=== PATIENT | female | born 1960 | race Caucasian/White ===

== ENCOUNTER 2019-03-22 16:47 | Emergency (ER) | payer MEDICARE, OTHER ==
[~2019-03-22] VITALS: Ht 167.6 cm; Wt 81.2 kg
[2019-03-22] MEDS ORDERED: IBUPROFEN 800 MG (MOTRIN) TAB PO STA (17:21)
--- OUTSIDE RECORDS SUMMARY | 2019-03-22 17:30 | XMS REPORT ---
Author Author KEVIN RUBI [employer] Address Unknown Phone Unavailable Care Team Providers Care Senior Revenue Accountant Name Role Phone KEVIN RUBI CP Unavailable Allergies, Adverse Reactions, Alerts Substance Reaction Event Type Iodine Info Not Available Drug Allergy Codeine Sulfate Info Not Available Drug Allergy Problems Problem Type Condition Code Onset Dates Condition Status Assessment Dental examination Z01.20 Active Medications Medication Code System Code Instructions Start Date End Date Status Dosage Methadone HCl [facility] [address]-76 not defined Metformin HCl [facility] [address]-00 not defined Nexium [facility] [address]-34 not defined Potassium NDC 0 [place] [address]-66 not defined Lisinopril-Hydrochlorothiazide [facility] [address]-15 not defined Wellbutrin NDC 0 not defined Simvastatin [facility] [address]-88 not defined Lidoderm [facility] [address]-68 [place] [address]-46 not defined BusPIRone HCl [facility] [address]-46 not defined Procedures Procedure Coding System Code Date INTRAORL-PERIAPICAL 1 FILM 70029 CPT-4 D0220 Sep 02, 2016 INTRAORL-PERIAPICAL EA ADD FILM CPT-4 D0230 Sep 02, 2016 LTD ORAL EVALUATION - PROBLEM FOCUS CPT-4 D0140 Sep 02, 2016 INTRAORL-PERIAPICAL EA ADD FILM CPT-4 D0230 Sep 02, 2016 INTRAORL-PERIAPICAL EA ADD FILM CPT-4 D0230 Sep 02, 2016 INTRAORL-PERIAPICAL EA ADD FILM CPT-4 D0230 Sep 02, 2016 INTRAORL-PERIAPICAL EA ADD FILM CPT-4 D0230 Sep 02, 2016 Vital Signs Date/Time: Sep 02, 2016 Blood Pressure Diastolic 74, mmHg Blood Pressure Systolic 129 mmHg Results No Known Results Summary Purpose eClinicalWorks Submission
[2019-03-22 17:32] LABS: BILIRUBIN,URINE NEGATIVE (NEGATIVE); CLARITY,URINE CLEAR; COLOR,URINE YELLOW; GLUCOSE, URINE (UA) NEGATIVE (NEGATIVE); KETONES,URINE NEGATIVE (NEGATIVE); LEUKOCYTE ESTERASE ,URINE 1+ (NEGATIVE); NITRITE,URINE NEGATIVE (NEGATIVE); PH,URINE 5 (5-9); PROTEIN,URINE 1+ (NEGATIVE); UROBILINOGEN,URINE NORMAL (NORMAL)
[2019-03-22 17:43] LABS: BACTERIA,URINE NEGATIVE /HPF; SQUAMOUS EPITHELIAL CELL,UR RARE /HPF; WBC,URINE RARE /HPF
[2019-03-22 17:46] LABS: AMPHETAMINE SCREEN, URINE NEGATIVE (NEGATIVE); BARBITURATE SCREEN URINE NEGATIVE (NEGATIVE); BENZODIAZEPINES SCREEN URINE POSITIVE (NEGATIVE); CANNABINOID SCREEN, URINE NEGATIVE (NEGATIVE); COCAINE SCREEN URINE NEGATIVE (NEGATIVE); METHADONE STAT NEGATIVE (NEGATIVE); METHAMPHETAMINE SCREEN URINE S NEGATIVE (NEGATIVE); OPIATE SCREEN URINE NEGATIVE (NEGATIVE); OXYCODONE STAT NEGATIVE (NEGATIVE); PROPOXYPHENE STAT NEGATIVE (NEGATIVE); TRICYCLIC ANTIDEPRESSANTS SCRE POSITIVE (NEGATIVE)
--- NOTE | 2019-03-22 18:03 | Diagnostic Imaging Report ---
INDICATION: Fall. Back pain. FINDINGS: There is very slight anterolisthesis of L4 on L5. Alignment is otherwise normal. The vertebral body heights are maintained. There is disc space height loss at L4-5 and L5-S1 as well as advanced facet arthropathy at each level. The visualized bones of the pelvis are unremarkable. There are surgical clips in the right upper quadrant. IMPRESSION: 1. Lumbar degenerative disc disease and facet arthropathy, most advanced at L4-5 and L5-S1. The vertebral body heights are well maintained. There is slight degenerative anterolisthesis of L4 on L5. Alignment is otherwise normal. Dictated by: Dictated on workstation # [id number]
--- NOTE | 2019-03-22 18:05 | Diagnostic Imaging Report ---
EXAMINATION: Two views of the thoracic spine. INDICATION: Fall and back pain. FINDINGS: Alignment of the thoracic spine appears normal. There vertebral body heights appear maintained. There are mild degenerative endplate changes with endplate sclerosis and some small anterior thoracic osteophytes. All pedicles are unremarkable in the AP view. No posterior rib fracture evident and the visualized portion of the lungs appears clear. IMPRESSION: Mild thoracic degenerative disc disease. The vertebral body heights appear maintained. Alignment appears normal. Dictated by: Dictated on workstation # [id number]
--- NOTE | 2019-03-22 18:22 | ED Back Pain ---
General Chief Complaint: Back Problems Stated Complaint: FALL,BACK PAIN Nursing Triage Note: Pt taken to rm 9 in wheelchair. Pt reports slipping off of bed this morning, falling directly onto back and grandson falling on top of pt. Pt reports falling on a phone body piercer. Pt reports more pain on the L side. Nursing Sepsis Screen: No Definite Risk History of Present Illness Date Seen by Provider: Mar 22, 2019 Time Seen by Provider: 17:00 Initial Comments 58 -year-old female presents for low mid and low back pain. She reports this morning that she slid off the bed and landed on her buttocks, then her 3 year old grandchild fell on top of her. She has a long-standing history of cervical disc disease. She is scheduled to see a claims account specialist at [facility] next Tuesday for chronic lumbar pain. She denies any paresthesias or radicular symptoms in her lower extremities. No bowel or bladder incontinence or retention. She is on Suboxone and cannot take additional pain medication other than Tylenol or ibuprofen. She is on Flexeril and took a 10 mg tablet this morning and just before coming here. Timing/Duration: 4-6 Hours Severity: Mild Pain/Injury Location: Back Method of Injury: Fall Associated Symptoms: muscle spasms; No weakness, No numbness in legs/feet, No tingling in legs/feet, No sensory/motor loss; lower back pain; No loss of bladder control, No loss of bowel control Allergies and Home Medications Allergies Coded Allergies: No Known Drug Allergies (Unverified , 03/22/19) Patient Home Medication List Home Medication List Reviewed: Yes Review of Systems Constitutional: no symptoms reported Musculoskeletal: see HPI, back pain All Other Systems Reviewed Negative Unless Noted: Yes Past Iwamogu-Mqpxey-Avnnnu Hx Past Med/Social Hx: Reviewed Nursing Past Med/Soc Hx Patient Social History Alcohol Use: Denies Use Recreational Drug Use: No Smoking Status: Never a Smoker 2nd Hand Smoke Exposure: No Recent Foreign Travel: No Contact w/Someone Who Travel: No Recent Infectious Disease Expo: No Recent Hopitalizations: No Physical Abuse: No Sexual Abuse: No Past Medical History Cardiac: Yes (tachycardia) Irregular Heartbeat Musculoskeletal: Yes Arthritis, Fibromyalgia Anxiety, Depression Physical Exam Vital Signs Vital Signs - First Documented 03/22/19 16:55 Temp 98.2 Pulse 113 Resp 22 B/P (MAP) 149/76 (100) Pulse Ox 99 O2 Delivery Room Air Capillary Refill : Less Than 3 Seconds Height, Weight, BMI Height: 5'6.00" Weight: 179lbs. oz. 81.436156qu; BMI Method:Stated General Appearance: No Apparent Distress, WD/WN Neck: Full Range of Motion, Normal Inspection, Non Tender, Supple Cardiovascular: Regular Rate, Rhythm, No Edema, No Murmur, Normal Peripheral Pulses Respiratory: Chest Non Tender, Lungs Clear, Normal Breath Sounds Gastrointestinal: Normal Bowel Sounds, Non Tender, Soft Back: Normal Inspection, No Vertebral Tenderness, Decreased Range of Motion ( secondary to pain), Muscle Spasm; No Vertebral Tenderness; Other (Power V/V L4- S1, neg SLR. Steady gait, able to toe and heel walk. ) Neurologic/Psychiatric: Alert, Oriented x3, No Motor/Sensory Deficits, Normal Mood/Affect Progress/Results/Core Measures Results/Orders Lab Results Laboratory Tests Test 03/22/19 16:59 Range/Units Urine Color YELLOW Urine Clarity CLEAR Urine pH 5 5-9 Urine Specific [place] 1.020 1.016-1.022 Urine Protein 1+ H NEGATIVE Urine Glucose (UA) NEGATIVE NEGATIVE Urine Ketones NEGATIVE NEGATIVE Urine Nitrite NEGATIVE NEGATIVE Urine Bilirubin NEGATIVE NEGATIVE Urine Urobilinogen NORMAL NORMAL MG/DL Urine Leukocyte Esterase 1+ H NEGATIVE Urine RBC (Auto) NEGATIVE NEGATIVE Urine RBC NONE /HPF Urine WBC RARE /HPF Urine Squamous Epithelial Cells RARE /HPF Urine Crystals NONE /LPF Urine Bacteria NEGATIVE /HPF Urine Casts PRESENT /LPF Urine Hyaline Casts 10-25 H /LPF Urine Mucus NEGATIVE /LPF Urine Culture Indicated NO Urine Opiates Screen NEGATIVE NEGATIVE Urine Oxycodone Screen NEGATIVE NEGATIVE Urine Methadone Screen NEGATIVE NEGATIVE Urine Propoxyphene Screen NEGATIVE NEGATIVE Urine Barbiturates Screen NEGATIVE NEGATIVE Ur Tricyclic Antidepressants Screen POSITIVE H NEGATIVE Urine Phencyclidine Screen NEGATIVE NEGATIVE Urine Amphetamines Screen NEGATIVE NEGATIVE Urine Methamphetamines Screen NEGATIVE NEGATIVE Urine Benzodiazepines Screen POSITIVE H NEGATIVE Urine Cocaine Screen NEGATIVE NEGATIVE Urine Cannabinoids Screen NEGATIVE NEGATIVE My Orders Orders - DAIJA WARD Drug Screen Stat (Urine) (03/22/19 16:54) Ua Culture If Indicated (03/22/19 16:54) Thoracic Spine, 2 Views Only (03/22/19 17:21) Lumbar Spine - 2-3 Views (03/22/19 17:21) Ibuprofen Tablet (Motrin Tablet) (03/22/19 17:21) Vital Signs/I&O 03/22/19 03/22/19 16:55 18:40 Temp 98.2 98.2 Pulse 113 104 Resp 22 18 B/P (MAP) 149/76 (100) 122/69 (86) Pulse Ox 99 97 O2 Delivery Room Air Room Air Blood Pressure Mean: 100 Diagnostic Imaging Plain Films/CT/US/NM/MRI: other (L-spine) Comments [facility] [place] NAME: DELL LYLES [facility] REC#: [id number] PT STATUS: REG ER : 1960 PHYSICIAN: DAIJA WARD ADMIT DATE: 03/22/19/ER Draft Date of Exam:03/22/19 LUMBAR SPINE - 2-3 VIEWS INDICATION: Fall. Back pain. FINDINGS: There is very slight anterolisthesis of L4 on L5. Alignment is otherwise normal. The vertebral body heights are maintained. There is disc space height loss at L4-5 and L5-S1 as well as advanced facet arthropathy at each level. The visualized bones of the pelvis are unremarkable. There are surgical clips in the right upper quadrant. IMPRESSION: 1. Lumbar degenerative disc disease and facet arthropathy, most advanced at L4-5 and L5-S1. The vertebral body heights are well maintained. There is slight degenerative anterolisthesis of L4 on L5. Alignment is otherwise normal. Dictated on workstation # [id number] Dict: 03/22/19 1758 Trans: 03/22/19 1802 [id number] Interpreted by: BARBARA ANDERSON MD Electronically signed by: Reviewed: Reviewed by Me Diagonstic Imaging: Xray Plain Films/CT/US/NM/MRI: other ( T-spine) Comments NAME: DELL LYLES MED REC#: [id number] PT STATUS: REG ER : 1960 PHYSICIAN: DAIJA WARD ADMIT DATE: 03/22/19/ER Draft Date of Exam:03/22/19 THORACIC SPINE, 2 VIEWS ONLY EXAMINATION: Two views of the thoracic spine. INDICATION: Fall and back pain. FINDINGS: Alignment of the thoracic spine appears normal. There vertebral body heights appear maintained. There are mild degenerative endplate changes with endplate sclerosis and some small anterior thoracic osteophytes. All pedicles are unremarkable in the AP view. No posterior rib fracture evident and the visualized portion of the lungs appears clear. IMPRESSION: Mild thoracic degenerative disc disease. The vertebral body heights appear maintained. Alignment appears normal. Dictated on workstation # [id number] Dict: 03/22/19 1759 Trans: 03/22/19 1804 [id number] Interpreted by: BARBARA ANDERSON MD Electronically signed by: Reviewed: Reviewed by Me Departure Impression Primary Impression: Back pain Qualified Codes: M54.5 - Low back pain Disposition: 01 HOME, SELF-CARE Condition: Improved Departure-Patient Inst. Decision time for Depature: 18:10 Referrals: GSUTAVO SHINE DO (PCP/Family) Primary Care Physician Patient Instructions: Low Back Pain (DC), Muscle Strain (DC) Add. Discharge Instructions: Alternate heat and ice on low back for 20 minutes at a time. Keep your scheduled appointment with [facility]. Continue to take your home medications as previously prescribed. You may take ibuprofen 600 mg every 8 hours as needed for pain. Activity as tolerated. Return to emergency department for new, urgent health care needs. All discharge instructions reviewed with patient and/or family. Voiced understanding. DAIJA WARD Mar 22, 2019 18:22
[2019-03-22 18:40] VITALS: BP 122/69
== END 2019-03-22 18:35 | disposition home or self-care (01) ==
LOC: ER 16:49
DX: M54.5 Low back pain (principal); M50.30 Other cervical disc degeneration, unspecified cervical region; M79.7 Fibromyalgia; F41.9 Anxiety disorder, unspecified; F32.9 Major depressive disorder, single episode, unspecified; W06.XXXA Fall from bed, initial encounter
CPT/HCPCS: 72070; 72100; 80306; 81000

== ENCOUNTER 2019-03-25 17:24 | Emergency (ER) | payer MEDICARE ==
[~2019-03-25] VITALS: Ht 167.6 cm; Wt 77.6 kg
--- NOTE | 2019-03-25 17:40 | ED Neck-Back Pain/Injury ---
General Chief Complaint: Head/Cervical Problems Stated Complaint: NECK PAIN Nursing Triage Note: pt fell out of bed and hit hard wood floor. Pt was seen in ED here and was discharged. The pain was not really hurting at that time. Now she has pain that radiates down the left shoulder. This pain is giving her a RUBY. Pt has limited ROM but this is not new. She has a hx of neck issues. Nursing Sepsis Screen: No Definite Risk Source of Information: Patient Exam Limitations: No Limitations History of Present Illness Date Seen by Provider: Mar 25, 2019 Time Seen by Provider: 17:40 Initial Comments 58-year-old female who presents to the emergency room with complaints of neck pain after falling out of bed last . She reports she was seen and evaluated here in the emergency room at the time of the injury but reports that she's been having neck pain that radiates down her left shoulder after a fall. She reports she has chronic neck problems/pain. Location: C-Spine Pain/Injury Location: Neck Method of Injury: Fall Associated Symptoms: No loss of bladder control, No loss of bowel control Allergies and Home Medications Allergies Coded Allergies: No Known Drug Allergies (Unverified , 03/22/19) Patient Home Medication List Home Medication List Reviewed: Yes Review of Systems Constitutional: see HPI; No chills, No fever Musculoskeletal: see HPI, neck pain All Other Systems Reviewed Negative Unless Noted: Yes Past Kfsltmz-Khmjtn-Ytsilc Hx Past Med/Social Hx: Reviewed Nursing Past Med/Soc Hx Patient Social History Alcohol Use: Denies Use Recreational Drug Use: No 2nd Hand Smoke Exposure: No Recent Foreign Travel: No Contact w/Someone Who Travel: No Recent Infectious Disease Expo: No Recent Hopitalizations: No Past Medical History Cardiac: Yes (tachycardia) Irregular Heartbeat Musculoskeletal: Yes Arthritis, Fibromyalgia Anxiety, Depression Family Medical History Reviewed Nursing Family Hx Physical Exam Vital Signs Vital Signs - First Documented 03/25/19 03/25/19 17:29 18:28 Temp 98.4 Pulse 108 Resp 18 B/P (MAP) 130/67 (88) Pulse Ox 100 O2 Delivery Room Air Capillary Refill : Less Than 3 Seconds Height, Weight, BMI Height: 5'6.00" Weight: 171lbs. oz. 77.519796ef; BMI Method:Stated General Appearance: No Apparent Distress, WD/WN Cardiovascular: Regular Rate, Rhythm, No Edema, No Gallop, No JVD, No Murmur, Normal Peripheral Pulses Respiratory: Chest Non Tender, Lungs Clear, Normal Breath Sounds, No Accessory Muscle Use, No Respiratory Distress, Accessory Muscle Use Extremity: Normal Capillary Refill Neurologic/Psychiatric: Alert, Oriented x3, Normal Mood/Affect Skin: Normal Color, Warm/Dry Progress/Results/Core Measures Results/Orders My Orders Orders - KYM KEVIN Ct Cervical Spine Wo (03/25/19 17:39) Ketorolac Injection (Toradol Injection) (03/25/19 17:45) Medications Given in ED Vital Signs/I&O 03/25/19 03/25/19 17:29 18:28 Temp 98.4 97.4 Pulse 108 78 Resp 18 18 B/P (MAP) 130/67 (88) 138/82 (100) Pulse Ox 100 O2 Delivery Room Air Room Air Blood Pressure Mean: 88 Diagnostic Imaging Diagonstic Imaging: CT Plain Films/CT/US/NM/MRI: c-spine Comments NAME: DELL LYLES [facility] REC#: [id number] PT STATUS: REG ER : 1960 PHYSICIAN: KYM KEVIN ADMIT DATE: 03/25/19/ER Signed Date of Exam: 03/25/19 CT CERVICAL SPINE WO PROCEDURE: CT cervical spine without contrast. TECHNIQUE: Multiple contiguous axial images were obtained through the cervical spine without the use of intravenous contrast. Sagittal and coronal reformations were then performed. Auto Exposure Controls were utilized during the CT exam to meet ALARA standards for radiation dose reduction. INDICATION: Fall with left shoulder pain and neck pain. COMPARISON: No prior studies are available for comparison. FINDINGS: There is straightening and slight reversal of the normal cervical lordotic curvature. There is significant multilevel degenerative disc disease with variable disc space narrowing and marginal spurring. There is also severe left-sided facet arthropathy from the C2-C5 levels. No fractures are seen. Prevertebral tissues are within normal limits. The odontoid is intact. IMPRESSION: Severe cervical spondylosis. No acute bony abnormality is detected. Dictated by: Dictated on workstation # [id number] Dict: 03/25/191810 Trans: 03/25/192058 Interpreted by: RENETTA CUNNINGHAM MD Electronically signed by: RENETTA CUNNINGHAM MD 03/25/192058 Reviewed: Reviewed by Me Departure Impression Primary Impression: Neck sprain Disposition: 01 HOME, SELF-CARE Condition: Stable/Unchanged Departure-Patient Inst. Decision time for Depature: 18:17 Referrals: GUSTAVO SHINE DO (PCP/Family) Primary Care Physician Patient Instructions: Cervical Muscle Strain (DC) Add. Discharge Instructions: You may use ibuprofen and Tylenol as directed by the bottle for pain relief. Alternating ice and heat to the sore areas at 20 minute intervals may be beneficial in alleviating pain. Follow-up with your primary care provider as needed. Return back to the emergency room for worsening symptoms or concerns as needed. All discharge instructions reviewed with patient and/or family. Voiced understanding. KYM KEVIN Mar 25, 2019 17:40
[2019-03-25] MEDS ORDERED: KETOROLAC 60 MG/2 ML VIAL IM ONE (17:45)
--- NOTE | 2019-03-25 18:14 | Diagnostic Imaging Report ---
PROCEDURE: CT cervical spine without contrast. TECHNIQUE: Multiple contiguous axial images were obtained through the cervical spine without the use of intravenous contrast. Sagittal and coronal reformations were then performed. Auto Exposure Controls were utilized during the CT exam to meet ALARA standards for radiation dose reduction. INDICATION: Fall with left shoulder pain and neck pain. COMPARISON: No prior studies are available for comparison. FINDINGS: There is straightening and slight reversal of the normal cervical lordotic curvature. There is significant multilevel degenerative disc disease with variable disc space narrowing and marginal spurring. There is also severe left-sided facet arthropathy from the C2-C5 levels. No fractures are seen. Prevertebral tissues are within normal limits. The odontoid is intact. IMPRESSION: Severe cervical spondylosis. No acute bony abnormality is detected. Dictated by: Dictated on workstation # [id number]
[2019-03-25 18:28] VITALS: BP 138/82
== END 2019-03-25 18:28 | disposition home or self-care (01) ==
LOC: EDUNIT# 17:24 → ER 17:25
DX: S13.4XXA Sprain of ligaments of cervical spine, initial encounter (principal); M79.7 Fibromyalgia; F41.9 Anxiety disorder, unspecified; F32.9 Major depressive disorder, single episode, unspecified; Z86.69 Personal history of other diseases of the nervous system and sense organs; W22.09XA Striking against other stationary object, initial encounter
CPT/HCPCS: 72125

== ENCOUNTER 2019-05-20 13:51 | Emergency (ER) | payer MEDICARE | END 2019-05-20 15:20 | disposition home or self-care (01) | LOC: ER 13:51 ==

== ENCOUNTER → 2019-08-20 | Outpatient (CLI) | payer MEDICARE ==
[2019-08-20 09:40] LABS: ALANINE AMINOTRANSFERASE 19 U/L (0-55); ALBUMIN 4.1 GM/DL (3.2-4.5); ALKALINE PHOSPHATASE 76 U/L (40-136); BILIRUBIN,TOTAL 0.2 MG/DL (0.1-1.0); BUN/CREATININE RATIO 16; CARBON DIOXIDE 26 MMOL/L (21-32); CHLORIDE 106 MMOL/L (98-107); CHOLESTEROL 126 MG/DL (< 200); CREATININE SERUM 0.85 MG/DL (0.60-1.30); GFR ESTIMATED > 60; GLUCOSE 111 MG/DL (70-105); HDL CHOLESTEROL 44 MG/DL (40-60); POTASSIUM 3.9 MMOL/L (3.6-5.0); SODIUM 141 MMOL/L (135-145); TOTAL PROTEIN 6.9 GM/DL (6.4-8.2); TRIGLYCERIDES 79 MG/DL (<150); VLDL CHOLESTEROL 16 MG/DL (5-40)
== END ==
LOC: LAB 08:35
PROVIDERS: ATTEND Internal Medicine Cardiovascular Disease
DX: E78.2 Mixed hyperlipidemia (principal); E11.9 Type 2 diabetes mellitus without complications; I10 Essential (primary) hypertension; R06.09 Other forms of dyspnea; R00.0 Tachycardia, unspecified
CPT/HCPCS: 36415; 80053; 80061; 84443

== ENCOUNTER → 2019-08-20 | Outpatient (CLI) | payer MEDICARE ==
[~2019-08-20] VITALS: Ht 168 cm; Wt 75.0 kg
[~2019-08-20] MED LIST: CATHETER FLUSH 10 ML SYR IV PRN; REGADENOSON 0.4 MG/5 ML SYR (LEXISCAN) IV ONE
[2019-08-20 10:22] VITALS: BP 145/78
[2019-08-20 10:23] VITALS: BP 118/59
--- NOTE | 2019-08-20 16:51 | STRESS TEST ---
DATE OF SERVICE: 08/20/2019 LEXISCAN MYOVIEW STRESS TEST REPORT REFERRING PHYSICIAN: Dr. Erickson. Baseline heart rate is 92. Baseline blood pressure 145/78. Baseline EKG is sinus rhythm with no ischemic changes. In summary, the patient was injected with 10.43 mCi of technetium-99 Myoview and the resting images were obtained. Then, the patient received 0.4 mg of Lexiscan followed by 30.6 mCi of technetium-99 Myoview. Throughout the test, there were no EKG changes. The resting and stress images were reviewed and compared in the short axis, horizontal long axis, and vertical long axis views. Review of the images showed a good radiotracer uptake with no significant ischemia or infarction. SSS is 1, SDS 1, TID value 0.99. On the gated images, the left ventricle appeared to be normal in size with normal contractility. Calculated ejection fraction 79%. CONCLUSION: 1. The patient tolerated Lexiscan well. 2. No significant ischemia or infarction on SPECT images. 3. Normal left ventricular size with normal contractility. Calculated ejection fraction 79%. Job ID: [id number] DocumentID: [id number] Dictated Date: 08/20/2019 11:59:29 Biometrics Analyst Date: 08/20/2019 16:49:38 Dictated By: TANVIR HUNT MD
== END ==
LOC: CARD 08:31
PROVIDERS: ATTEND Internal Medicine Cardiovascular Disease
DX: E78.2 Mixed hyperlipidemia (principal); I10 Essential (primary) hypertension; E11.9 Type 2 diabetes mellitus without complications; R00.0 Tachycardia, unspecified
CPT/HCPCS: 78452; 93017; 93306

== ENCOUNTER 2019-09-26 03:26 | Emergency (ER) | payer MEDICARE ==
[~2019-09-26] VITALS: Ht 167 cm; Wt 72.0 kg
[2019-09-26] MEDS ORDERED: NS IV 1000 ML 1,000 ML IV SCH (03:40)
[2019-09-26] MEDS ORDERED: KETAMINE/NaCl 50 MG/5 ML SYRINGE (ED ONLY) IV ONE (03:45)
--- NOTE | 2019-09-26 03:46 | ED Fall/Injury ---
General Stated Complaint: FALL Source: patient, EMS Exam Limitations: no limitations History of Present Illness Date Seen by Provider: Sep 26, 2019 Time Seen by Provider: 03:27 Initial Comments Patient presents to ER by EMS with chief complaint of about 30-45 minutes prior to arrival she had gotten up and felt unsteady on her feet and fell backwards onto her back striking the back of her head. She says she has no pain in her head and has just baseline pain in her neck. She has pain on her low back midline. One week ago she had a spinal fusion of her cervical spine at [facility] and she said the Center home but her pain was not under control. They gave her Dilaudid of unknown strength which she takes 2 tablets every 3 hours. She says it does not completely control her pain. She's also been having occasional nausea but does not have any nausea medicine. She denies nausea now. She has no fevers chills cough shortness of breath nausea, diarrhea, constipation, dysuria or discharge. Allergies and Home Medications Allergies Coded Allergies: iodine (Verified Allergy, Severe, BLISTERS, 05/20/19) codeine (Verified Adverse Reaction, Unknown, HALLUCINATIONS, 05/20/19) divalproex sodium (Verified Adverse Reaction, Unknown, HALLUCINATIONS, 05/20/19) Patient Home Medication List Home Medication List Reviewed: Yes Review of Systems Review of Systems Constitutional: No chills, No diaphoresis, No fever Eyes: Denies Blindness, Denies Blurred Vision Ears, Nose, Mouth, Throat: denies ear pain, denies nose pain Respiratory: No cough, No hemoptysis Cardiovascular: No chest pain, No edema Gastrointestinal: No abdominal pain, No nausea, No vomiting Genitourinary: No discharge, No dysuria Musculoskeletal: see HPI, back pain, neck pain Past Zhmnhvr-Meqasf-Eszxzx Hx Patient Social History Alcohol Use: Denies Use Recreational Drug Use: No Smoking Status: Never a Smoker 2nd Hand Smoke Exposure: No Recent Foreign Travel: No Contact w/Someone Who Travel: No Recent Hopitalizations: No Seasonal Allergies Seasonal Allergies: Yes Past Medical History Surgeries: Yes Gallbladder, Orthopedic, Tubal Ligation Respiratory: Yes Asthma Cardiac: Yes (tachycardia) Irregular Heartbeat Neurological: No (CHRONIC LYME DISEASE) Genitourinary: No Gastrointestinal: No Musculoskeletal: Yes Arthritis, Fibromyalgia Endocrine: Yes (BORDERLINE DIABETES) Cancer: No Psychosocial: Yes Anxiety, Depression Integumentary: No Physical Exam Vital Signs Vital Signs - First Documented 09/26/19 03:28 Temp 35.9 Pulse 105 Resp 18 B/P (MAP) 94/56 (69) Pulse Ox 99 O2 Delivery Room Air Capillary Refill : Height, Weight, BMI Height: 5'6.00" Weight: 160lbs. oz. 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, no motor/sensory deficits, alert, normal mood/affect, oriented x 3 Progress/Results/Core Measures Results/Orders My Orders Orders - ISABEL DOE Ct Head/Cervical Spine Wo (09/26/19 03:34) Ketamine/Nacl Syringe (Ketamine/Nacl Syr (09/26/19 03:45) Ed Iv/Invasive Line Start (09/26/19 03:40) Ns Iv 1000 Ml (Sodium Chloride 0.9%) (09/26/19 03:40) Ct Pelvis Wo (09/26/19 03:46) Medications Given in ED Current Medications Medications Dose Ordered Sig/Erika Route Start Time Stop Time Status Last Admin Dose Admin Ketamine HCl 15 mg ONCE ONCE IV 09/26/19 03:45 09/26/19 03:46 DC 09/26/19 03:46 15 MG Vital Signs/I&O 09/26/19 03:28 Temp 35.9 Pulse 105 Resp 18 B/P (MAP) 94/56 (69) Pulse Ox 99 O2 Delivery Room Air Progress Progress Note #1: Time: 03:45 Progress Note The patient presents with a dry oral mucosa and a soft blood pressure. She may not be drinking enough and she may also be having some borderline hypotension secondary to her opiate use. She says her pain is not under control so we plan to give her the ketamine and a liter fluids. CT of the head, C-spine and pelvis Progress Note #2: Time: 05:07 Progress Note Patient says her back is better now however she has a headache. Toradol 30 mg IV. Her blood pressure is significantly improved 115/66. She is no longer orthostatic. We will allow her to follow up outpatient with her surgeon and primary care for continued pain management. Diagnostic Imaging Diagonstic Imaging: CT (without IV contrast) Plain Films/CT/US/NM/MRI: c-spine, head Comments No acute intracranial pathology. No acute traumatic related pathology of the C-spine. Reviewed: Reviewed Night Hawk Study, Reviewed by Me Diagonstic Imaging: CT Plain Films/CT/US/NM/MRI: pelvis Comments No acute findings. Reviewed: Reviewed Night Hawk Study, Reviewed by Me Departure Impression Primary Impression: Fall Qualified Codes: W19.XXXA - Unspecified fall, initial encounter Additional Impressions: Coccyx contusion Qualified Codes: S30.0XXA - Contusion of lower back and pelvis, initial encounter Orthostatic hypotension Headache Qualified Codes: R51 - Headache Disposition: 01 HOME, SELF-CARE Condition: Stable Departure-Patient Inst. Decision time for Depature: 05:07 Referrals: GUSTAVO SHINE DO (PCP/Family) Primary Care Physician Patient Instructions: Coccyx Injury, Contusion (DC) Add. Discharge Instructions: Please follow-up with either the surgeon or your primary care for continued pain management. Drink plenty of fluids to help prevent dizziness and falls. An ice pack can be helpful for pain. ISABEL DOE Sep 26, 2019 03:46 POS
[2019-09-26] MEDS ORDERED: KETOROLAC 30 MG/ML VIAL IVP ONE (05:15)
[2019-09-26 05:18] VITALS: BP 102/53
--- NOTE | 2019-09-26 06:27 | Diagnostic Imaging Report ---
PROCEDURE: CT head and CT cervical spine without contrast. TECHNIQUE: Multiple contiguous axial images were obtained through the brain and cervical spine without the use of intravenous contrast. Sagittal and coronal reformations through the cervical spine were then performed. Auto Exposure Controls were utilized during the CT exam to meet ALARA standards for radiation dose reduction. INDICATION: Fall, head and neck injury. COMPARISON: CT cervical spine, 03/25/2019. CT HEAD: Ventricles are normal in size, shape and position. There is no midline shift or mass effect. There is no hemorrhage or evidence of acute ischemia. There is no skull fracture. Paranasal sinuses and mastoids are clear. IMPRESSION: Negative CT head. CT cervical spine: There has been extensive laminectomy and fusion extending from C1 through C6. Orthopedic hardware appears to be well seated. There is no traumatic malalignment or fracture. Diffuse degenerative changes are present. The craniocervical junction and cervicothoracic junction anatomy are intact. IMPRESSION: No traumatic malalignment or fracture. Agree with preliminary report. Dictated by: Dictated on workstation # [id number]
--- NOTE | 2019-09-26 06:42 | Diagnostic Imaging Report ---
PROCEDURE: CT pelvis without contrast. TECHNIQUE: Multiple contiguous axial images were obtained through the pelvis without the use of intravenous contrast. Sagittal and coronal reformations were performed. Auto Exposure Controls were utilized during the CT exam to meet ALARA standards for radiation dose reduction. INDICATION: Fall with pelvic and hip pain. COMPARISON: None. FINDINGS: Bilateral hips are symmetric and unremarkable. No dislocation or fracture is seen. SI joints are symmetric. The symphysis is approximated. There is no osseous lesion. No hemorrhage or hematoma is identified. IMPRESSION: No fracture or dislocation. Agree with preliminary report. Dictated by: Dictated on workstation # [id number]
== END 2019-09-26 05:22 | disposition home or self-care (01) ==
LOC: EDUNIT# 03:26 → ER 03:28
DX: S30.0XXA Contusion of lower back and pelvis, initial encounter (principal); I95.1 Orthostatic hypotension; R51 Headache; J45.909 Unspecified asthma, uncomplicated; M79.7 Fibromyalgia; F41.9 Anxiety disorder, unspecified; F32.9 Major depressive disorder, single episode, unspecified; Z98.51 Tubal ligation status; Z88.5 Allergy status to narcotic agent; Z88.8 Allergy status to other drugs, medicaments and biological substances; W01.10XA Fall on same level from slipping, tripping and stumbling with subsequent striking against unspecified object, initial encounter
CPT/HCPCS: 70450; 72125; 72192; 96361; 96374; 96375

== ENCOUNTER → 2020-04-17 | Outpatient (CLI) | payer MEDICARE, MEDICAID ==
--- NOTE | 2020-04-17 17:09 | Diagnostic Imaging Report ---
INDICATION: Chronic right knee pain. TIME OF EXAM: 02:41 p.m. FINDINGS: Three views of the right knee were obtained. Alignment is normal. There is some medial compartmental degenerative change with mild joint space narrowing and marginal spurring. No fracture, dislocation, or effusion is seen. IMPRESSION: Degenerative changes. No acute bony abnormality is detected. Dictated by: Dictated on workstation # [id number]
== END ==
LOC: RAD FS 14:29
PROVIDERS: ATTEND Nurse Practitioner
DX: M17.11 Unilateral primary osteoarthritis, right knee (principal)
CPT/HCPCS: 73562

== ENCOUNTER → 2020-06-30 | Outpatient (CLI) | payer MEDICARE, MEDICAID ==
--- NOTE | 2020-06-30 11:41 | Diagnostic Imaging Report ---
INDICATION: Left knee pain COMPARISON: None. FINDINGS: 3 views of the left knee joint demonstrate no acute fracture or dislocation. No focal osseous lesions are seen. No significant joint effusion is seen. The surrounding soft tissue structures are unremarkable. There are no radiopaque foreign bodies. IMPRESSION: 1. No acute fractures or dislocations of the left knee joint. Dictated by: Dictated on workstation # [id number]
== END ==
LOC: RAD FS 11:11
PROVIDERS: ATTEND Nurse Practitioner
DX: M25.562 Pain in left knee (principal)
CPT/HCPCS: 73562

== ENCOUNTER 2020-11-03 17:03 | Emergency (ER) | payer MEDICARE, MEDICAID ==
[~2020-11-03] VITALS: Ht 167.7 cm; Wt 81.6 kg
[2020-11-03] MEDS ORDERED: KETOROLAC 60 MG/2 ML VIAL IM ONE (17:30)
[2020-11-03] MEDS ORDERED: PROCHLORPERAZINE 10 MG/2ML INJ (COMPAZINE) IM ONE (17:30)
[2020-11-03] MEDS ORDERED: diphenhydrAMINE 50 MG/ML INJ (BENADRYL) IM ONE (17:30)
--- NOTE | 2020-11-03 17:31 | ED Headache ---
General Chief Complaint: Head/Cervical Problems Stated Complaint: HEADACHE Source: patient Exam Limitations: no limitations History of Present Illness Date Seen by Provider: Nov 03, 2020 Time Seen by Provider: 17:30 Initial Comments ER with a headache mostly right-sided since of last week. She has a history of headaches but nothing since "getting my neck fixed last year". She states that it feels better in a dark room. She has had some nausea with this. Severity/Quality: moderate Prior Headaches/Recent Trauma: occasional headaches Associated Symptoms: nausea/vomiting Allergies and Home Medications Allergies Coded Allergies: iodine (Verified Allergy, Severe, BLISTERS, 05/20/19) codeine (Verified Adverse Reaction, Unknown, HALLUCINATIONS, 05/20/19) divalproex sodium (Verified Adverse Reaction, Unknown, HALLUCINATIONS, 05/20/19) Patient Home Medication List Home Medication List Reviewed: Yes Review of Systems Review of Systems Constitutional: see HPI Past Twoyryc-Fnppao-Pdwaeb Hx Patient Social History Alcohol Beverage of Choice: Beer 2nd Hand Smoke Exposure: No Recent Foreign Travel: No Contact w/Someone Who Travel: No Recent Hopitalizations: No Immunizations Up To Date Tetanus Booster (TDap): Unknown PED Vaccines UTD: Yes Seasonal Allergies Seasonal Allergies: Yes Past Medical History Surgeries: Yes (C1-C6 FUSED. 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 oz. 72.324442po; 25.00 BMI Method:Stated General Appearance: WD/WN, no apparent distress HEENT: PERRL/EOMI, normal ENT inspection Neck: non-tender, full range of motion Respiratory: no respiratory distress, no accessory muscle use Extremities: normal range of motion, non-tender Psychiatric: alert, oriented x 3 Motor/Sensory: no motor deficit, no sensory deficit Skin: normal color, warm/dry Progress/Results/Core Measures Results/Orders My Orders Orders - IRMA BURLESON APRN Ct Head Wo (11/03/20 17:28) Ketorolac Injection (Toradol Injection) (11/03/20 17:30) Prochlorperazine Injection (Compazine In (11/03/20 17:30) Diphenhydramine Injection (Benadryl Inje (11/03/20 17:30) Sumatriptan Injection (Imitrex Injection (11/03/20 18:45) Dexamethasone Injection (Decadron Injec (11/03/20 18:45) Ns Iv 1000 Ml (Sodium Chloride 0.9%) (11/03/20 18:45) Medications Given in ED Current Medications Medications Dose Ordered Sig/Erika Route Start Time Stop Time Status Last Admin Dose Admin Diphenhydramine HCl 50 mg ONCE ONCE IM 11/03/20 17:30 11/03/20 17:31 DC 11/03/20 17:50 50 MG Ketorolac Tromethamine 60 mg ONCE ONCE IM 11/03/20 17:30 11/03/20 17:31 DC 11/03/20 17:50 60 MG Prochlorperazine Edisylate 10 mg ONCE ONCE IM 11/03/20 17:30 11/03/20 17:31 DC 11/03/20 17:50 10 MG Vital Signs/I&O 11/03/20 17:35 Temp 36.2 Pulse 109 Resp 20 B/P (MAP) 147/96 (113) Pulse Ox 98 O2 Delivery Room Air Departure Communication (Admissions) 1850-provement after intramuscular Toradol Compazine Benadryl. Has a long history of Suboxone use. She quit back in June of this year. We will start an IV give IV fluids, decadron + IM imitrex. Impression Primary Impression: Headache Qualified Codes: R51 - Headache Disposition: 01 HOME, SELF-CARE Condition: Stable Departure-Patient Inst. Decision time for Depature: 18:12 Referrals: GUSTAVO SHINE DO (PCP/Family) Primary Care Physician Patient Instructions: Headache, Adult Add. Discharge Instructions: Emergency department focuses on treating and ruling out life-threatening diseases. Whenever possible, a diagnosis is given. However, most patients are given an impression based on their history, physical exam, and workup during your brief time in the ER. Information about probable diagnosis and other educational material has been provided. Please take the time to read and understand this information. It is very important that you follow up with a physician as discussed during the visit today. Failure to adhere to your follow-up instructions may lead to severe disability, injury, or so please make sure to keep your appointments or obtain one as requested. IRMA BURLESON TRENCH DIGGING MACHINE OPERATOR Nov 03, 2020 17:31
--- NOTE | 2020-11-03 18:04 | Diagnostic Imaging Report ---
TECHNIQUE: Multiple contiguous axial images were obtained through the brain without the use of intravenous contrast. Auto Exposure Controls were utilized during the CT exam to meet ALARA standards for radiation dose reduction. INDICATION: Headache and nausea times a week EXAMINATION: CT brain without contrast 11/03/2020 FINDINGS: Multiple axial images of the brain without contrast. There is no evidence for acute hemorrhage or infarct. There is no mass, mass effect, midline shift or hydrocephalus. The paranasal sinuses and mastoid air cells demonstrate no acute abnormality. IMPRESSION: No acute intracranial process. Dictated by: Dictated on workstation # [id number]
[2020-11-03] MEDS ORDERED: NS IV 1000 ML 1,000 ML IV SCH (18:45)
[2020-11-03] MEDS ORDERED: SUMAtriptan 6 MG/0.5 ML (IMITREX) INJ SQ ONE (18:45)
[2020-11-03 20:14] VITALS: BP 138/90
== END 2020-11-03 20:14 | disposition home or self-care (01) ==
LOC: EDUNIT# 17:03 → ER 17:04
DX: R51.9 Headache, unspecified (principal); Z88.5 Allergy status to narcotic agent; Z88.8 Allergy status to other drugs, medicaments and biological substances; Z91.041 Radiographic dye allergy status
CPT/HCPCS: 70450

== ENCOUNTER 2021-02-10 13:47 | Emergency (ER) | payer MEDICARE, MEDICAID ==
[~2021-02-10] VITALS: Ht 167.7 cm; Wt 88.4 kg
--- NOTE | 2021-02-10 14:57 | ED General ---
General Stated Complaint: HEADACHE; PALPITATION History of Present Illness Date Seen by Provider: Feb 10, 2021 Time Seen by Provider: 14:20 Initial Comments 60-year-old female presents with complaint of intermittent palpitations as well as a headache for the past few days. Patient has history of both, recently saw her primary care doctor and had changes to her Klonopin and her Seroquel doses for depression and insomnia. Patient denies recent illness, fever or chills, cough or shortness of air. Allergies and Home Medications Allergies Coded Allergies: iodine (Verified Allergy, Severe, BLISTERS, 05/20/19) codeine (Verified Adverse Reaction, Unknown, HALLUCINATIONS, 05/20/19) divalproex sodium (Verified Adverse Reaction, Unknown, HALLUCINATIONS, 05/20/19) Patient Home Medication List Home Medication List Reviewed: Yes Review of Systems Review of Systems Constitutional: no symptoms reported; No fever, No malaise, No weakness EENTM: no symptoms reported Respiratory: no symptoms reported Cardiovascular: see HPI; No chest pain, No edema; palpitations; No syncope, No vascular heart diseas Gastrointestinal: No abdominal pain, No nausea, No vomiting Musculoskeletal: muscle pain (chronic- fibromyalgia) Skin: No change in color, No rash Past Ojczyxl-Farkbt-Dzwtmt Hx Past Med/Social Hx: Reviewed Nursing Past Med/Soc Hx Patient Social History Alcohol Beverage of Choice: Beer Drug of Choice: CBD GUMMIES 2nd Hand Smoke Exposure: No Recent Hopitalizations: No Immunizations Up To Date Tetanus Booster (TDap): Unknown PED Vaccines UTD: Yes Seasonal Allergies Seasonal Allergies: Yes Past Medical History Surgeries: Yes (C1-C6 FUSED. 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 oz. 72.888572vz; 29.00 BMI Method:Stated General Appearance: No Apparent Distress, WD/WN HEENT: PERRL/EOMI, Normal ENT Inspection Respiratory: Chest Non Tender, Lungs Clear, No Accessory Muscle Use, No Respiratory Distress Cardiovascular: Regular Rate, Rhythm, No Edema, No JVD Gastrointestinal: Non Tender, Soft Back: Normal Inspection, No CVA Tenderness Extremity: Normal Capillary Refill, Non Tender Neurologic/Psychiatric: Alert, Oriented x3, No Motor/Sensory Deficits, Normal Mood/Affect Skin: Normal Color, Warm/Dry Progress/Results/Core Measures Suspected Sepsis SIRS Temperature: Pulse: Respiratory Rate: Laboratory Tests 02/10/21 14:59: White Blood Count 6.6 Blood Pressure / Mean: Laboratory Tests 02/10/21 14:59: Creatinine 0.85, Platelet Count 291, Total Bilirubin 0.3 Results/Orders Lab Results Laboratory Tests Test 02/10/21 14:59 Range/Units White Blood Count 6.6 4.3-11.0 10^3/uL Red Blood Count 4.24 L 4.35-5.85 10^6/uL Hemoglobin 11.7 11.5-16.0 G/DL Hematocrit 36 35-52 % Mean Corpuscular Volume 85 80-99 FL Mean Corpuscular Hemoglobin 28 25-34 PG Mean Corpuscular Hemoglobin Concent 33 32-36 G/DL Red Cell Distribution Width 13.7 10.0-14.5 % Platelet Count 291 130-400 10^3/uL Mean Platelet Volume 9.3 7.4-10.4 FL Immature Granulocyte % (Auto) 0 % Neutrophils (%) (Auto) 51 42-75 % Lymphocytes (%) (Auto) 39 12-44 % Monocytes (%) (Auto) 7 0-12 % Eosinophils (%) (Auto) 2 0-10 % Basophils (%) (Auto) 1 0-10 % Neutrophils # (Auto) 3.4 1.8-7.8 X 10^3 Lymphocytes # (Auto) 2.6 1.0-4.0 X 10^3 Monocytes # (Auto) 0.5 0.0-1.0 X 10^3 Eosinophils # (Auto) 0.2 0.0-0.3 10^3/uL Basophils # (Auto) 0.1 0.0-0.1 10^3/uL Immature Granulocyte # (Auto) 0.0 0.0-0.1 10^3/uL Sodium Level 142 135-145 MMOL/L Potassium Level 4.5 3.6-5.0 MMOL/L Chloride Level 105 98-107 MMOL/L Carbon Dioxide Level 26 21-32 MMOL/L Anion Gap 11 5-14 MMOL/L Blood Urea Nitrogen 13 7-18 MG/DL Creatinine 0.85 0.60-1.30 MG/DL Estimat Glomerular Filtration Rate > 60 BUN/Creatinine Ratio 15 Glucose Level 108 H 70-105 MG/DL Calcium Level 9.4 8.5-10.1 MG/DL Corrected Calcium 9.2 8.5-10.1 MG/DL Total Bilirubin 0.3 0.1-1.0 MG/DL Aspartate Amino Transf (AST/SGOT) 21 5-34 U/L Alanine Aminotransferase (ALT/SGPT) 20 0-55 U/L Alkaline Phosphatase 78 40-136 U/L Total Protein 6.8 6.4-8.2 GM/DL Albumin 4.3 3.2-4.5 GM/DL My Orders Orders - CARMEN ZHENG DO Cbc With Automated Diff (02/10/21 14:51) Comprehensive Metabolic Panel (02/10/21 14:51) Ekg Tracing (02/10/21 14:51) Vital Signs/I&O Capillary Refill : ECG Initial ECG Impression Date: Feb 10, 2021 Initial ECG Impression Time: 15:00 Initial ECG Rate: 105 Initial ECG Rhythm: Normal Sinus Initial ECG Intervals: Normal Initial ECG Impression: Normal Initial ECG Comparisson: No Previous ECG Available Departure Impression Primary Impression: Headache Qualified Codes: R51.9 - Headache, unspecified Additional Impression: Palpitations Disposition: 01 HOME, SELF-CARE Condition: Stable Departure-Patient Inst. Decision time for Depature: 15:39 Referrals: DWAINE OCHOA MD (PCP/Family) Primary Care Physician Patient Instructions: Headache, Adult ED, Palpitations (DC) Add. Discharge Instructions: Follow up with Dr Ochoa in 5 to 7 days CARMEN ZHENG DO Feb 10, 2021 14:56
[2021-02-10 15:07] LABS: HEMATOCRIT 36 % (35-52); HEMOGLOBIN 11.7 G/DL (11.5-16.0); MEAN CORPUSCULAR HEMOGLOBIN 28 PG (25-34); MEAN CORPUSCULAR HGB CONC 33 G/DL (32-36); MEAN CORPUSCULAR VOLUME 85 FL (80-99); WHITE BLOOD COUNT 6.6 10^3/uL (4.3-11.0)
[2021-02-10 15:08] LABS: BASOPHILS % (AUTO) 1 % (0-10); EOSINOPHILS % (AUTO) 2 % (0-10); LYMPHOCYTES % (AUTO) 39 % (12-44); MEAN PLATELET VOLUME 9.3 FL (7.4-10.4); MONOCYTES % (AUTO) 7 % (0-12); NEUTROPHILS % (AUTO) 51 % (42-75); PLATELET COUNT 291 10^3/uL (130-400)
[2021-02-10 15:09] LABS: BASOPHILS # (AUTO) 0.1 10^3/uL (0.0-0.1); EOSINOPHILS # (AUTO) 0.2 10^3/uL (0.0-0.3); LYMPHOCYTES # (AUTO) 2.6 X 10^3 (1.0-4.0); MONOCYTES # (AUTO) 0.5 X 10^3 (0.0-1.0); NEUTROPHILS # (AUTO) 3.4 X 10^3 (1.8-7.8)
[2021-02-10 15:28] LABS: ALANINE AMINOTRANSFERASE 20 U/L (0-55); ALKALINE PHOSPHATASE 78 U/L (40-136); BILIRUBIN,TOTAL 0.3 MG/DL (0.1-1.0); BUN/CREATININE RATIO 15; CALCIUM 9.4 MG/DL (8.5-10.1); CARBON DIOXIDE 26 MMOL/L (21-32); CHLORIDE 105 MMOL/L (98-107); CREATININE SERUM 0.85 MG/DL (0.60-1.30); GFR ESTIMATED > 60; GLUCOSE 108 MG/DL (70-105); POTASSIUM 4.5 MMOL/L (3.6-5.0); SODIUM 142 MMOL/L (135-145); TOTAL PROTEIN 6.8 GM/DL (6.4-8.2)
[2021-02-10 15:29] LABS: ALBUMIN 4.3 GM/DL (3.2-4.5)
[2021-02-10 15:54] VITALS: BP 125/65
[2021-02-10] MEDS ORDERED: POTA10TA PO (16:13)
[2021-02-10] MEDS ORDERED: MTP25TSR PO (16:13)
[2021-02-10] MEDS ORDERED: LISI20TA26 PO (16:13)
[2021-02-10] MEDS ORDERED: BUSP10TA95 PO (16:13)
[2021-02-10] MEDS ORDERED: QUET50TA22 PO (16:13)
[2021-02-10] MEDS ORDERED: SIMV20TA26 PO (16:13)
[2021-02-10] MEDS ORDERED: LEVO150T96 PO (16:13)
[2021-02-10] MEDS ORDERED: ESOM40CA52 PO (16:13)
[2021-02-10] MEDS ORDERED: DULO30CA49 PO (16:13)
[2021-02-10] MEDS ORDERED: DOXY100T2 PO (16:13)
[2021-02-10] MEDS ORDERED: METF-397 PO (16:13)
[2021-02-10] MEDS ORDERED: MONT10TA32 PO (16:13)
[2021-02-10] MEDS ORDERED: CYCL10TA9 PO (16:13)
[2021-02-10] MEDS ORDERED: CLON0.5T4 PO (16:13)
[2021-02-10] MEDS ORDERED: FEXO-46 PO (16:13)
[2021-02-10] MEDS ORDERED: BUPR150T14 PO (16:16)
== END 2021-02-10 15:48 | disposition home or self-care (01) ==
LOC: EDUNIT# 13:47 → ER FS 13:49
DX: R51.9 Headache, unspecified (principal); R00.2 Palpitations; G47.00 Insomnia, unspecified; M79.7 Fibromyalgia; F41.9 Anxiety disorder, unspecified; F32.9 Major depressive disorder, single episode, unspecified; Z86.19 Personal history of other infectious and parasitic diseases; Z88.5 Allergy status to narcotic agent; Z88.8 Allergy status to other drugs, medicaments and biological substances
CPT/HCPCS: 36415; 80053; 85025; 93005

== ENCOUNTER 2021-02-13 06:24 | Emergency (ER) | payer MEDICARE, MEDICAID ==
[~2021-02-13] VITALS: Ht 167.7 cm; Wt 88.4 kg
[~2021-02-13 06:24] MED LIST changes: +BUPR150T14 PO; +BUSP10TA95 PO; -CATHETER FLUSH 10 ML SYR IV PRN; +CLON0.5T4 PO; +CYCL10TA9 PO; +DOXY100T2 PO; +DULO30CA49 PO; +ESOM40CA52 PO; +FEXO-46 PO; +LEVO150T96 PO; +LISI20TA26 PO; +METF-397 PO; +MONT10TA32 PO; +MTP25TSR PO; +POTA10TA PO; +QUET50TA22 PO; -REGADENOSON 0.4 MG/5 ML SYR (LEXISCAN) IV ONE; +SIMV20TA26 PO
[2021-02-13] MEDS ORDERED: KETOROLAC 30 MG/ML VIAL IVP STA (06:40)
[2021-02-13] MEDS ORDERED: NS IV 1000 ML 1,000 ML IV STA (06:40)
--- NOTE | 2021-02-13 06:47 | ED General ---
General Chief Complaint: Back Problems Stated Complaint: BACK PAIN Source of Information: Patient, EMS, Old Records (MARICRUZ BUSTILLOS MD) History of Present Illness Date Seen by Provider: Feb 13, 2021 Time Seen by Provider: 06:24 Initial Comments 60-year-old female presenting with complaints of pain between her shoulder blades and anterior chest. She states that she got up earlier this morning when she could not sleep and was having pain. She has some shortness of breath with this. She denies any nausea or vomiting. She does feel like her heart is racing at times but has a history of tachycardia according to the patient. She has been having palpitations and was seen on 10 February 2021 here in the ED for palpitations and headache. This morning because her pain was so bad she had called EMS to transport her for being checked out. She was given 324 mg of aspirin by EMS. That has helped with her pain between her shoulder blades and her anterior chest pain is now at a 4 out of 10. She states it has been everywhere from sharp to a pressure to just a dull ache. She denies having the exact same pains in the past but has had chronic Lyme disease for over 26 years and states that she has had multiple medical issues related to that and atypical symptoms due to it. She had a single episode of cough and shortness of breath with wheezing shortly after the pain started this morning. She denied having any pain when she was seen on Tuesday. She has been having insomnia and they recently adjusted her Seroquel to help with however she feels like it is making the insomnia worse instead of better. She has an appointment to see Dr. Ochoa her primary care provider on Tuesday about the medications and insomnia. (MARICRUZ BUSTILLOS MD) Allergies and Home Medications Allergies Coded Allergies: iodine (Verified Allergy, Severe, BLISTERS, 05/20/19) codeine (Verified Adverse Reaction, Unknown, HALLUCINATIONS, 05/20/19) divalproex sodium (Verified Adverse Reaction, Unknown, HALLUCINATIONS, 05/20/19) Home Medications Bupropion HCl 150 Mg Tablet.er, 150 MG PO BID, (Reported) Buspirone HCl 10 Mg Tablet, 10 MG PO TID, (Reported) Clonazepam 0.5 Mg Tablet, 0.5 MG PO TID PRN for ANXIETY, (Reported) Cyclobenzaprine HCl 10 Mg Tablet, 10 MG PO TID, (Reported) Doxycycline Hyclate 100 Mg Tablet, 30 MG PO BID, (Reported) Duloxetine HCl 30 Mg Capsule.dr, 30 MG PO DAILY, (Reported) Esomeprazole Magnesium 40 Mg Capsule.dr, 40 MG PO DAILY, (Reported) Fexofenadine HCl 180 Mg Tablet, 180 MG PO DAILY, (Reported) Levothyroxine Sodium 150 Mcg Tablet, 150 MCG PO DAILY, (Reported) Lisinopril 20 Mg Tablet, 20 MG PO DAILY, (Reported) Metformin HCl 500 Mg Tablet, 500 MG PO DAILY, (Reported) Metoprolol Succinate 25 Mg Tab.er.24h, 25 MG PO DAILY, (Reported) Montelukast Sodium 10 Mg Tablet, 10 MG PO DAILY, (Reported) Potassium Chloride 10 Meq Tablet.er, 10 MEQ PO DAILY, (Reported) Quetiapine Fumarate 50 Mg Tablet, 50 MG PO DAILY, (Reported) Simvastatin 20 Mg Tablet, 20 MG PO DAILY, (Reported) Patient Home Medication List Home Medication List Reviewed: Yes (MARICRUZ BUSTILLOS MD) Review of Systems Review of Systems Constitutional: No chills, No diaphoresis, No dizziness, No fever, No malaise EENTM: no symptoms reported Respiratory: see HPI Cardiovascular: see HPI Gastrointestinal: no symptoms reported Genitourinary: no symptoms reported Musculoskeletal: see HPI, back pain (woke up with pain between her shoulder blades) Skin: no symptoms reported Psychiatric/Neurological: Anxiety, Tingling (left hand this am with her pain symptoms) Hematologic/Lymphatic: No Symptoms Reported Immunological/Allergic: no symptoms reported (MARICRUZ BUSTILLOS MD) Past Wzrespx-Gplhfb-Zhgfzz Hx Past Med/Social Hx: Reviewed Nursing Past Med/Soc Hx (MARICRUZ BUSTILLOS MD) Patient Social History Alcohol Beverage of Choice: Beer Drug of Choice: CBD GUMMIES 2nd Hand Smoke Exposure: No Recent Hopitalizations: No (MARICRUZ BUSTILLOS MD) Immunizations Up To Date Tetanus Booster (TDap): Unknown PED Vaccines UTD: Yes (MARICRUZ BUSTILLOS MD) Seasonal Allergies Seasonal Allergies: Yes (MARICRUZ BUSTILLOS MD) Past Medical History Surgeries: Yes (C1-C6 FUSED. 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 Sexually Transmitted Disease: No Genitourinary: No Gastrointestinal: Yes Chronic Constipation Musculoskeletal: Yes (BILATERAL CARPAL TUNNEL REPAIR) Arthritis, Fibromyalgia Endocrine: Yes (BORDERLINE DIABETES) Hypothyroidsim HEENT: No Cancer: No Psychosocial: Yes Anxiety, Depression Integumentary: No Blood Disorders: No (MARICRUZ BUSTILLOS MD) Physical Exam Vital Signs Vital Signs - First Documented 02/13/21 06:27 Temp 36.6 Pulse 100 Resp 14 B/P (MAP) 121/68 (85) Pulse Ox 99 O2 Delivery Room Air (MURDOCK,KOSTAS L DO) Vital Signs Capillary Refill : (MARICRUZ BUSTILLOS MD) Height, Weight, BMI Height: 5'6.00" Weight: 160lbs. oz. 72.804458ro; 31.00 BMI Method:Stated General Appearance: No Apparent Distress, WD/WN HEENT: PERRL/EOMI Respiratory: Lungs Clear, Normal Breath Sounds, No Accessory Muscle Use, No Respiratory Distress Cardiovascular: Regular Rate, Rhythm, No Edema, No JVD, No Murmur, Normal Peripheral Pulses Gastrointestinal: Normal Bowel Sounds, No Pulsatile Mass, Non Tender, Soft Rectal: Deferred Extremity: Normal Capillary Refill, No Pedal Edema Neurologic/Psychiatric: Alert, Oriented x3, before school II-XII Norm as Tested Skin: Normal Color, Warm/Dry (MARICRUZ BUSTILLOS MD) Progress/Results/Core Measures Suspected Sepsis SIRS Temperature: Pulse: Respiratory Rate: Laboratory Tests 02/13/21 06:37: White Blood Count 7.5 Blood Pressure / Mean: Laboratory Tests 02/13/21 06:37: Creatinine 0.98, INR Comment 0.9, Platelet Count 291, Total Bilirubin 0.2 (MARICRUZ BUSTILLOS MD) Results/Orders Lab Results Laboratory Tests Test 02/13/21 06:37 02/13/21 08:34 Range/Units White Blood Count 7.5 4.3-11.0 10^3/uL Red Blood Count 4.08 L 4.35-5.85 10^6/uL Hemoglobin 11.2 L 11.5-16.0 G/DL Hematocrit 35 35-52 % Mean Corpuscular Volume 85 80-99 FL Mean Corpuscular Hemoglobin 27 25-34 PG Mean Corpuscular Hemoglobin Concent 32 32-36 G/DL Red Cell Distribution Width 13.8 10.0-14.5 % Platelet Count 291 130-400 10^3/uL Mean Platelet Volume 9.9 7.4-10.4 FL Immature Granulocyte % (Auto) 0 % Neutrophils (%) (Auto) 39 L 42-75 % Lymphocytes (%) (Auto) 49 H 12-44 % Monocytes (%) (Auto) 8 0-12 % Eosinophils (%) (Auto) 3 0-10 % Basophils (%) (Auto) 0 0-10 % Neutrophils # (Auto) 2.9 1.8-7.8 X 10^3 Lymphocytes # (Auto) 3.7 1.0-4.0 X 10^3 Monocytes # (Auto) 0.6 0.0-1.0 X 10^3 Eosinophils # (Auto) 0.2 0.0-0.3 10^3/uL Basophils # (Auto) 0.0 0.0-0.1 10^3/uL Immature Granulocyte # (Auto) 0.0 0.0-0.1 10^3/uL Prothrombin Time 12.6 12.2-14.7 SEC INR Comment 0.9 0.8-1.4 Activated Partial Thromboplast Time 28 24-35 SEC Sodium Level 139 135-145 MMOL/L Potassium Level 4.3 3.6-5.0 MMOL/L Chloride Level 104 98-107 MMOL/L Carbon Dioxide Level 26 21-32 MMOL/L Anion Gap 9 5-14 MMOL/L Blood Urea Nitrogen 22 H 7-18 MG/DL Creatinine 0.98 0.60-1.30 MG/DL Estimat Glomerular Filtration Rate 58 BUN/Creatinine Ratio 22 Glucose Level 107 H 70-105 MG/DL Calcium Level 9.0 8.5-10.1 MG/DL Corrected Calcium 8.9 8.5-10.1 MG/DL Magnesium Level 1.7 1.6-2.4 MG/DL Total Bilirubin 0.2 0.1-1.0 MG/DL Aspartate Amino Transf (AST/SGOT) 21 5-34 U/L Alanine Aminotransferase (ALT/SGPT) 21 0-55 U/L Alkaline Phosphatase 77 40-136 U/L Troponin I < 0.30 < 0.30 <0.30 NG/ML Pro-B-Type Natriuretic Peptide 19.7 <75.0 PG/ML Total Protein 6.7 6.4-8.2 GM/DL Albumin 4.1 3.2-4.5 GM/DL Lipase 26 8-78 U/L (MATHIEUKOSTAS L DO) My Orders Orders - KOSTAS MURDOCK Troponin I Fs (02/13/21 08:31) (MATHIEUKOSTAS L DO) Vital Signs/I&O 02/13/21 06:27 Temp 36.6 Pulse 100 Resp 14 B/P (MAP) 121/68 (85) Pulse Ox 99 O2 Delivery Room Air (KOSTAS MURDOCK DO) Vital Signs/I&O Capillary Refill : (MARICRUZ BUSTILLOS MD) Progress Note : Progress Note obtain basic labs with ECG, CXR, Cardiac enzymes. For her residual / anterior chest pain will add on Toradol and IVF since she already had 324 mg of Aspirin by EMS. Place on cardiac corporate strategist since she reports intermittent fast heart rate and felt like heart fluttering off and on since Tuesday. Currently she is showing a sinus rhythm on telemetry without ectopy or ischemia. Electrocardiogram shows a sinus rhythm with heart rate in the 90s and appears similar to tracing from the as well as back in 2019 when she had a negative stress test and echocardiogram. Differential diagnosis would include musculoskeletal chest wall pain, acute coronary syndrome, myocardial infarction, pneumonia, pleuritic chest pain, anxiety, GERD with esophageal spasms. (MARICRUZ BUSTILLOS MD) Progress Note : Time: 09:11 Progress Note Patient's symptoms completely resolved with aspirin and Toradol. Patient symptoms were much more consistent with musculoskeletal type pain. Patient with negative troponin x2, negative EKG and negative labs. Patient reports she is "feeling a little loopy" from her Toradol shot. Discussed with her that that was nonnarcotic and that she did not receive any medication that should cause any loopy type side effects. Patient is otherwise stable and will be discharged home. She should follow-up with her primary care provider next week for continuation of care (KOSTAS MURDOCK DO) ECG Initial ECG Impression Date: Feb 13, 2021 Initial ECG Impression Time: 06:31 Initial ECG Rate: 93 Initial ECG Rhythm: Normal Sinus Initial ECG Comparisson: Unchanged Comment Normal sinus rhythm with a heart rate of 93 bpm. LA interval 149 ms. QT interval 340 ms with a QTc interval of 423 ms. There is no acute ST elevation. Appears similar to prior tracings in the system. (MARICRUZ BUSTILLOS MD) Diagnostic Imaging Diagonstic Imaging: Xray Plain Films/CT/US/NM/MRI: chest (MARICRUZ BUSTILLOS MD) Comments [facility], [place] NAME: [facility] REC#: [id number] PT STATUS: REG ER : 1960 PHYSICIAN: MARICRUZ BUSTILLOS MD ADMIT DATE: 02/13/21/ER FS Draft Date of Exam:02/13/21 CHEST 1 VIEW AP/PA ONLY INDICATION: Chest pain Portable chest 6:34 AM Heart size and pulmonary vascularity are normal. Lungs are clear. There are no effusions or pneumothoraces. IMPRESSION: Negative chest. Reviewed: Reviewed by Me, Reviewed/Discussed (KOSTAS MURDOCK DO) Transfer of Care Transfer of Care Time: 07:00 Care transferred to: Dr. Murdock at shift change (MARICRUZ BUSTILLOS MD) Departure Impression Primary Impression: Thoracic back sprain Qualified Codes: S23.9XXA - Sprain of unspecified parts of thorax, initial encounter Disposition: 01 HOME, SELF-CARE Condition: Stable Departure-Patient Inst. Referrals: DWAINE OCHOA MD (PCP/Family) Primary Care Physician Patient Instructions: Upper Back Pain (DC) Add. Discharge Instructions: Follow-up with your primary care provider next week for continuation of care and recheck of today's symptoms Tylenol or ibuprofen as needed for pain Return to the ER if develop worsening chest pain, shortness of breath or other concerns over the weekend All discharge instructions reviewed with patient and/or family. Voiced understanding. MARICRUZ BUSTILLOS MD Feb 13, 2021 06:47 KOSTAS MURDOCK DO Feb 13, 2021 07:24
--- NOTE | 2021-02-13 07:07 | Diagnostic Imaging Report ---
INDICATION: Chest pain Portable chest 6:34 AM Heart size and pulmonary vascularity are normal. Lungs are clear. There are no effusions or pneumothoraces. IMPRESSION: Negative chest. Dictated by: Dictated on workstation # [id number]
[2021-02-13 07:17] LABS: HEMATOCRIT 35 % (35-52); HEMOGLOBIN 11.2 G/DL (11.5-16.0); MEAN CORPUSCULAR HEMOGLOBIN 27 PG (25-34); MEAN CORPUSCULAR HGB CONC 32 G/DL (32-36); MEAN CORPUSCULAR VOLUME 85 FL (80-99); MEAN PLATELET VOLUME 9.9 FL (7.4-10.4); PLATELET COUNT 291 10^3/uL (130-400); WHITE BLOOD COUNT 7.5 10^3/uL (4.3-11.0)
[2021-02-13 07:18] LABS: BASOPHILS % (AUTO) 0 % (0-10); EOSINOPHILS # (AUTO) 0.2 10^3/uL (0.0-0.3); EOSINOPHILS % (AUTO) 3 % (0-10); LYMPHOCYTES # (AUTO) 3.7 X 10^3 (1.0-4.0); LYMPHOCYTES % (AUTO) 49 % (12-44); MONOCYTES # (AUTO) 0.6 X 10^3 (0.0-1.0); MONOCYTES % (AUTO) 8 % (0-12); NEUTROPHILS # (AUTO) 2.9 X 10^3 (1.8-7.8); NEUTROPHILS % (AUTO) 39 % (42-75)
[2021-02-13 07:30] LABS: INR 0.9 (0.8-1.4); PROTHROMBIN TIME PATIENT 12.6 SEC (12.2-14.7)
[2021-02-13 07:38] LABS: CREATININE SERUM 0.98 MG/DL (0.60-1.30); POTASSIUM 4.3 MMOL/L (3.6-5.0)
[2021-02-13 07:39] LABS: ALBUMIN 4.1 GM/DL (3.2-4.5); BILIRUBIN,TOTAL 0.2 MG/DL (0.1-1.0); MAGNESIUM 1.7 MG/DL (1.6-2.4); TOTAL PROTEIN 6.7 GM/DL (6.4-8.2)
[2021-02-13 09:25] VITALS: BP 97/60
== END 2021-02-13 09:30 | disposition home or self-care (01) ==
LOC: EDUNIT# 06:24 → ER FS 06:26
DX: S23.3XXA Sprain of ligaments of thoracic spine, initial encounter (principal); F41.9 Anxiety disorder, unspecified; F32.9 Major depressive disorder, single episode, unspecified; E03.9 Hypothyroidism, unspecified; Z91.041 Radiographic dye allergy status; Z88.5 Allergy status to narcotic agent; Z88.8 Allergy status to other drugs, medicaments and biological substances; Z79.890 Hormone replacement therapy; X58.XXXA Exposure to other specified factors, initial encounter
CPT/HCPCS: 36415; 71045; 80053; 83690; 83735; 83880; 84484; 85025; 85610; 85730; 93005; 93041

== ENCOUNTER → 2021-03-20 | Outpatient (CLI) | payer MEDICARE, MEDICAID | LOC: CARD 10:15 | PROVIDERS: ATTEND Internal Medicine Cardiovascular Disease | DX: I10 Essential (primary) hypertension (principal); I36.1 Nonrheumatic tricuspid (valve) insufficiency | CPT/HCPCS: 93306 ==

== ENCOUNTER 2021-04-07 10:54 | Emergency (ER) | payer MEDICARE, MEDICAID ==
[~2021-04-07] VITALS: Ht 167 cm; Wt 80.0 kg
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
[2021-04-07] MEDS ORDERED: KETOROLAC 30 MG/ML VIAL IM STA (11:17)
--- NOTE | 2021-04-07 11:54 | Diagnostic Imaging Report ---
PROCEDURE: CT head without contrast. TECHNIQUE: Multiple contiguous axial images were obtained through the brain without the use of intravenous contrast. Auto Exposure Controls were utilized during the CT exam to meet ALARA standards for radiation dose reduction. INDICATION: Trauma. COMPARISON: CT head without contrast 11/03/2020. FINDINGS: No intracranial hemorrhage, mass effect, hydrocephalus or extra-axial fluid collections. No CT evidence of territorial infarction. Osseous structures are intact. Visualized paranasal sinuses and mastoids are unremarkable. IMPRESSION: No acute intracranial CT findings. Dictated by: Dictated on workstation # [id number]
[2021-04-07 12:17] VITALS: BP 138/62
== END 2021-04-07 12:18 | disposition home or self-care (01) ==
LOC: EDUNIT# 10:54 → ER FS 10:56
DX: S00.03XA Contusion of scalp, initial encounter (principal); S09.90XA Unspecified injury of head, initial encounter; J45.909 Unspecified asthma, uncomplicated; E03.9 Hypothyroidism, unspecified; F41.9 Anxiety disorder, unspecified; F32.9 Major depressive disorder, single episode, unspecified; Z88.5 Allergy status to narcotic agent; Z91.041 Radiographic dye allergy status; Z88.8 Allergy status to other drugs, medicaments and biological substances; Z79.890 Hormone replacement therapy; Z79.899 Other long term (current) drug therapy; W22.8XXA Striking against or struck by other objects, initial encounter
CPT/HCPCS: 70450

== ENCOUNTER → 2021-04-07 | Outpatient (CLI) | payer MEDICARE, MEDICAID | LOC: LAB FS 10:50 | PROVIDERS: ATTEND Internal Medicine Gastroenterology | DX: Z01.812 Encounter for preprocedural laboratory examination (principal); Z20.822 Contact with and (suspected) exposure to COVID-19 | CPT/HCPCS: 87635 ==

== ENCOUNTER → 2021-04-22 | Outpatient (CLI) | payer MEDICARE, MEDICAID ==
[~2021-04-22] VITALS: Ht 167 cm; Wt 86.0 kg
[~2021-04-22] MED LIST changes: +REGADENOSON 0.4 MG/5 ML SYR (LEXISCAN) IV ONE
[2021-04-22] MEDS: CATHETER FLUSH 10 ML SYR IV PRN ×2 (12:25→13:47)
[2021-04-22 13:45] VITALS: BP 147/75
--- NOTE | 2021-04-22 16:16 | Cardiology Stress Test Report ---
Stress Test Report Date of Procedure/Referring: Date of Procedure: April 22, 2021 PCP Tanvir Kirby MD Admitting Physician Donnell Ochoa MD Indications: HTN Baseline Heart Rate: 94 Baseline Blood Pressure: Blood Pressure Systolic: 147 Blood Pressure Diastolic: 75 Baseline Vitals Vital Signs Date Time Temp Pulse Resp B/P (MAP) Pulse Ox O2 Delivery O2 Flow Rate FiO2 04/22/21 13:45 95 16 147/75 (99) 97 Room Air Baseline EKG: Baseline EKG: NSR Summary After explaining the procedure to the patient, she signed a consent and then brought to the stress nuclear laboratory. Patient received 0.4 mg Lexiscan for stress test, ECG, heart rate and blood pressure were monitored continuously. Resting and stress dose of radio tracer were injected, imaging was acquired and reviewed in short axis, horizontal long axis and vertical long axis views. TID: 0.87 SSS: 4 SDS: 2 EF: 69 1. Patient tolerated Lexiscan well 2. No significant ischemia or infarction on SPECT images 3. Normal left ventricular size, EF 69% TANVIR KIRBY MD April 22, 2021 16:16
== END ==
LOC: CARD 12:02
PROVIDERS: ATTEND Internal Medicine Cardiovascular Disease
DX: I10 Essential (primary) hypertension (principal); R07.9 Chest pain, unspecified; R00.2 Palpitations
CPT/HCPCS: 78452; 93017; A9502

== ENCOUNTER 2021-06-05 15:45 | Emergency (ER) | payer MEDICARE, MEDICAID ==
[~2021-06-05] VITALS: Ht 168 cm; Wt 88.0 kg
[~2021-06-05 15:45] MED LIST changes: -REGADENOSON 0.4 MG/5 ML SYR (LEXISCAN) IV ONE
[2021-06-05 15:58] LABS: BASOPHILS % (AUTO) 0 % (0-10); EOSINOPHILS # (AUTO) 0.2 10^3/uL (0.0-0.3); EOSINOPHILS % (AUTO) 2 % (0-10); HEMATOCRIT 39 % (35-52); HEMOGLOBIN 12.5 G/DL (11.5-16.0); LYMPHOCYTES # (AUTO) 3.5 X 10^3 (1.0-4.0); LYMPHOCYTES % (AUTO) 40 % (12-44); MEAN CORPUSCULAR HEMOGLOBIN 28 PG (25-34); MEAN CORPUSCULAR HGB CONC 33 G/DL (32-36); MEAN CORPUSCULAR VOLUME 87 FL (80-99); MEAN PLATELET VOLUME 9.5 FL (7.4-10.4); MONOCYTES # (AUTO) 0.5 X 10^3 (0.0-1.0); MONOCYTES % (AUTO) 6 % (0-12); NEUTROPHILS # (AUTO) 4.5 X 10^3 (1.8-7.8); NEUTROPHILS % (AUTO) 52 % (42-75); PLATELET COUNT 350 10^3/uL (130-400); WHITE BLOOD COUNT 8.7 10^3/uL (4.3-11.0)
[2021-06-05 16:17] LABS: INR 0.9 (0.8-1.4); PROTHROMBIN TIME PATIENT 12.3 SEC (12.2-14.7)
[2021-06-05 16:18] LABS: ALANINE AMINOTRANSFERASE 26 U/L (0-55); ALKALINE PHOSPHATASE 89 U/L (40-136); BILIRUBIN,TOTAL 0.3 MG/DL (0.1-1.0); BUN/CREATININE RATIO 22; CALCIUM 9.5 MG/DL (8.5-10.1); CARBON DIOXIDE 23 MMOL/L (21-32); CHLORIDE 103 MMOL/L (98-107); CREATININE SERUM 0.74 MG/DL (0.60-1.30); GFR ESTIMATED > 60; GLUCOSE 117 MG/DL (70-105); MAGNESIUM 1.8 MG/DL (1.6-2.4); POTASSIUM 4.5 MMOL/L (3.6-5.0); SODIUM 139 MMOL/L (135-145); TOTAL PROTEIN 7.4 GM/DL (6.4-8.2)
[2021-06-05 16:19] LABS: ALBUMIN 4.6 GM/DL (3.2-4.5); LIPASE 22 U/L (8-78)
--- NOTE | 2021-06-05 16:29 | ED Chest Pain ---
General Chief Complaint: Chest Pain Stated Complaint: SOA,CHEST PAIN Nursing Triage Note: Pt ambulatory upon arrival to ED. Reports that she woke up this morning with chest pain et feeling short of breath. Pt states that the pain is new, substernal, aggravating by breathing et activity. Pt states that she checked her SpO2 with a home device that she purchased of of [employer]. Pt states that he SpO2 was, as low as, 79% at home. Airway intact. Respirations even et unlabored, skin warm, dry, appropriate for ethnicity. No sx of acute distress. Source: patient History of Present Illness Date Seen by Provider: Jun 05, 2021 Time Seen by Provider: 15:49 Initial Comments 60-year-old female presenting with complaints of substernal chest pain since she woke up early in the morning. She states it has been present all day. She tried using the pulse ox that she bought off of [employer] and it was reading anywhere from 79-90 for her oxygen saturation. She was having increased shortness of breath compared to baseline. She has a history of pulmonary hypertension, high blood pressure, esophageal stricture, dysphagia, Lyme disease, fibromyalgia. When her oxygen saturation was reading low and she was having pain that was continuing all day she called her cardiology and her primary care providers. They were both out of the office today so she came to the emergency department to be evaluated. She denies having any fever, chills, nausea, vomiting, abdominal pain, increase in sputum production. Severity/Quality: aching Location: substernal Radiation: no radiation Activities at Onset: sleep Prior CP/Workup: echocardiography, stress test ASA po COLLECTIONS ATTORNEY: No NTG SL COLLECTIONS ATTORNEY: No Associated Symptoms: No abdominal pain, No back pain, No diaphoresis, No dizziness, No edema, No fatigue, No fever/chills, No headache, No heartburn, No nausea/vomiting, No rash; shortness of breath (chronic); No syncope Allergies and Home Medications Allergies Coded Allergies: iodine (Verified Allergy, Severe, BLISTERS, 05/20/19) codeine (Verified Adverse Reaction, Unknown, HALLUCINATIONS, 05/20/19) divalproex sodium (Verified Adverse Reaction, Unknown, HALLUCINATIONS, 05/20/19) Home Medications Bupropion HCl 150 Mg Tablet.er, 150 MG PO BID, (Reported) Buspirone HCl 10 Mg Tablet, 10 MG PO TID, (Reported) Clonazepam 0.5 Mg Tablet, 0.5 MG PO TID PRN for ANXIETY, (Reported) Cyclobenzaprine HCl 10 Mg Tablet, 10 MG PO TID, (Reported) Doxycycline Hyclate 100 Mg Tablet, 30 MG PO BID, (Reported) Duloxetine HCl 30 Mg Capsule.dr, 30 MG PO DAILY, (Reported) Esomeprazole Magnesium 40 Mg Capsule.dr, 40 MG PO DAILY, (Reported) Fexofenadine HCl 180 Mg Tablet, 180 MG PO DAILY, (Reported) Levothyroxine Sodium 150 Mcg Tablet, 150 MCG PO DAILY, (Reported) Lisinopril 20 Mg Tablet, 20 MG PO DAILY, (Reported) Metformin HCl 500 Mg Tablet, 500 MG PO DAILY, (Reported) Metoprolol Succinate 25 Mg Tab.er.24h, 25 MG PO DAILY, (Reported) Montelukast Sodium 10 Mg Tablet, 10 MG PO DAILY, (Reported) Potassium Chloride 10 Meq Tablet.er, 10 MEQ PO DAILY, (Reported) Quetiapine Fumarate 50 Mg Tablet, 50 MG PO DAILY, (Reported) Simvastatin 20 Mg Tablet, 20 MG PO DAILY, (Reported) Patient Home Medication List Home Medication List Reviewed: Yes Review of Systems Review of Systems Constitutional: see HPI EENTM: No Symptoms Reported Respiratory: See HPI Cardiovascular: See HPI Gastrointestinal: See HPI Genitourinary: No Symptoms Reported Musculoskeletal: see HPI, muscle pain (chronic due to fibromyalgia) Skin: No rash Psychiatric/Neurological: Anxiety Past Qemazmi-Yarccg-Ycuzbk Hx Immunizations Up To Date Tetanus Booster (TDap): Unknown PED Vaccines UTD: Yes Seasonal Allergies Seasonal Allergies: Yes Past Medical History Surgeries: Yes (C1-C6 FUSED. 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 oz. 72.602157ex; 31.00 BMI Method:Stated General Appearance: WD/WN, Anxious HEENT: PERRL/EOMI, Pharynx Normal Respiratory: Chest Non Tender, No Accessory Muscle Use, No Respiratory Distress, Decreased Breath Sounds Cardiovascular: Regular Rate, Rhythm, Normal Peripheral Pulses Gastrointestinal: Normal Bowel Sounds, No Pulsatile Mass, Non Tender, Soft Rectal: Deferred Extremity: Normal Capillary Refill, No Pedal Edema Neurologic/Psychiatric: Alert, Oriented x3, global risk management director II-XII Norm as Tested Skin: Normal Color, Warm/Dry Progress/Results/Core Measures Results/Orders Lab Results Laboratory Tests Test 06/05/21 15:52 Range/Units White Blood Count 8.7 4.3-11.0 10^3/uL Red Blood Count 4.42 4.35-5.85 10^6/uL Hemoglobin 12.5 11.5-16.0 G/DL Hematocrit 39 35-52 % Mean Corpuscular Volume 87 80-99 FL Mean Corpuscular Hemoglobin 28 25-34 PG Mean Corpuscular Hemoglobin Concent 33 32-36 G/DL Red Cell Distribution Width 14.0 10.0-14.5 % Platelet Count 350 130-400 10^3/uL Mean Platelet Volume 9.5 7.4-10.4 FL Neutrophils (%) (Auto) 52 42-75 % Lymphocytes (%) (Auto) 40 12-44 % Monocytes (%) (Auto) 6 0-12 % Eosinophils (%) (Auto) 2 0-10 % Basophils (%) (Auto) 0 0-10 % Neutrophils # (Auto) 4.5 1.8-7.8 X 10^3 Lymphocytes # (Auto) 3.5 1.0-4.0 X 10^3 Monocytes # (Auto) 0.5 0.0-1.0 X 10^3 Eosinophils # (Auto) 0.2 0.0-0.3 10^3/uL Basophils # (Auto) 0.0 0.0-0.1 10^3/uL Prothrombin Time 12.3 12.2-14.7 SEC INR Comment 0.9 0.8-1.4 Activated Partial Thromboplast Time 23 L 24-35 SEC Sodium Level 139 135-145 MMOL/L Potassium Level 4.5 3.6-5.0 MMOL/L Chloride Level 103 98-107 MMOL/L Carbon Dioxide Level 23 21-32 MMOL/L Anion Gap 13 5-14 MMOL/L Blood Urea Nitrogen 16 7-18 MG/DL Creatinine 0.74 0.60-1.30 MG/DL Estimat Glomerular Filtration Rate > 60 BUN/Creatinine Ratio 22 Glucose Level 117 H 70-105 MG/DL Calcium Level 9.5 8.5-10.1 MG/DL Corrected Calcium 8.5-10.1 MG/DL Magnesium Level 1.8 1.6-2.4 MG/DL Total Bilirubin 0.3 0.1-1.0 MG/DL Aspartate Amino Transf (AST/SGOT) 25 5-34 U/L Alanine Aminotransferase (ALT/SGPT) 26 0-55 U/L Alkaline Phosphatase 89 40-136 U/L Troponin I < 0.30 <0.30 NG/ML Pro-B-Type Natriuretic Peptide 19.2 <75.0 PG/ML Total Protein 7.4 6.4-8.2 GM/DL Albumin 4.6 H 3.2-4.5 GM/DL Lipase 22 8-78 U/L My Orders Orders - MARICRUZ BUSTILLOS MD Cbc With Automated Diff (06/05/21 15:49) Magnesium (06/05/21 15:49) Chest 1 View Ap/Pa Only (06/05/21 15:49) Ekg Tracing (06/05/21 15:49) Comprehensive Metabolic Panel (06/05/21 15:49) Protime With Inr (06/05/21 15:49) Partial Thromboplastin Time (06/05/21 15:49) O2 (06/05/21 15:49) Monitor-Rhythm Ecg Trace Only (06/05/21 15:49) Ed Iv/Invasive Line Start (06/05/21 15:49) Lipase (06/05/21 15:49) Troponin I Fs (06/05/21 15:49) Probnp Fs (06/05/21 15:49) Ua Culture If Indicated (06/05/21 15:49) Lidocaine 2% Viscous 15 Ml (Xylocaine Vi (06/05/21 16:30) Antacid Suspension (Mylanta Suspension (06/05/21 16:30) Medications Given in ED Current Medications Medications Dose Ordered Sig/Erika Route Start Time Stop Time Status Last Admin Dose Admin Al Hydrox/Mg Hydrox/Simethicone 30 ml ONCE ONCE PO 06/05/21 16:30 06/05/21 16:31 DC 06/05/21 16:36 30 ML Lidocaine HCl 15 ml ONCE ONCE PO 06/05/21 16:30 06/05/21 16:31 DC 06/05/21 16:36 15 ML Vital Signs/I&O 06/05/21 06/05/21 06/05/21 06/05/21 15:50 16:00 16:00 16:30 Temp 37.0 Pulse 89 97 Resp 13 18 B/P (MAP) 147/71 (96) 150/72 (98) Pulse Ox 98 98 98 O2 Delivery Room Air Room Air Room Air Room Air 06/05/21 06/05/21 17:19 17:20 Temp 37.0 37.0 Pulse 84 84 Resp 15 15 B/P (MAP) 139/75 (96) 139/75 Pulse Ox 98 98 O2 Delivery Room Air Room Air Blood Pressure Mean: 96 Progress Progress Note #1: Progress Note Check electrocardiogram and labs as well as chest x-ray. Since her pain has been going on for over 6 hours a single troponin should be sufficient if this is cardiac in nature. Her electrocardiogram does not demonstrate any acute ST elevation or ischemic changes. We will try a GI cocktail in case this might be related to her esophageal stricture and may be some spasms. Progress Note #2: Progress Note Labs are all stable without acute significant malady. Her cardiac enzymes are negative for acute coronary syndrome. Her chest x-ray does not demonstrate any acute process. Patient's pain was slightly improved after GI cocktail. When comparing her O2 sat probe that she got from [employer] to our equipment here at the emergency department it was discovered that she was reading her heart rate as her O2 sat. Advised patient of the correct way to use the O2 sat probe that she has. Encouraged follow-up and return precautions with the clinic. Initial ECG Impression Date: Jun 05, 2021 Initial ECG Impression Time: 15:51 Initial ECG Rate: 91 Initial ECG Rhythm: Normal Sinus Initial ECG Comparisson: No Previous ECG Available Comment Normal sinus rhythm without ST elevation and has heart beat of 91 bpm. PA interval of 139 ms. QT interval 337 ms with a QTC of 450 ms. No prior tracing available for comparison. Diagnostic Imaging Diagonstic Imaging: Xray Plain Films/CT/US/NM/MRI: chest Comments NAME: [facility] REC#: [id number] PT STATUS: REG ER : 1960 PHYSICIAN: MARICRUZ BUSTILLOS MD ADMIT DATE: 06/05/21/ER FS Draft Date of Exam:06/05/21 CHEST 1 VIEW AP/PA ONLY INDICATION: Chest pain. EXAMINATION: Portable chest at 4:12 p.m. FINDINGS: Heart size and pulmonary vascularity are normal. Lungs are clear. There is no effusion or pneumothorax. IMPRESSION: Negative chest. Dictated on workstation # [id number] Dict: 06/05/21 1632 Trans: 06/05/21 1634 [facility] [id number] Interpreted by: JOSE G QUIJANO MD Electronically signed by: Reviewed: Reviewed by Me Departure Impression Primary Impression: Substernal chest pain Disposition: 01 HOME, SELF-CARE Condition: Stable Departure-Patient Inst. Decision time for Depature: 17:14 Referrals: DWAINE HOFF MD (PCP/Family) Primary Care Physician Patient Instructions: Chest Pain, Adult ED Add. Discharge Instructions: The blood work, Electrocardiogram and chest xray all looked stable and do not show acute damage or reason for your pain. This might be due to spasms of your esophagus, inflammation of your lungs or spasms and pain in chest wall. Check back with clinic for continued concerns/problems. Try taking an extra dose of Benadryl 25 or 50 mg in the evenings for next few nights to help with allergy and inflammation All discharge instructions reviewed with patient and/or family. Voiced understanding. MARICRUZ BUSTILLOS MD Jun 05, 2021 16:29
[2021-06-05] MEDS ORDERED: LIDOCAINE 2% VISCOUS 15 ML UDC PO ONE (16:30)
[2021-06-05] MEDS ORDERED: ANTACID SUSP 30 ML UDC (MYLANTA) PO ONE (16:30)
--- NOTE | 2021-06-05 16:34 | Diagnostic Imaging Report ---
INDICATION: Chest pain. EXAMINATION: Portable chest at 4:12 p.m. FINDINGS: Heart size and pulmonary vascularity are normal. Lungs are clear. There is no effusion or pneumothorax. IMPRESSION: Negative chest. Dictated by: Dictated on workstation # [id number]
[2021-06-05 17:20] VITALS: BP 139/75
== END 2021-06-05 17:25 | disposition home or self-care (01) ==
LOC: EDUNIT# 15:45 → ER FS 15:46
DX: R07.2 Precordial pain (principal); J45.909 Unspecified asthma, uncomplicated; E03.9 Hypothyroidism, unspecified; F41.9 Anxiety disorder, unspecified; F32.9 Major depressive disorder, single episode, unspecified; Z79.890 Hormone replacement therapy
CPT/HCPCS: 71045; 80053; 83690; 83735; 83880; 84484; 85610; 85730; 93041

== ENCOUNTER 2021-06-18 11:45 | Emergency (ER) | payer MEDICARE, MEDICAID ==
[~2021-06-18] VITALS: Ht 167.7 cm; Wt 88.5 kg
[2021-06-18] MEDS ORDERED: LORazepam INJ 2 MG/ML (ATIVAN) VIAL IVP ONE (12:00)
[2021-06-18 12:10] LABS: HEMATOCRIT 40 % (35-52); HEMOGLOBIN 13.1 G/DL (11.5-16.0); MEAN CORPUSCULAR HEMOGLOBIN 28 PG (25-34); MEAN CORPUSCULAR HGB CONC 33 G/DL (32-36); MEAN CORPUSCULAR VOLUME 86 FL (80-99); MEAN PLATELET VOLUME 9.5 FL (7.4-10.4); PLATELET COUNT 344 10^3/uL (130-400); WHITE BLOOD COUNT 8.1 10^3/uL (4.3-11.0)
[2021-06-18 12:11] LABS: BASOPHILS # (AUTO) 0.1 10^3/uL (0.0-0.1); BASOPHILS % (AUTO) 1 % (0-10); EOSINOPHILS # (AUTO) 0.1 10^3/uL (0.0-0.3); EOSINOPHILS % (AUTO) 2 % (0-10); LYMPHOCYTES # (AUTO) 3.3 X 10^3 (1.0-4.0); LYMPHOCYTES % (AUTO) 40 % (12-44); MONOCYTES # (AUTO) 0.6 X 10^3 (0.0-1.0); MONOCYTES % (AUTO) 7 % (0-12); NEUTROPHILS # (AUTO) 4.1 X 10^3 (1.8-7.8); NEUTROPHILS % (AUTO) 51 % (42-75)
--- NOTE | 2021-06-18 12:14 | Diagnostic Imaging Report ---
Indication: Tachycardia, chest pain. Compared 06/05/2021. Findings: Lungs clear. No failure, effusion or pneumothorax. Heart size normal. Cardiomediastinal and hilar contours normal. No free air beneath the diaphragms. Impression: Stable normal frontal chest x-ray. Dictated by: Dictated on workstation # [id number]
[2021-06-18 12:32] LABS: BUN/CREATININE RATIO 19; CARBON DIOXIDE 23 MMOL/L (21-32); CHLORIDE 103 MMOL/L (98-107); GFR ESTIMATED 64; POTASSIUM 4.2 MMOL/L (3.6-5.0); SODIUM 140 MMOL/L (135-145)
[2021-06-18 12:33] LABS: ALANINE AMINOTRANSFERASE 34 U/L (0-55); ALKALINE PHOSPHATASE 98 U/L (40-136); BILIRUBIN,TOTAL 0.3 MG/DL (0.1-1.0); CALCIUM 10.1 MG/DL (8.5-10.1); GLUCOSE 127 MG/DL (70-105)
[2021-06-18 12:34] LABS: ALBUMIN 4.8 GM/DL (3.2-4.5)
[2021-06-18] MEDS ORDERED: IOHEXOL 350 MG/ML 100 ML (OMNIPAQUE 350) VIAL IV ONE (13:00)
[2021-06-18] MEDS ORDERED: NS IV 1000 ML 1,000 ML IV SCH (13:00)
[2021-06-18] MEDS ORDERED: NS 100 ML (IVPB) BAG IV ONE (13:00)
[2021-06-18] MEDS ORDERED: HOLD METFORMIN - RECEIVED CONTRAST 20 ML VIAL IV SCH (13:00)
[2021-06-18] MEDS ORDERED: methylPREDNISolone 125 MG (Solu-MEDROL) VIAL IVP ONE (13:00)
[2021-06-18] MEDS ORDERED: diphenhydrAMINE 50 MG/ML INJ (BENADRYL) IVP ONE (13:00)
[2021-06-18] MEDS ORDERED: CATHETER FLUSH 10 ML SYR IV PRN (13:00)
--- NOTE | 2021-06-18 13:47 | Diagnostic Imaging Report ---
PROCEDURE: CT angiography of the chest with contrast. TECHNIQUE: Multiple contiguous axial images were obtained through the chest after uneventful bolus administration of intravenous contrast. 3D reconstructed CTA MIP acquisitions were also performed. Auto Exposure Controls were utilized during the CT exam to meet ALARA standards for radiation dose reduction. DATE: June 18, 2021. COMPARISON: Chest radiograph June 18, 2021. INDICATION: 60-year-old female, chest pain and tachycardia. Elevated D-dimer. FINDINGS: There is a 4 mm noncalcified right lower lobe pulmonary nodule on axial image 129. There is no lung mass. There is no additional focal airspace consolidation. There is no pneumothorax. There is no pleural effusion. The central airways are patent. There is no identified pulmonary embolus. The main pulmonary arteries normal in caliber. The heart is not enlarged. There is no pericardial effusion. There is no identified abnormally enlarged mediastinal, hilar, or axillary lymph node meeting CT size criteria for adenopathy. The patient is status post cholecystectomy. There is nonspecific diffuse wall thickening of the stomach. There is no identified acute bony abnormality. There are degenerative changes of the spine. There is a sclerotic lesion of the T9 vertebral body anteriorly within internal attenuation value of 1153 Hounsfield units. This is likely a benign bone island. IMPRESSION: CT CHEST. 1. Diffuse wall thickening of the stomach which may reflect a nonspecific gastritis. Malignancy is also considered. Recommend correlation clinically and potential further evaluation with upper endoscopy. 2. 4 mm noncalcified right lower lobe pulmonary nodule. 3. No acute cardiopulmonary abnormality. Dictated by: Dictated on workstation # [id number]
[2021-06-18] MEDS ORDERED: FAMOTIDINE 20MG/2ML IV (PEPCID) IVP ONE (14:15)
[2021-06-18] MEDS ORDERED: ANTACID SUSP 30 ML UDC (MYLANTA) PO ONE (14:15)
--- NOTE | 2021-06-18 14:26 | ED Chest Pain ---
General Chief Complaint: Cardiac/General Problems Stated Complaint: CHEST PAIN Nursing Triage Note: PT ARRIVED BY PRIVATE VEHICLE WITH CHIEF COMPLAINT OF CHEST PAIN. PT WAS ALERT, ORIENTED AND AMBULATORY TO ROOM1 WHERE VITAL SIGNS WERE DONE, HOOKED UP TO DEHYDRATOR, EKG WAS COMPLETED, AND IV WAS STARTED WITH BLOOD DRAW. PT STATED 30-45 MINUTES PRIOR WHEN SHE WAS AT [facility] AT THE PHARMACY HER CHEST PAIN STARTED. SHE CHECKED HER HEART RATE/PULSE TWICE WHILE THERE AND IT WAS READING AROUND 144. PT'S UNDERWRITING CONSULTANT IS DR. HUNT AND PCP IS DR. HOFF. PT HAS RECENTLY HAD EGD, SCOPE FOR ESOPHAGUS AND STRESS TEST DONE. PT IS COMPLAINING OF CHEST PAIN UNDERNEATH THE LEFT BREAST AND ON TOP OF THE LEFT BREAST. PT HAS HISTORY OF TACHYCARDIA. REPORT WAS GIVEN TO PROVIDER. Source: patient History of Present Illness Date Seen by Provider: Jun 18, 2021 Time Seen by Provider: 12:00 Initial Comments Patient is a 60-year-old female with history of esophageal dysmotility, gastritis, chronic Lyme disease, anxiety and tachyarrhythmia who presents with chest pain described as dull with palpitations located in the substernal region starting 45 minutes prior to ED arrival. Pain is nonradiating and nonmigratory. Patient states she was walking when her chest pain began. She then checked her pulse level which was in the 120s prompting her visit to the ED. She denies nausea sweats vomiting or abdominal pain. She denies leg pain or swelling., Patient has had similar episodes. She has had extensive cardiac and GI work-up including a negative nuclear stress test and EGD 3 months ago, had a swallow study yesterday. She is compliant with all her medications which includes Nexium twice a day. She acknowledges feeling anxious, but denies any other symptoms or complaints at this time.. Timing/Duration: 4-6 hours Severity/Quality: moderate, dull Location: substernal Radiation: no radiation Activities at Onset: none Prior CP/Workup: cardiolye scan Modifying Factors: improves with other ASA po ELECTRONICS PRODUCTION SUPERVISOR: No NTG SL ELECTRONICS PRODUCTION SUPERVISOR: No Associated Symptoms: heartburn Allergies and Home Medications Allergies Coded Allergies: iodine (Verified Allergy, Severe, BLISTERS, 05/20/19) codeine (Verified Adverse Reaction, Unknown, HALLUCINATIONS, 05/20/19) divalproex sodium (Verified Adverse Reaction, Unknown, HALLUCINATIONS, 05/20/19) Home Medications Bupropion HCl 150 Mg Tablet.er, 150 MG PO BID, (Reported) Buspirone HCl 10 Mg Tablet, 10 MG PO TID, (Reported) Clonazepam 0.5 Mg Tablet, 0.5 MG PO TID PRN for ANXIETY, (Reported) Cyclobenzaprine HCl 10 Mg Tablet, 10 MG PO TID, (Reported) Doxycycline Hyclate 100 Mg Tablet, 30 MG PO BID, (Reported) Duloxetine HCl 30 Mg Capsule.dr, 30 MG PO DAILY, (Reported) Esomeprazole Magnesium 40 Mg Capsule.dr, 40 MG PO DAILY, (Reported) Fexofenadine HCl 180 Mg Tablet, 180 MG PO DAILY, (Reported) Levothyroxine Sodium 150 Mcg Tablet, 150 MCG PO DAILY, (Reported) Lisinopril 20 Mg Tablet, 20 MG PO DAILY, (Reported) Metformin HCl 500 Mg Tablet, 500 MG PO DAILY, (Reported) Metoprolol Succinate 25 Mg Tab.er.24h, 25 MG PO DAILY, (Reported) Montelukast Sodium 10 Mg Tablet, 10 MG PO DAILY, (Reported) Potassium Chloride 10 Meq Tablet.er, 10 MEQ PO DAILY, (Reported) Quetiapine Fumarate 50 Mg Tablet, 50 MG PO DAILY, (Reported) Simvastatin 20 Mg Tablet, 20 MG PO DAILY, (Reported) Patient Home Medication List Home Medication List Reviewed: Yes Review of Systems Review of Systems Constitutional: see HPI EENTM: See HPI Respiratory: See HPI Cardiovascular: See HPI Genitourinary: See HPI Musculoskeletal: see HPI Skin: see HPI Psychiatric/Neurological: See HPI Endocrine: No Symptoms Reported Hematologic/Lymphatic: See HPI All Other Systems Reviewed Negative Unless Noted: Yes Past Cuttbco-Ucqnfj-Gyodox Hx Patient Social History Tobacco Use?: Yes Smoking Status: Never a Smoker Use of E-Cig and/or Vaping Josemanuel: Never a User Substance use?: No Alcohol Use?: No Pt feels they are or have been: No Immunizations Up To Date Tetanus Booster (TDap): Unknown PED Vaccines UTD: Yes Seasonal Allergies Seasonal Allergies: Yes Past Medical History Surgery/Hospitalization HX: EGD in March with biopsy, esophagus recently stretched. Surgeries: Yes (C1-C6 FUSED. 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 oz. 72.581274bl; 31.00 BMI Method:Stated General Appearance: WD/WN, Anxious HEENT: PERRL/EOMI, Normal ENT Inspection, Pharynx Normal Neck: Full Range of Motion, Non Tender, Supple Respiratory: Lungs Clear Cardiovascular: No Edema, Tachycardia Gastrointestinal: Soft, Tenderness (Epigastric) Neurologic/Psychiatric: Alert, Oriented x3 Skin: Normal Color Lymphatic: No Adenopathy Focused Exam Sepsis Stage: Ruled Out Progress/Results/Core Measures Results/Orders Lab Results Laboratory Tests Test 06/18/21 11:54 Range/Units White Blood Count 8.1 4.3-11.0 10^3/uL Red Blood Count 4.62 4.35-5.85 10^6/uL Hemoglobin 13.1 11.5-16.0 G/DL Hematocrit 40 35-52 % Mean Corpuscular Volume 86 80-99 FL Mean Corpuscular Hemoglobin 28 25-34 PG Mean Corpuscular Hemoglobin Concent 33 32-36 G/DL Red Cell Distribution Width 13.6 10.0-14.5 % Platelet Count 344 130-400 10^3/uL Mean Platelet Volume 9.5 7.4-10.4 FL Immature Granulocyte % (Auto) 0 % Neutrophils (%) (Auto) 51 42-75 % Lymphocytes (%) (Auto) 40 12-44 % Monocytes (%) (Auto) 7 0-12 % Eosinophils (%) (Auto) 2 0-10 % Basophils (%) (Auto) 1 0-10 % Neutrophils # (Auto) 4.1 1.8-7.8 X 10^3 Lymphocytes # (Auto) 3.3 1.0-4.0 X 10^3 Monocytes # (Auto) 0.6 0.0-1.0 X 10^3 Eosinophils # (Auto) 0.1 0.0-0.3 10^3/uL Basophils # (Auto) 0.1 0.0-0.1 10^3/uL Immature Granulocyte # (Auto) 0.0 0.0-0.1 10^3/uL D-Dimer 0.82 H 0.00-0.49 UG/ML Sodium Level 140 135-145 MMOL/L Potassium Level 4.2 3.6-5.0 MMOL/L Chloride Level 103 98-107 MMOL/L Carbon Dioxide Level 23 21-32 MMOL/L Anion Gap 14 5-14 MMOL/L Blood Urea Nitrogen 17 7-18 MG/DL Creatinine 0.90 0.60-1.30 MG/DL Estimat Glomerular Filtration Rate 64 BUN/Creatinine Ratio 19 Glucose Level 127 H 70-105 MG/DL Calcium Level 10.1 8.5-10.1 MG/DL Corrected Calcium 8.5-10.1 MG/DL Magnesium Level 1.8 1.6-2.4 MG/DL Total Bilirubin 0.3 0.1-1.0 MG/DL Aspartate Amino Transf (AST/SGOT) 28 5-34 U/L Alanine Aminotransferase (ALT/SGPT) 34 0-55 U/L Alkaline Phosphatase 98 40-136 U/L Troponin I < 0.30 <0.30 NG/ML Total Protein 8.0 6.4-8.2 GM/DL Albumin 4.8 H 3.2-4.5 GM/DL My Orders Orders - ETHAN RAI DO Cbc With Automated Diff (06/18/21 11:59) Comprehensive Metabolic Panel (06/18/21 11:59) Troponin I Fs (06/18/21 11:59) Ekg-Prn For Chest Pain Or Rhyt (06/18/21 11:59) Chest 1 View Ap/Pa Only (06/18/21 11:59) Magnesium (06/18/21 12:00) Fibrin Degradation Products (06/18/21 12:00) Lorazepam Injection (Ativan Injection) (06/18/21 12:00) Ct Angio Chest W (06/18/21 12:48) Ns Iv 1000 Ml (Sodium Chloride 0.9%) (06/18/21 13:00) Diphenhydramine Injection (Benadryl Inje (06/18/21 13:00) Methylprednisolone Sod Succ (Solu-Medrol (06/18/21 13:00) Iohexol Injection (Omnipaque 350 Mg/Ml 1 (06/18/21 13:00) Received Contrast (Hold Metformin- Contr (06/18/21 13:00) Sodium Chloride Flush (Catheter Flush Sy (06/18/21 13:00) Ns (Ivpb) (Sodium Chloride 0.9% Ivpb Bag (06/18/21 13:00) Thyroid Stimulating Hormone (06/18/21 13:15) Famotidine Injection (Pepcid Injection) (06/18/21 14:15) Antacid Suspension (Mylanta Suspension (06/18/21 14:15) Medications Given in ED Current Medications Medications Dose Ordered Sig/Erika Route Start Time Stop Time Status Last Admin Dose Admin Al Hydrox/Mg Hydrox/Simethicone 30 ml ONCE ONCE PO 06/18/21 14:15 06/18/21 14:16 DC 06/18/21 14:15 30 ML Diphenhydramine HCl 50 mg ONCE ONCE IVP 06/18/21 13:00 06/18/21 13:01 DC 06/18/21 12:56 50 MG Famotidine 20 mg ONCE ONCE IVP 06/18/21 14:15 06/18/21 14:16 DC 06/18/21 14:15 20 MG Iohexol 100 ml ONCE ONCE IV 06/18/21 13:00 06/18/21 13:01 DC 06/18/21 13:39 100 ML Lorazepam 1 mg ONCE ONCE IVP 06/18/21 12:00 06/18/21 12:05 DC 06/18/21 12:14 1 MG Methylprednisolone Sodium Succinate 125 mg ONCE ONCE IVP 06/18/21 13:00 06/18/21 13:01 DC 06/18/21 12:56 125 MG Sodium Chloride 10 ml NEEDED PRN IV 06/18/21 13:00 06/18/21 13:39 10 ML Sodium Chloride 100 ml ONCE ONCE IV 06/18/21 13:00 06/18/21 13:01 DC 06/18/21 13:39 100 ML Vital Signs/I&O 06/18/21 11:48 Temp 36.7 Pulse 133 Resp 14 B/P (MAP) 144/79 (100) Pulse Ox 98 O2 Delivery Room Air Blood Pressure Mean: 100 Departure Communication (Admissions) EKG: Sinus tachycardia. No acute ST-T wave elevation Chest x-ray: No acute cardiopulmonary disease. CTA chest: No PE, inflamed stomach Chest pain, tachyarrhythmia improved with IV fluids and Ativan. Troponin negative. EKG nonspecific. Given patient's recent negative nuclear stress test and abnormal CT finding of gastric thickening a cardiac cause does not appear to be unlikely at this time. Pepcid and Maalox given. Recommend watchful waiting supportive care with PCP/GI follow-up. Return precautions reviewed. Patient verbalizes understanding agreement discharge instructions prior to departure Impression Primary Impression: Chest pain Additional Impressions: Palpitations Anxiety state Gastric wall thickening Disposition: HOME, SELF-CARE Condition: Stable Departure-Patient Inst. Decision time for Depature: 14:27 Referrals: DWAINE HOFF MD (PCP/Family) Primary Care Physician Patient Instructions: Chest Pain, Palpitations Add. Discharge Instructions: You were evaluated in the emergency department for chest pain and palpitations. The cause of your symptoms has not been identified. Please continue current home medications and follow-up with your PCP and GI specialist. Return to the ED if new or worsening symptoms. All discharge instructions reviewed with patient and/or family. Voiced understanding. ETHAN RAI DO Jun 18, 2021 14:26
[2021-06-18 14:35] VITALS: BP 131/65
== END 2021-06-18 14:35 | disposition home or self-care (01) ==
LOC: EDUNIT# 11:45 → ER FS 11:47
DX: R07.9 Chest pain, unspecified (principal); R00.2 Palpitations; F41.9 Anxiety disorder, unspecified; K31.9 Disease of stomach and duodenum, unspecified; J45.909 Unspecified asthma, uncomplicated; F32.9 Major depressive disorder, single episode, unspecified; E03.9 Hypothyroidism, unspecified; Z79.890 Hormone replacement therapy; Z79.899 Other long term (current) drug therapy
CPT/HCPCS: 36415; 71045; 71275; 80053; 83735; 84443; 84484; 85025; 85379; 93005; 93041

== ENCOUNTER 2021-07-22 12:37 | Emergency (ER) | payer MEDICARE, MEDICAID ==
[~2021-07-22] VITALS: Ht 167 cm; Wt 85.0 kg
--- OUTSIDE RECORDS SUMMARY | 2021-07-22 12:45 | XMS REPORT | Clinical Summary ---
Author Author [facility] Organization [facility] Address Unknown Phone Unavailable Care Team Providers Care Manager Enterprise Name Role Phone Mike Sprague MD PCP Allergies Comments Active Allergy Reactions Severity Noted Date Codeine Hives, High 03/09/2013 Hallucination s Divalproex Hallucination High 09/06/2019 s Iodinated Contrast- Oral Rash, High 09/10 And Iv Dye Blisters Seasonal Allergies 08/27/2019 Medications End Date Status Medication Sig Dispensed Refills Start Date Active busPIRone (BUSPAR) 10 MG Take 10 mg by 0 08/21 tabletIndications: mouth 3 9 generalized anxiety (three) times disorder a day. Active buPROPion (WELLBUTRIN XL) Take 150 mg 0 150 MG XL 24 hr by mouth 2 tabletIndications: (two) times a anxiety with depression day. Active cyclobenzaprine Take 10 mg by 0 (FLEXERIL) 10 MG tablet mouth 3 (three) times a day. Active DULoxetine (CYMBALTA) 60 Take 60 mg by 0 mg capsule mouth 2 (two) times a day. Active esomeprazole (NEXIUM) 40 Take 40 mg by 0 06/01 MG capsule mouth daily. 9 Active levothyroxine (SYNTHROID, Take 150 mcg 0 LEVOTHROID) 150 MCG by mouth 9 tablet daily. Active lisinopril-hydrochlorothi Take 1 tablet 0 azide by mouth (PRINZIDE,ZESTORETIC) daily. 20-12.5 mg per tablet Active metformin (GLUCOPHAGE) Take 500 mg 0 01 500 mg tablet by mouth 9 daily. Active montelukast (SINGULAIR) Take 10 mg by 0 10 mg tablet mouth daily. 9 Active simvastatin (ZOCOR) 20 MG Take 20 mg by 0 06/28 tablet mouth daily. 9 Active potassium chloride Take 20 mEq 0 (KLOR-CON) 10 MEQ CR by mouth 2 tablet (two) times a day. Active metoprolol succinate Take 25 mg by 0 (TOPROL-XL) 25 MG 24 hr mouth daily. 9 tablet Active fexofenadine (MARIAN Take 180 mg 0 ALLERGY) 180 MG tablet by mouth daily. Active Lidocaine (LIDODERM) 5 % Place 1 patch 0 patch on the skin every 24 hours. Remove & Discard patch within 12 hours or as directed by MD Active lidocaine HCl 1 % Lotn Apply 0 topically. Active clonazePAM (KLONOPIN) 0.5 0.5 mg. 0 09/30 MG tablet 0 Active amoxicillin (AMOXIL) 500 0 MG capsule 0 Active LORazepam (ATIVAN) 0.5 MG Take 0.5 mg 0 08/28 tablet by mouth 6 every 6 (six) hours as needed. Active traMADoL (ULTRAM) 50 mg 0 tablet 0 Active triazolam (HALCION) 0.25 0 MG tablet 0 Active Problems Problem Noted Date S/P cervical spinal fusion 10/04/2019 Cervical cord compression with myelopathy 09/18/2019 Cervical disc disease with myelopathy 08/27/2019 Overview: Formatting of this note might be differ ent from the original. Added automatically from request for hetal feliz [id number] Nonintractable headache 03/07/2018 Left wrist sprain, subsequent encounter 01/27/2018 Knee pain, bilateral 03/09/2013 Depression Anxiety Hypertension Arthritis History of methicillin resistant staphy lococcus aureus (MRSA) Eating disorder Vertigo Peptic ulcer Asthma Sleep apnea GERD (gastroesophageal reflux disease) Diabetes mellitus, type 2 Hypothyroid Immunizations Name Administration Dates Next Due Influenza QIV (IM) 09/04/2020, 09/19/2019, (), 08/29/2017 Influenza QIV 09/04/2020 (recombinant) IM (egg free) Influenza, Seasonal, 12/08/2012 Injectable Family History Medical History Relation Name Comments Alzheimer's disease Father Cancer Father Diabetes type II Father Hypertension Father Stroke Father Arthritis Granddaughter Blood disease Maternal Grandfather Alzheimer's disease Maternal Grandmother Arthritis Maternal Grandmother Anxiety disorder Mother Depression Mother Diabetes type II Mother Heart disease Mother Hypertension Mother Cancer Sister Arthritis Son Relation Name Status Comments Father Granddaughter Maternal Grandfather Maternal Grandmother Mother Sister Son Social History Date Tobacco Use Types Packs/Day Years Used Never Smoker Smokeless Tobacco: Never Used Comments Alcohol Use Standard Drinks/Week Never 0 (1 standard drink = 0.6 o z pure alcohol) Alcohol Habits Answer Date Recorded How often do you have a drink containing alcohol? Never 08/27/2019 How many drinks containing alcohol do you have on No t asked a typical day when you are drinking? How often do you have six or more drinks on one Not asked occasion? Sex Assigned at Date Recorded Not on file Last Filed Vital Signs Reading Time Taken Comments Vital Sign 151/89 11/06/2020 1:21 PM MONITOR TECHNICIAN Blood Pressure 96 11/06/2020 1:21 PM MONITOR TECHNICIAN Pulse 36.7 C (98 F) 11/06/2020 1:21 PM MONITOR TECHNICIAN Temperature 16 09/22/2019 11:14 AM CDT Respiratory Rate 94% 09/22/2019 11:14 AM CDT Oxygen Saturation - - Inhaled Oxygen Concentration 86.2 kg (190 lb) 11/06/2020 1:21 PM MONITOR TECHNICIAN Weight 167.6 cm (5' 6") 11/06/2020 1:21 PM MONITOR TECHNICIAN Height 30.67 11/06/2020 1:21 PM MONITOR TECHNICIAN Body Mass Index Plan of Treatment Health Maintenance Due Date Last Done Comments Diabetes Mellitus 1961 Hemoglobin A1C Diabetes Mellitus 1961 Ophthalmology Exam Hepatitis C Screen 1961 Lipid Screening 1961 Medicare Annual Wellness 1961 Td/Tdap# 1961 Pneumococcal Vaccine: 1967 Pediatrics (0 to 5 Years) and At-Risk Patients (6 to 64 Years) (1 of 2 - PPSV23) Diabetes Mellitus Foot 1971 Exam COVID-19 Vaccine (1) 1973 Cervical Cancer Screening 1982 via Pap Smear Colorectal Screening via 2011 Colonoscopy Mammogram Screening 2011 Zoster Vaccine# (1 of 2) 2011 Influenza Vaccine (#1) 2021 09/04/2020, 09/04/2020, 09/19/2019, Additional history exists Depression Screening 2026 08/27/2019 PHQ-9 # Implants Device Identifier Shelf Expiration Date Model / Serial / L ot Implanted Type Area Manufactur er 09/22/2020 -1600-002 / [id number] / Implant Allograft Vivigen Formable Non-Tissue N/A: Spine LIFENET 2nd Gen Med Human Tissue Implant Cervical -1600-002 - [id number] Implanted: Qty: 1 on 09/18/2019 by Frank Morin MD at [facility] 04.614.770 / / Implant Herberth 3.5mm X 70cm [id number] Non-Tissue N/A: Spine DEPUY - [id number] Implant Cervical SPINE Implanted: Qty: 2 on 09/18/2019 by Frank Morin MD at [facility] 04.614.012 / / Implant Screw Synapse 3.5mm X 12mm Non-Tissue N/A: Spine DEPUY 04.614.012 - [id number] Implant Cervical SPINE Implanted: Qty: 1 on 09/18/2019 by Frank Morin MD at [facility] [id number] / / Implant Screw Synapse 3.5mm X 14mm Non-Tissue N/A: Spine DEPUY 04.614.014 - [id number] Implant Cervical SPINE Implanted: Qty: 7 on 09/18/2019 by Frank Morin MD at [facility] [id number] / / Implant Screw Synapse 4.0mm X 14mm Non-Tissue N/A: Spine DEPUY 04.614.114 - [id number] Implant Cervical SPINE Implanted: Qty: 1 on 09/18/2019 by Frank Morin MD at [facility] [id number] / / Implant Screw Synapse 3.5mm X 18mm Non-Tissue N/A: Spine DEPUY 04.614.018 - [id number] Implant Cervical SPINE Implanted: Qty: 1 on 09/18/2019 by Frank Morin MD at [facility] [id number] / / Implant Screw Ti Locking 04.614.508 Non-Tissue N/A: Spine DEPUY - [id number] Implant Cervical SPINE Implanted: Qty: 12 on 09/18/2019 by Frank Morin MD at [facility] 04.614.330 / / Implant Screw Ti Cortex Poly Axial Non-Tissue N/A: Spine DEPUY 3.5mm X 30mm 04.614.330 - Implant Cervical SPIN E [id number] Implanted: Qty: 1 on 09/18/2019 by Frank Morin MD at [facility] [id number] / / Implant Screw Ti Cortex Poly Axial Non-Tissue N/A: Spine DEPUY 3.5mm X 28mm 04.614.328 - Implant Cervical SPIN E [id number] Implanted: Qty: 1 on 09/18/2019 by Frank Morin MD at [facility] Device Identifier Shelf Expiration Date Model / Serial / L ot Explanted Type Area Manufactur er 04.614.330 / / Implant Screw Ti Cortex Poly Axial Non-Tissue N/A: Spine DEPUY 3.5mm X 30mm 04.614.330 - Implant Cervical SPIN E [id number] Explanted: Qty: 1 on 09/18/2019 by Frank Morin MD at [facility] Results Not on filefrom Last 3 Months Insurance Type Payer Benefit Subscriber ID Effective Phone Address Plan / Dates Group MEDICARE REPLACEMENT PLAN [employer] [id number] 2019-P MEDICARE resent ADVANTAGE LEGACY [place] [id number] 2019-P [place]ICA[place] Advance Directives For more information, please contact: [phone] Patient Dipping Machine Operator Explanation Type Date Recorded Health Care Directive Perceptive Content Scan Power of Toy Maker 09/18/2019 6:13 AM Date Inactivated Comments Code Status Date Activated 09/22/2019 7:51 PM Full Code 09/18/2019 4:30 PM
--- OUTSIDE RECORDS SUMMARY | 2021-07-22 12:46 | XMS REPORT | Clinical Summary ---
Author Author [facility] Organization [facility] Address Unknown Phone Unavailable Care Team Providers Care Cashier And Waiter/Waitress Name Role Phone Sanjeev Del Real MD Unavailable Mike Sprague DO PCP Eliud Tao MD Unavailable Lei Lundy MD Unavailable Source Comments Some departments are not documenting in the electronic medical record. If you d o not see the information that you expected, contact Release of Information in [facility] [employer] Information Management department at [phone] for further assistan ce in locating additional records.[facility] Allergies Comments Active Allergy Reactions Severity Noted Date Povidone-Iodine RASH 03/09/2013 Codeine HALLUCINATION 03/09/2013 S Medications End Date Status Medication Sig Dispensed Refills Start Date Active busPIRone (BUSPAR) 10 mg Take 10 mg by 0 tablet mouth four times daily. Active DULoxetine DR (CYMBALTA) Take 60 mg by 0 60 mg capsule mouth twice daily. Active methadone(+) (METHADOSE; Take 10 mg by 0 METHADONE INTENSOL) 10 mouth every 6 mg/mL oral concentrate hours Active potassium chloride SR Take 20 mEq 0 (K-DUR) 10 mEq tablet by mouth twice daily. Active lidocaine (LIDODERM) 5 % Apply 1 Patch 0 topical patch to affected area every 24 hours. Active buPROPion XL (WELLBUTRIN Take 150 mg 0 XL) 150 mg tablet by mouth twice daily. Active simvastatin (ZOCOR) 20 mg Take 20 mg by 0 tablet mouth at bedtime daily. Active melatonin 3 mg Tab Take 3 mg by 0 mouth at bedtime daily. Active metFORMIN (GLUCOPHAGE) Take 500 mg 0 500 mg tablet by mouth daily. Active lisinopril (PRINIVIL; Take 5 mg by 0 ZESTRIL) 5 mg tablet mouth daily. Active levothyroxine (SYNTHROID) Take 175 mcg 0 200 mcg tablet by mouth daily. Active hydrochlorothiazide Take 12.5 mg 0 (HYDRODIURIL) 12.5 mg Tab by mouth tablet daily. Active folic acid 400 mcg tablet Take 800 mcg 0 by mouth daily. Active fexofenadine(+) (MARIAN) Take 180 mg 0 180 mg tablet by mouth daily. Active methadone (DOLOPHINE; Take 10 mg by 0 METHADOSE) 10 mg tablet mouth six times daily Active tiZANidine (ZANAFLEX) 4 Take 4 mg by 0 mg tablet mouth every 6 hours as needed. Active Problems Problem Noted Date Degenerative disc disease, cervical 03/07/2018 Nonintractable headache 03/07/2018 Knee pain, bilateral 03/09/2013 Hip pain, bilateral 03/09/2013 Surgical History Surgery Date Site/Laterality Comments HX CHOLECYSTECTOMY laproscopic HX HEART CATHETERIZATION x2 HX CARPAL TUNNEL RELEASE gloria KNEE SURGERY x 3 SHOULDER SURGERY x3 HX TONSILLECTOMY 2011 WRIST SURGERY 1983 left wrist Medical History Medical History Date Comments Complication of anesthesia Arthritis Back pain Heart abnormality Carpal tunnel syndrome DM (diabetes mellitus) (HCC) Fracture Recurrent infections Osteoarthritis Raynaud's disease Thyroid disease Chronic fatigue Fibromyalgia Lyme disease chronic Eating disorder Family History Medical History Relation Name Comments Cancer Father Diabetes Type II Father Stroke Father Arthritis-rheumatoid Mother Diabetes Type II Mother Relation Name Status Comments Father Mother Alive Social History Date Tobacco Use Types Packs/Day Years Used Never Smoker Smokeless Tobacco: Never Used Comments Alcohol Use Standard Drinks/Week Not Asked 0 (1 standard drink = 0.6 o z pure alcohol) Sex Assigned at Date Recorded Not on file Last Filed Vital Signs Reading Time Taken Comments Vital Sign 146/77 03/07/2018 9:37 AM CDT Blood Pressure 109 03/07/2018 9:37 AM CDT Pulse 36.8 C (98.2 F) 03/07/2018 9:37 AM CDT Temperature - - Respiratory Rate 90% 03/07/2018 9:37 AM CDT Oxygen Saturation - - Inhaled Oxygen Concentration 84 kg (185 lb 1.9 oz) 03/07/2018 9:37 AM CDT Weight 166.4 cm (5' 5.5") 03/07/2018 9:37 AM CDT Height 30.34 03/07/2018 9:37 AM CDT Body Mass Index Plan of Treatment Health Maintenance Due Date Last Done Comments MEDICARE ANNUAL WELLNESS 1961 VISIT HIV SCREENING 1976 DTAP/TDAP VACCINES (1 - 1979 Tdap) HEPATITIS C SCREENING 1979 PHYSICAL (COMPREHENSIVE) 1979 EXAM CERVICAL CANCER SCREENING 1982 BREAST CANCER SCREENING 2001 COLORECTAL CANCER 2011 SCREENING SHINGLES RECOMBINANT 2011 VACCINE (1 of 2) INFLUENZA VACCINE 08/28/2021 Results Not on filefrom Last 3 Months Insurance Type Payer Benefit Subscriber ID Effective Phone Address Plan / Dates Group Medicare MEDICARE MEDICARE [id number] 2005-P PART A AND resent B Medicaid [employer] [place] [employer] [id number] 2010- STATE Present HEALTH ([facility]) [place] [address] Advance Directives Patient Electronic News Gathering Editor Explanation Type Date Recorded Advance 03/02/2018 10:23 AM Directive/DPOA
--- NOTE | 2021-07-22 13:16 | ED Headache ---
General Chief Complaint: Head/Cervical Problems Stated Complaint: LT HEAD PAIN; HEADACHE Source: patient, old records History of Present Illness Date Seen by Provider: Jul 22, 2021 Time Seen by Provider: 12:39 Initial Comments 60 yo female presenting with complaint of over a week of left sided headache and numbness in left side of head. Intermittent neck pain since cervical fusion in 2019. Occasional left eye vision blurred. No fever, chills, recent fall, new head injury, numbness/tingling in extremities, nausea, vomiting. She reports history of migraines but that this feels different than when she has had those. She has no sinus pressure or congestion. No cough. Prior Headaches/Recent Trauma: no recent headache/trauma Associated Symptoms: No confusion, No fatigue, No facial pain, No fever/chills, No flushing, No loss of consciousness, No nausea/vomiting, No nasal congestion, No nasal drainage, No numbness in legs/feet, No seizures, No sinus infection, No stiff neck, No weakness Allergies and Home Medications Allergies Coded Allergies: iodine (Verified Allergy, Severe, BLISTERS, 05/20/19) codeine (Verified Adverse Reaction, Unknown, HALLUCINATIONS, 05/20/19) divalproex sodium (Verified Adverse Reaction, Unknown, HALLUCINATIONS, 05/20/19) Home Medications Bupropion HCl 150 Mg Tablet.er, 150 MG PO BID, (Reported) Buspirone HCl 10 Mg Tablet, 10 MG PO TID, (Reported) Clonazepam 0.5 Mg Tablet, 0.5 MG PO TID PRN for ANXIETY, (Reported) Cyclobenzaprine HCl 10 Mg Tablet, 10 MG PO TID, (Reported) Doxycycline Hyclate 100 Mg Tablet, 30 MG PO BID, (Reported) Duloxetine HCl 30 Mg Capsule.dr, 30 MG PO DAILY, (Reported) Esomeprazole Magnesium 40 Mg Capsule.dr, 40 MG PO DAILY, (Reported) Fexofenadine HCl 180 Mg Tablet, 180 MG PO DAILY, (Reported) Levothyroxine Sodium 150 Mcg Tablet, 150 MCG PO DAILY, (Reported) Lisinopril 20 Mg Tablet, 20 MG PO DAILY, (Reported) Metformin HCl 500 Mg Tablet, 500 MG PO DAILY, (Reported) Metoprolol Succinate 25 Mg Tab.er.24h, 25 MG PO DAILY, (Reported) Montelukast Sodium 10 Mg Tablet, 10 MG PO DAILY, (Reported) Potassium Chloride 10 Meq Tablet.er, 10 MEQ PO DAILY, (Reported) Quetiapine Fumarate 50 Mg Tablet, 50 MG PO DAILY, (Reported) Simvastatin 20 Mg Tablet, 20 MG PO DAILY, (Reported) Patient Home Medication List Home Medication List Reviewed: Yes Review of Systems Review of Systems Constitutional: No chills, No fever Eyes: See HPI Ears, Nose, Mouth, Throat: no symptoms reported Respiratory: no symptoms reported Cardiovascular: no symptoms reported Gastrointestinal: no symptoms reported Genitourinary: no symptoms reported Musculoskeletal: see HPI Skin: No rash Psychiatric/Neurological: See HPI, Anxiety, Headache (left side) Past Zgqvxky-Bwmksc-Fmvsuz Hx Immunizations Up To Date Tetanus Booster (TDap): Unknown PED Vaccines UTD: Yes Seasonal Allergies Seasonal Allergies: Yes Past Medical History Surgery/Hospitalization HX: EGD in March with biopsy, esophagus recently stretched. Surgeries: Yes (C1-C6 FUSED. ) Gallbladder, Orthopedic, Tubal Ligation Respiratory: Yes Asthma Cardiac: Yes (tachycardia) Irregular Heartbeat Neurological: Yes (CHRONIC LYME DISEASE) PAPER HANGER History: Menopausal Sexually Transmitted Disease: No Genitourinary: No Gastrointestinal: Yes Chronic Constipation Musculoskeletal: Yes (BILATERAL CARPAL TUNNEL REPAIR) Arthritis, Fibromyalgia Endocrine: Yes (BORDERLINE DIABETES) Hypothyroidsim HEENT: No Cancer: No Psychosocial: Yes Anxiety, Depression Integumentary: No Blood Disorders: No Physical Exam Vital Signs Vital Signs - First Documented 07/22/21 13:00 Temp 36.5 Pulse 86 Resp 20 B/P (MAP) 113/51 (71) Pulse Ox 98 O2 Delivery Room Air Capillary Refill : Height, Weight, BMI Height: 5'6.00" Weight: 160lbs. oz. [id number]; 31.00 BMI Method:Stated General Appearance: WD/WN, no apparent distress HEENT: PERRL/EOMI, normal ENT inspection, TMs normal, pharynx normal Neck: non-tender, other (scar present from old cervical fusion and decreased ROM due to fusion) Cardiovascular: normal peripheral pulses, regular rate, rhythm Respiratory: chest non-tender, lungs clear, normal breath sounds Gastrointestinal: normal bowel sounds, non tender, soft Extremities: normal range of motion, non-tender, normal capillary refill Psychiatric: alert, oriented x 3 Crainal Nerves: normal hearing, normal speech, PERRL Coordination/Gait: normal gait Motor/Sensory: no motor deficit, no sensory deficit Skin: normal color, warm/dry Progress/Results/Core Measures Results/Orders My Orders Orders - MARICRUZ BUSTILLOS MD Ct Head/Cervical Spine Wo (07/22/21 13:10) Ketorolac Injection (Toradol Injection) (07/22/21 14:24) Vital Signs/I&O 07/22/21 07/22/21 13:00 14:27 Temp 36.5 36.5 Pulse 86 72 Resp 20 20 B/P (MAP) 113/51 (71) 116/62 (71) Pulse Ox 98 98 O2 Delivery Room Air Progress Progress Note #1: Progress Note Patient refused medications and treatment for possible atypical migraine. Will obtain CT of the head and cervical spine to evaluate for any acute changes. Progress Note #2: Progress Note No acute fracture in cervical spine and CT head stable from prior imaging without acute findings. Mild lucency around C6 screws that could indicate some mild loosening but no sign of hardware fracture or displacement. Will have pt check back with neurosurgery/ortho that did surgery on cervical fusion. offer muscle relaxer and encourage pt to check with pcp as well as the surgeon from [facility]. When offered muscle relaxer pt reports she already takes flexeril at home TID every day. Her surgeon for her neck moved to [place] but pt can check with another spine doctor on referral from pcp. Diagnostic Imaging Diagonstic Imaging: CT Plain Films/CT/US/NM/MRI: c-spine, head Comments NAME: DELL LYLES [facility] REC#: [id number] PT STATUS: REG ER : 1960 PHYSICIAN: MARICRUZ BUSTILLOS MD ADMIT DATE: 07/22/21/ER FS Draft Date of Exam:07/22/21 CT HEAD/CERVICAL SPINE WO PROCEDURE: CT head and CT cervical spine without contrast. TECHNIQUE: Multiple contiguous axial images were obtained through the brain and cervical spine without the use of intravenous contrast. Sagittal and coronal reformations through the cervical spine were then performed. Auto Exposure Controls were utilized during the CT exam to meet ALARA standards for radiation dose reduction. INDICATION: Left-sided headache and neck pain. FINDINGS: CT HEAD: Comparison is made with head CT from 04/07/2021. The ventricles and sulci are within normal limits. No sulcal effacement or midline shift is identified. No acute intra-axial or extra-axial hemorrhage is detected. Cisterns are patent. Visualized paranasal sinuses are clear. IMPRESSION: No acute intracranial process is detected. CT CERVICAL SPINE: Comparison is made with prior CT from 09/26/2019. Laminectomy from C1 through C6 is again noted. There are postop changes of posterior instrumented fusion with vertical stabilization rods and posterior element screws extending from C1 through C6. There is slight lucency surrounding the screws at the C6 level bilaterally which could indicate minimal loosening. No screw fracture is seen. Multilevel degenerative disc disease is noted with variable disc space narrowing and marginal spurring. No fractures are identified. Prevertebral tissues are within normal limits. Odontoid is intact. IMPRESSION: Extensive postop changes of a laminectomy with posterior instrumented fusion from C1 through C6. There is slight lucency about the posterior element screws at the C6 level bilaterally which could indicate some minimal loosening. No screw fracture is seen. Bony structures show diffuse multilevel spondylosis but no acute bony abnormality is detected. Dictated on workstation # [id number] Dict: 07/22/21 1332 Trans: 07/22/21 1346 [id number] Interpreted by: RENETTA CUNNINGHAM MD Electronically signed by: Reviewed: Reviewed by Me Departure Impression Primary Impression: Left-sided headache Additional Impression: Loosening of orthopedic screw Disposition: HOME, SELF-CARE Condition: Stable Departure-Patient Inst. Decision time for Depature: 14:25 Referrals: SELFDWAINE MD (PCP/Family) Primary Care Physician Patient Instructions: Headache, Adult ED, Home Headache Remedies Add. Discharge Instructions: Check with clinic for continued symptoms/concerns. You may need to see surgeon about your cervical fusion if you have continued symptoms/problems. The CT showed possible mild loosening of screws at C6 level. All discharge instructions reviewed with patient and/or family. Voiced understanding. MARICRUZ BUSTILLOS MD Jul 22, 2021 13:16
--- NOTE | 2021-07-22 13:46 | Diagnostic Imaging Report ---
PROCEDURE: CT head and CT cervical spine without contrast. TECHNIQUE: Multiple contiguous axial images were obtained through the brain and cervical spine without the use of intravenous contrast. Sagittal and coronal reformations through the cervical spine were then performed. Auto Exposure Controls were utilized during the CT exam to meet ALARA standards for radiation dose reduction. INDICATION: Left-sided headache and neck pain. FINDINGS: CT HEAD: Comparison is made with head CT from 04/07/2021. The ventricles and sulci are within normal limits. No sulcal effacement or midline shift is identified. No acute intra-axial or extra-axial hemorrhage is detected. Cisterns are patent. Visualized paranasal sinuses are clear. IMPRESSION: No acute intracranial process is detected. CT CERVICAL SPINE: Comparison is made with prior CT from 09/26/2019. Laminectomy from C1 through C6 is again noted. There are postop changes of posterior instrumented fusion with vertical stabilization rods and posterior element screws extending from C1 through C6. There is slight lucency surrounding the screws at the C6 level bilaterally which could indicate minimal loosening. No screw fracture is seen. Multilevel degenerative disc disease is noted with variable disc space narrowing and marginal spurring. No fractures are identified. Prevertebral tissues are within normal limits. Odontoid is intact. IMPRESSION: Extensive postop changes of a laminectomy with posterior instrumented fusion from C1 through C6. There is slight lucency about the posterior element screws at the C6 level bilaterally which could indicate some minimal loosening. No screw fracture is seen. Bony structures show diffuse multilevel spondylosis but no acute bony abnormality is detected. Dictated by: Dictated on workstation # [id number]
[2021-07-22] MEDS ORDERED: KETOROLAC 60 MG/2 ML VIAL IM STA (14:24)
[2021-07-22 14:27] VITALS: BP 116/62
== END 2021-07-22 14:32 | disposition home or self-care (01) ==
LOC: EDUNIT# 12:37 → ER FS 12:41
DX: R51.9 Headache, unspecified (principal); T84.038A Mechanical loosening of other internal prosthetic joint, initial encounter; J45.909 Unspecified asthma, uncomplicated; E03.9 Hypothyroidism, unspecified; F41.9 Anxiety disorder, unspecified; F32.9 Major depressive disorder, single episode, unspecified; Z79.890 Hormone replacement therapy
CPT/HCPCS: 70450; 72125

== ENCOUNTER → 2022-01-12 | Outpatient (CLI) | payer MEDICARE ==
[~2022-01-12] MED LIST changes: +CYCL10TA25 PO; -CYCL10TA9 PO; +MONT-40 PO; -MONT10TA32 PO; -QUET50TA22 PO; +QUET50TA23 PO
--- NOTE | 2022-01-12 12:19 | Diagnostic Imaging Report ---
History: Right shoulder pain TECHNIQUE: 4 views of the right shoulder COMPARISON: None FINDINGS: No acute fracture or dislocation is seen in the right shoulder. Alignment appears normal. Joint spaces are preserved. There is calcification lateral to the humeral head. IMPRESSION: 1. No acute osseous abnormality is seen in the right shoulder. 2. Calcific tendinitis in the distal right rotator cuff. Dictated by: Dictated on workstation # [id number]
== END ==
LOC: RAD FS 10:24
PROVIDERS: ATTEND Nurse Practitioner
DX: M75.31 Calcific tendinitis of right shoulder (principal)
CPT/HCPCS: 73030

== ENCOUNTER → 2022-03-09 | Outpatient (CLI) | payer MEDICARE ==
[~2022-03-09] MED LIST changes: +FEXO-249 PO; -FEXO-46 PO
--- NOTE | 2022-03-09 13:06 | Diagnostic Imaging Report ---
INDICATION: Left shoulder pain. TIME OF EXAM: 11:26 AM. TECHNIQUE: Multiple views of the left shoulder were obtained. FINDINGS: The glenohumeral alignment is normal. There has been resection of the distal aspect of the left clavicle. There is a small calcific density adjacent to the greater tuberosity. This can be seen with calcific tendinitis of the rotator cuff. No fractures are seen. IMPRESSION: Calcification adjacent to the greater tuberosity which can be seen with calcific tendinitis of the rotator cuff. No other significant abnormality is detected. Dictated by: Dictated on workstation # [id number]
== END ==
LOC: RAD FS 11:06
PROVIDERS: ATTEND Nurse Practitioner
DX: M75.32 Calcific tendinitis of left shoulder (principal)
CPT/HCPCS: 73030

== ENCOUNTER → 2022-05-19 | Outpatient (CLI) | payer MEDICARE ==
[~2022-05-19] VITALS: Ht 167 cm; Wt 86.0 kg
[~2022-05-19] MED LIST changes: +BUPR-105 PO; -BUPR150T14 PO; -FEXO-249 PO; +NF-ALLE180 PO; +REGADENOSON 0.4 MG/5 ML SYR (LEXISCAN) IV ONE
[2022-05-19] MEDS: CATHETER FLUSH 10 ML SYR IVP PRN ×2 (11:37→13:21)
[2022-05-19 13:19] VITALS: BP 164/94
--- NOTE | 2022-05-19 15:18 | Cardiology Stress Test Report ---
Stress Test Report Date of Procedure/Referring: Date of Procedure: May 19, 2022 PCP Donnell Ochoa MD Admitting Physician Admitting Physician: Attending Physician: Tanvir Kirby MD Indications: CP Baseline Heart Rate: 83 Baseline Blood Pressure: Blood Pressure Systolic: 164 Blood Pressure Diastolic: 94 Baseline Vitals Vital Signs Date Time Temp Pulse Resp B/P (MAP) Pulse Ox O2 Delivery O2 Flow Rate FiO2 05/19/22 13:19 85 16 164/94 (117) 98 Room Air Baseline EKG: Baseline EKG: NSR Summary After explaining the procedure to the patient, she signed a consent and then brought to the stress nuclear laboratory. Patient received 0.4 mg Lexiscan for stress test, ECG, heart rate and blood pressure were monitored continuously. Resting and stress dose of radio tracer were injected, imaging was acquired and reviewed in short axis, horizontal long axis and vertical long axis views. TID: 0.99 SSS: 4 SDS: 4 EF: 89 1. Patient tolerated Lexiscan well 2. Increase intestinal uptake affecting the quality of the images, there is mild decrease uptake at the basal to mid inferior wall with mild reversibility, there is no significant ischemia or infarction on SPECT images 3. Normal left ventricular size, calculated ejection fraction 89% TANVIR KIRBY MD May 19, 2022 15:18
== END ==
LOC: CARD 09:42
PROVIDERS: ATTEND Internal Medicine Cardiovascular Disease
DX: I25.10 Atherosclerotic heart disease of native coronary artery without angina pectoris (principal); I10 Essential (primary) hypertension
CPT/HCPCS: 78452; 93017; A9502

== ENCOUNTER → 2022-05-19 | Outpatient (CLI) | payer MEDICARE ==
[~2022-05-19] MED LIST changes: -REGADENOSON 0.4 MG/5 ML SYR (LEXISCAN) IV ONE
== END ==
LOC: CARD 09:40
PROVIDERS: ATTEND Internal Medicine Cardiovascular Disease
DX: I25.10 Atherosclerotic heart disease of native coronary artery without angina pectoris (principal); I10 Essential (primary) hypertension
CPT/HCPCS: 93306

== ENCOUNTER 2022-06-02 05:58 | Outpatient (CLI) | payer MEDICARE ==
[~2022-06-02] VITALS: Ht 162 cm; Wt 88.9 kg
[2022-06-04] MEDS ORDERED: MULT-1136 PO (09:20)
[2022-06-04] MEDS ORDERED: GABA-486 PO (09:20)
[2022-06-04] MEDS ORDERED: FEXO180T84 PO (09:20)
[2022-06-04] MEDS ORDERED: LIDO700A45 TP (09:20)
[2022-06-04] MEDS ORDERED: IBUP-1780 PO (09:20)
[2022-06-04] MEDS ORDERED: MTP100TCR PO (09:20)
[2022-06-04] MEDS ORDERED: CHOL-34 PO (09:20)
== END 2022-06-04 09:44 | disposition home or self-care (01) ==
LOC: PREOP 05:58
PROVIDERS: ATTEND Orthopaedic Surgery
DX: Z01.818 Encounter for other preprocedural examination (principal)

== ENCOUNTER 2022-06-09 06:10 | Day surgery (SDC) | payer MEDICAID, MEDICARE ==
--- NOTE | 2022-06-01 20:09 | HISTORY AND PHYSICAL ---
DATE OF SERVICE: ADMISSION HISTORY AND PHYSICAL This will be for outpatient surgery on 06/09/2022 for left shoulder arthroscopy and rotator cuff repair. HISTORY OF PRESENT ILLNESS: The patient is a 61-year-old right hand dominant female with progressively worsening left shoulder pain and weakness. She has undergone treatment with symptomatic care as well as injections and physical therapy. She reports continued pain. An MRI revealed a full-thickness supraspinatus tear. Due to functional impairment and failure to improve with conservative measures, the patient has elected to proceed with surgical intervention. REVIEW OF SYSTEMS: No chest pain, no shortness of breath, no dysuria. PAST MEDICAL HISTORY: Anemia, anxiety, arthritis, asthma, Lyme's disease, bladder spasms, depression, diabetes, migraines, reflux, hypothyroidism, ulcer, hiatal hernia, tachycardia, history of MRSA, fibromyalgia, sleep apnea. PAST SURGICAL HISTORY: Left ulna, right knee, right shoulder, left rotator cuff, bilateral carpal tunnel, cholecystectomy, tubal ligation, cervical spine. SOCIAL HISTORY: The patient denies alcohol and tobacco use. FAMILY HISTORY: Significant for Alzheimer's disease, cancer, hypertension. PRIMARY CARE PROVIDER: Dr. Ochoa. MEDICATIONS: Cymbalta, buspirone, levothyroxine, metformin, Montelukast, Nexium, potassium, Wellbutrin, tramadol, prednisone, simvastatin. ALLERGIES: CODEINE, IODINE, CONTRAST DYE. PHYSICAL EXAMINATION: GENERAL: The patient is well-developed, well-nourished, in no acute distress. HEENT: Normocephalic, atraumatic. Pupils are equal, round and reactive to light. Oropharynx is clear. NECK: Supple, no lymphadenopathy. LUNGS: Clear to auscultation bilaterally. HEART: Regular rate and rhythm. ABDOMEN: Soft, nontender, nondistended. EXTREMITIES: Left shoulder demonstrates positive Neer's and positive Iraheta sign. She has weakness with abduction and external rotation. She has symmetric forward elevation, external and internal rotation. IMPRESSION: Left rotator cuff tear. PLAN: Left shoulder arthroscopy with open rotator cuff repair. The risks, benefits, options, ramifications and recovery were discussed at length with the patient. She understands and wishes to proceed. Job ID: [id number] DocumentID: [id number] Dictated Date: 05/24/2022 16:20:13 Shell Fisherman Date: 05/24/2022 18:56:36 Dictated By: FAN LEZAMA MD
[~2022-06-09] VITALS: Ht 162 cm; Wt 88.9 kg
[2022-06-09] VITALS (12 sets, daily range): BP systolic 83–115; BP diastolic 48–72
[~2022-06-09 06:10] MED LIST changes: +CHOL-34 PO; +FEXO180T84 PO; +GABA-486 PO; +IBUP-1780 PO; +LIDO700A45 TP; +MTP100TCR PO; +MULT-1136 PO
[2022-06-09] MEDS ORDERED: ROPIVACAINE 5MG/ML 30ML VIAL ONE (06:47)
[2022-06-09] MEDS ORDERED: LIDOCAINE PF 2% 5 ML (XYLOCAINE) VIAL ONE (06:47)
[2022-06-09] MEDS ORDERED: MIDAZOLAM 2 MG/2 ML (VERSED) VIAL ONE (06:47)
[2022-06-09] MEDS ORDERED: fentaNYL INJ 100 MCG/2 ML AMP ONE (06:53)
[2022-06-09] MEDS ORDERED: ONDANSETRON 4 MG/2 ML (SDV) Z0FRAN ONE (06:54)
[2022-06-09] MEDS ORDERED: ROCURONIUM 50 MG/5 ML (ZEMURON) VIAL IV ONE (06:54)
[2022-06-09] MEDS ORDERED: proPOfol 200 MG/20 ML (DIPRIVAN) VIAL IV ONE (06:54)
[2022-06-09] MEDS ORDERED: ceFAZolin INJECTION 1,000 MG VIAL IV ONE (07:00)
[2022-06-09] MEDS ORDERED: morphine PF (DURAMORPH) 10 MG/10 ML AMP ONE (07:19)
[2022-06-09] MEDS ORDERED: BUPIVACAINE 0.25% 30 ML (SENSORCAINE) VIAL ONE (07:19)
[2022-06-09] MEDS: LACTATED RINGERS 1,000 ML IV PRN ×2 (07:22→08:20)
[2022-06-09] MEDS ORDERED: oxyCODONE/APAP 5/325MG (PERCOCET 5) TABLET PO PRN (07:30)
--- NOTE | 2022-06-09 07:33 | Progress Note-Pre Operative ---
Pre-Operative Progress Note H&P Reviewed The H&P was reviewed, patient examined and no changes noted. Date Seen by Provider: Jun 09, 2022 Time Seen by Provider: 07:22 Date H&P Reviewed: Jun 09, 2022 Time H&P Reviewed: 07:11 Pre-Operative Diagnosis: left rotator cuff tear FAN LEZAMA MD Jun 09, 2022 07:33
--- NOTE | 2022-06-09 07:34 | Progress Note-Post Operative ---
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
[2022-06-09] MEDS ORDERED: NEOSTIGMINE (BLOXIVERZ ) 1 MG/1ML 10 ML VIAL ONE (08:35)
[2022-06-09] MEDS ORDERED: GLYCOPYRROLATE 0.2 MG/ML (ROBINUL) 2 ML VIAL ONE (08:35)
[2022-06-09] MEDS ORDERED: SEVOFLURANE (ULTANE) 15 ML INHAL SOLN ONE (08:44)
[2022-06-09] MEDS ORDERED: ONDANSETRON 4 MG/2 ML (SDV) Z0FRAN IVP PRN (09:00)
[2022-06-09] MEDS ORDERED: MEPERIDINE (DEMEROL) INJ 50 MG/ML IVP ONE (09:00)
[2022-06-09] MEDS ORDERED: morphine INJ 10 MG/ML 1ML (SYR OR VIAL) IVP ONE (09:00)
[2022-06-09] MEDS ORDERED: morphine INJ 10 MG/ML 1ML (SYR OR VIAL) ONE (09:07)
[2022-06-09] MEDS ORDERED: oxyCODONE/APAP 5/325MG (PERCOCET 5) TABLET ONE (10:20)
--- NOTE | 2022-06-09 10:37 | Anesthesia-General Post-Op ---
General Patient Condition Mental Status/LOC: Same as Preop Cardiovascular: Satisfactory Nausea/Vomiting: Absent Respiratory: Satisfactory Pain: Controlled Complications: Absent Post Op Complications Complications None Follow Up Care/Instructions Patient Instructions None needed. Anesthesia/Patient Condition Patient Condition Patient is doing well, no complaints, stable vital signs, no apparent adverse anesthesia problems. No complications reported per nursing. EARLENE RAMIRES CRNA Jun 09, 2022 10:37
--- NOTE | 2022-06-09 15:34 | OPERATIVE REPORT ---
DATE OF SERVICE: 06/09/2022 PREOPERATIVE DIAGNOSIS: Chronic left rotator cuff tear. POSTOPERATIVE DIAGNOSES: 1. Chronic left rotator cuff tear. 2. Left humeral head chondromalacia. 3. Left glenoid chondromalacia. PROCEDURES: 1. Left shoulder open rotator cuff repair. 2. Left shoulder arthroscopic chondroplasty of the humeral head. 3. Left shoulder arthroscopic chondroplasty of the glenoid. 4. Left shoulder arthroscopic acromioplasty. SURGEON: Daniele Rios MD OPEN SOAPER TENDER: Rivas Murry, who assisted throughout the procedure and closed the incisions. ANESTHESIA: General endotracheal plus interscalene nerve block by Moreno Ca CRNA. ESTIMATED BLOOD LOSS: Minimal. DRAINS: None. COMPLICATIONS: None. POSTOPERATIVE PLAN: Passive range of motion and sling wear for 4 weeks. The patient was transferred to the recovery room, awake and in stable condition. STATEMENT OF MEDICAL NECESSITY: The patient is a 61-year-old right hand dominant female with complaints of left shoulder pain and weakness. She underwent an MRI and ultimately after failing conservative measures and was found to have a full-thickness supraspinatus tear. She tried injections, rest and activity modifications without relief. Due to functional impairment and failure to improve with conservative measures, the patient elected to proceed with surgical intervention. Examination under anesthesia revealed forward elevation of 170 degrees, external rotation of 90 degrees and internal rotation of 80 degrees. Arthroscopic findings demonstrated 90% tearing of the supraspinatus at the mid portion of its footprint. The remainder of the rotator cuff was intact. There was grade III chondral loss over the central portion of the humeral head in a 20 x 20 area with surrounding grade III chondral flaps at the periphery. The glenoid demonstrated grade III chondral flaps anteriorly in a 10 x 10 area at the glenoid rim. The labrum was intact. The biceps anchor was intact. Subacromial space demonstrated moderate bursitis with sloping of the anterolateral acromion. DESCRIPTION OF PROCEDURE: After risks and benefits of procedure were discussed and questions were answered, an informed consent was signed and placed on chart, the operative site was confirmed in the preoperative holding area initialed by the surgeon. The patient was then transferred to the operating room and after adequate levels of general endotracheal anesthetic were obtained, a timeout was called, confirming the operative site. Examination under anesthesia was performed with above findings noted. The left shoulder and upper extremity were prepped and draped in the usual sterile fashion. Shoulder joint was injected with 20 mL of fluid as was the subacromial space. A standard posterior portal was placed under direct visualization. Anterior portal was created in interval between the biceps, subscapularis and glenoid. The labrum was carefully probed with the above findings noted. The unstable chondral flaps on the glenoid and humeral head were debrided with a shaver back to a stable edge. The scope was redirected into the subacromial space. Lateral portal was created. Bursectomy was performed and the acromion was planed to a flat type 1 acromion. Lateral portal was then extended. The deltoid was split in line with its fibers leaving attached to the acromion. The rotator cuff tear was completed sharply, and a bleeding bony bed was prepared just off the articular surface. Rotator cuff tear was repaired to this using a corkscrew anchor in a modified Mani-John repair. An excellent repair was obtained with no undue tension at the arm at the side. The wound was copiously irrigated. The deltoid was repaired in [id number] fashion using #2 FiberWire in [id number] interrupted fashion. The wound was further irrigated, 3-0 Vicryl was used to reapproximate subcutaneous tissue. Skin was closed with 4-0 nylon running alternating horizontal mattress fashion. The portal sites were closed with 4-0 nylon in similar fashion, the shoulder joint was injected with Duramorph. The portal sites were infiltrated with plain Marcaine. A soft dressing and sling were applied. The patient was transferred to recovery room awake and in stable condition. Job ID: [id number] DocumentID: [id number] Dictated Date: 06/09/2022 08:39:01 Power Lineman Date: 06/09/2022 15:33:57 Dictated By: DANIELE RIOS MD
== END 2022-06-09 11:15 | disposition home or self-care (01) ==
LOC: SDC 06:10
PROVIDERS: ATTEND Orthopaedic Surgery
DX: M75.102 Unspecified rotator cuff tear or rupture of left shoulder, not specified as traumatic (principal); M94.212 Chondromalacia, left shoulder
CPT/HCPCS: 23412; 29826; 82947; 87081; C1713

== ENCOUNTER → 2022-10-15 | Outpatient (CLI) | payer MEDICARE ==
--- NOTE | 2022-10-15 15:32 | Diagnostic Imaging Report ---
PROCEDURE: CT sinuses without contrast TECHNIQUE: Multiple contiguous axial images were obtained through the sinuses without the use of intravenous contrast. Coronal and sagittal reformations were then performed. Auto Exposure Controls were utilized during the CT exam to meet ALARA standards for radiation dose reduction. INDICATION: J34.89, Z22.322 FINDINGS: The frontal sinuses are clear. Frontoethmoidal recesses are clear. The ethmoid air cells are clear. The sphenoid sinuses are clear. The maxillary sinuses are clear. The mastoid air cells and middle ear cavities are clear. Extensive postsurgical changes within the cervical spine with posterior decompression and posterior fusion partially visualized. The patient is edentulous. Ileana bullosa of the right middle turbinate. Bilateral ostiomeatal complexes are patent. Minimal leftward nasal septal deviation. No temporomandibular joint dislocation. No acute facial fracture. The orbits are unremarkable. No intracranial midline shift or obstructive hydrocephalus. The muscles of mastication are unremarkable. Parapharyngeal fat is symmetric and well maintained. IMPRESSION: The paranasal sinuses are essentially clear without air-fluid level. Ileana bullosa of the right middle turbinate, though the bilateral ostiomeatal complexes remain patent. Extensive postsurgical changes within the cervical spine. Dictated by: Dictated on workstation # [id number]
== END ==
LOC: RAD FS 12:47
PROVIDERS: ATTEND Family Medicine
DX: J34.89 Other specified disorders of nose and nasal sinuses (principal); Z22.322 Carrier or suspected carrier of Methicillin resistant Staphylococcus aureus
CPT/HCPCS: 70486

== ENCOUNTER → 2022-11-12 | Outpatient (CLI) | payer MEDICARE, MEDICAID ==
[~2022-11-12] VITALS: Ht 165.5 cm; Wt 85.0 kg
[~2022-11-12] MED LIST changes: +ATOG60TA PO; +LEVO-131 PO; +METO-352 PO; +MRTZ30T1 PO; +MV-M1TAB57 PO; +QUET100T PO
--- NOTE | 2022-11-12 10:45 | Physical Therapy Pre-Op Eval ---
PT Pre-Surgical Assessment Type of Surgery Type of Surgery: right TKR Prior Level of Function Current Living Status: Alone Locomotion (Upon Admit): Independent Subjective Home: Apartment Current Living Status: Alone Entry Into Home: Level Entry Motor Control Motor Control: Motor Control WNL ROM ROM: WFL Strength Strength: WFL Transfers Transfers (B, C, W/C) (FIM): 6 Gait Gait (FIM): 6 Gait Distance (FIM): 6 Distance: >300' Gait Assistive Device: None Treatment Rendered Treatment: Patient instructed in assistive device, supported ambulation. Patient instructed in and given written program of ROM and strengthening exercises to be preformed post-op. Patient instructed in movement precautions where applicable. Patient demonstrates understandings of post-operative therapy protocol including gait pattern and exercise program. Pre-operative instruction completed; await physical therapy orders after surgery. Treatment Goal Met: Yes Assessment Goals Acheived: I Ambulation w/ FWW, Understands P-op Precaut Charges/GCodes Time In: 1010 Time Out: 1018 Total Billed Treatment Time: 8 Total Billed Treatment 1 visit Educ 8 min YOLA MCMILLAN PT Nov 12, 2022 10:45
[2022-11-12 11:24] LABS: BILIRUBIN,URINE NEGATIVE (NEGATIVE); CLARITY,URINE CLOUDY; COLOR,URINE YELLOW; GLUCOSE, URINE (UA) NEGATIVE (NEGATIVE); KETONES,URINE NEGATIVE (NEGATIVE); LEUKOCYTE ESTERASE ,URINE NEGATIVE (NEGATIVE); NITRITE,URINE NEGATIVE (NEGATIVE); PH,URINE 5.5 (5-9); PROTEIN,URINE NEGATIVE (NEGATIVE)
[2022-11-12 11:33] LABS: BASOPHILS # (AUTO) 0.1 10^3/uL (0.0-0.1); BASOPHILS % (AUTO) 1 % (0-10); EOSINOPHILS # (AUTO) 0.2 10^3/uL (0.0-0.3); EOSINOPHILS % (AUTO) 3 % (0-10); HEMATOCRIT 39 % (35-52); HEMOGLOBIN 13.2 g/dL (11.5-16.0); LYMPHOCYTES # (AUTO) 2.5 10^3/uL (1.0-4.0); LYMPHOCYTES % (AUTO) 35 % (12-44); MEAN CORPUSCULAR HEMOGLOBIN 31 pg (25-34); MEAN CORPUSCULAR HGB CONC 34 g/dL (32-36); MEAN CORPUSCULAR VOLUME 91 fL (80-99); MEAN PLATELET VOLUME 9.1 fL (9.0-12.2); MONOCYTES # (AUTO) 0.5 10^3/uL (0.0-1.0); MONOCYTES % (AUTO) 8 % (0-12); NEUTROPHILS # (AUTO) 3.9 10^3/uL (1.8-7.8); NEUTROPHILS % (AUTO) 54 % (42-75); PLATELET COUNT 282 10^3/uL (130-400); WHITE BLOOD COUNT 7.2 10^3/uL (4.3-11.0)
[2022-11-12 11:41] LABS: BACTERIA,URINE NEGATIVE /HPF; WBC,URINE RARE /HPF
[2022-11-12 11:45] LABS: INR 0.9 (0.8-1.4); PROTHROMBIN TIME PATIENT 12.7 SEC (12.2-14.7)
[2022-11-12 11:49] LABS: ALBUMIN 4.3 GM/DL (3.2-4.5); POTASSIUM 4.1 MMOL/L (3.6-5.0)
[2022-11-12 11:50] LABS: CALCIUM 9.4 MG/DL (8.5-10.1)
[2022-11-12 11:53] LABS: BILIRUBIN,TOTAL 0.4 MG/DL (0.1-1.0)
[2022-11-12 11:55] LABS: CREATININE SERUM 0.81 MG/DL (0.60-1.30)
[2022-11-12 12:06] LABS: ERYTHROCYTE SEDIMENTATION RATE 14 MM/HR (0-30)
--- NOTE | 2022-11-12 17:09 | Diagnostic Imaging Report ---
INDICATION: PREOP RIGHT TKA. COMPARISON: 06/18/2021. FINDINGS: Frontal and lateral views of the chest demonstrate normal heart size and pulmonary vascularity. The lungs are clear. There are no signs of infiltrate, pleural effusions or pneumothoraces. The visualized osseous structures show no acute abnormalities. IMPRESSION: 1. No acute process. No signs of infiltrates, effusions or pneumothoraces. Dictated by: Dictated on workstation # [id number]
== END ==
LOC: PREOP 05:35
PROVIDERS: ATTEND Orthopaedic Surgery
DX: M17.11 Unilateral primary osteoarthritis, right knee (principal)
CPT/HCPCS: 36415; 71046; 80053; 81000; 85025; 85610; 85652; 86850; 86900; 86901; 87081

== ENCOUNTER 2022-11-24 06:06 | Inpatient (IN) | payer MEDICARE, MEDICAID ==
--- NOTE | 2022-11-10 18:26 | HISTORY AND PHYSICAL ---
DATE OF SERVICE: 11/24/2022 ADMISSION HISTORY AND PHYSICAL DATE OF ADMISSION: 11/24/2022. This will be for inpatient admission on 11/24/2022 for right total knee arthroplasty. The patient will require regular inpatient admission due to comorbidities, need for physical therapy, gait abnormalities, and pain management. HISTORY OF PRESENT ILLNESS: The patient is a 62-year-old female with a longstanding progressive right knee pain in 1999. She underwent an OATS procedure on her right knee and she has undergone treatment with multiple injections as well as anti-inflammatories and rest, but reports progressive loss of function. She reports swelling, pain and stiffness in her knee. She reports no new injuries. She denies radicular symptoms. Radiographs reveal moderate medial and patellofemoral joint space narrowing with sclerosis noted in the medial femoral condyle with flattening. Due to functional impairment and failure to improve with conservative measures, the patient elected to proceed with surgical intervention. REVIEW OF SYSTEMS: No chest pain and no shortness of breath. No dysuria. PAST MEDICAL HISTORY: Anemia, anxiety, arthritis, asthma, chronic Lyme disease, bladder spasms, hiatal hernia, hypothyroidism, depression, migraines, reflux, hiatal hernia, tachycardia, history of MRSA, fibromyalgia, and sleep apnea. PAST SURGICAL HISTORY: Left ulna, right knee arthroscopy, right shoulder, left rotator cuff, bilateral carpal tunnel releases, cholecystectomy, tubal ligation, and left rotator cuff repair. FAMILY HISTORY: Significant for Alzheimer's disease, cancer, arthritis, asthma, diabetes, and hypertension. PRIMARY CARE PROVIDER: Dr. Ochoa. MEDICATIONS: Cymbalta, buspirone, levothyroxine, metformin, Nexium, potassium, Wellbutrin, prednisone, lisinopril, simvastatin, tramadol, and hydrocodone. ALLERGIES: CODEINE and IODINE. SOCIAL HISTORY: The patient denies tobacco and alcohol use. PHYSICAL EXAMINATION: GENERAL: The patient is well-developed, well-nourished, and in no acute distress. HEENT: Normocephalic and atraumatic. Pupils are equal, round, and reactive to light. Oropharynx is clear. NECK: Supple. No lymphadenopathy. LUNGS: Clear to auscultation bilaterally. HEART: Regular rate and rhythm. ABDOMEN: Soft, nontender, and nondistended. EXTREMITIES: Right knee demonstrates poor quad tone. Her patella tracks well. There is no varus or valgus laxity. She is tender along her medial femoral condyle. She has a slight effusion. Range of motion is well maintained at 0/2/125. Negative straight leg raise. No pain with hip range of motion. IMPRESSION: Right knee osteoarthritis, unresponsive to conservative measures. PLAN: Right total knee arthroplasty. The risks, benefits, options, ramifications and recovery have been discussed at length with the patient. She understands and wishes to proceed. This will be for inpatient admission on 11/24/2022 for right total knee arthroplasty. Job ID: [id number] DocumentID: [id number] Dictated Date: 11/08/2022 11:58:10 Head Miller Date: 11/08/2022 13:27:00 Dictated By: FAN LEZAMA MD
[2022-11-24] VITALS (13 sets, daily range): BP systolic 117–141; BP diastolic 55–80
[~2022-11-24] VITALS: Ht 165.5 cm; Wt 93.7 kg
--- OUTSIDE RECORDS SUMMARY | 2022-11-24 06:09 | XMS REPORT | Encounter Summary ---
Author Author [facility] Organization [facility] Address Unknown Phone Unavailable Care Team Providers Care Rehabilitation Specialist Name Role Phone Self, Donnell SEE PCP Encounter Details Care Team Description Date Type Department Florecita Wilburn NP [address] [address] Migraine without aura and without status migrainosus, not intractable 10/27/2022 Orders Only [facility] Neurol ogy [address] [facility] [address] [place] [address] Social History Date Tobacco Use Types Packs/Day Years Used Smoking Tobacco: Never Smokeless Tobacco: Never Comments Alcohol Use Standard Drinks/Week Never 0 (1 standard drink = 0.6 o z pure alcohol) Alcohol Habits Answer Date Recorded How often do you have a drink containing alcohol? Never 11/06/2020 How many drinks containing alcohol do you have on No t asked a typical day when you are drinking? How often do you have six or more drinks on one Not asked occasion? Sex Assigned at Date Recorded Not on file documented as of this encounter Plan of Treatment Care Team Description Date Type Specialty Florecita Wilburn NP [address] [address] 12/02/2022 Video Visit Neurology Daniele Richardson MD [address] [address] 12/07/2022 Office Visit Neurology documented as of this encounter Visit Diagnoses Diagnosis Migraine without aura and without statu s migrainosus, not intractable documented in this encounter Care Teams Start Date End Date Rehabilitation Specialist Relationship Specialty 08/13/21 Donnell Ochoa MD PCP - General [address] [phone] documented as of this encounter
--- OUTSIDE RECORDS SUMMARY | 2022-11-24 06:09 | XMS REPORT | Encounter Summary ---
Author Author [facility] Organization [facility] Address Unknown Phone Unavailable Care Team Providers Care Caser Name Role Phone Self, Donnell SEE PCP Reason for Visit * Reason Onset Date Comments Medication Prior 10/27/2022 PRIOR AUTH QULIPTA 60mg Authorization Encounter Details Care Team Description Date Type Department Florecita Wilburn NP [address] [facility] [address] [place], [place] [id number] Medication Prior Authorization (PRIOR AU TH QULIPTA 60mg ) 10/27/2022 Telephone [facility] [address] [facility] [address] [place] [address] Social History Date Tobacco Use Types Packs/Day [...] on file documented as of this encounter Miscellaneous Notes * Telephone Encounter - Silvano Bentley LPN - 10/27/2022 9:24 AM CST QULIPTA APPROVED but only for 30 days at a time The drug above is APPROVED for/through 11/27/2023 for up to a 30-day supply by t althea [facility]ars[employer]'s Non-Formulary Exceptions Pharmacy Coverage Policy. You asked for a 90 day supply. Page 5 of your Prescription Drug Guide (PDG) says that some drugs are limited to a 30-day supply. Due to this drugs cost, your plan only allows up to a 30-day supply of this drug per fill. You can view your PDG and see a full list of in-network pharmacies by visiting us online or call the number on the back of your card. R UNION BUSINESS REPRESENTATIVE * Telephone Encounter - Silvano Bentley LPN - 10/27/2022 9:01 AM CST PA started on CMM for Qulipta 60mg [id number] R UNION BUSINESS REPRESENTATIVE documented in this encounter Plan of Treatment Care Team Description Date Type Specialty Florecita Wilburn NP [address] [address] 12/02/2022 Video Visit Neurology Daniele Richardson MD [address] [address] 12/07/2022 Office Visit Neurology documented as of this encounter Visit Diagnoses Not on filedocumented in this encounter Care Teams Start Date End Date Caser Relationship Specialty 08/13/21 Donnell Ochoa MD PCP - General Family [address] [place] [phone] documented as of this encounter
--- OUTSIDE RECORDS SUMMARY | 2022-11-24 06:09 | XMS REPORT | Clinical Summary ---
Author Author [facility] Organization [facility] Address Unknown Phone Unavailable Care Team Providers Care Neon Sign Maker Name Role Phone Self, Donnell SEE PCP Allergies Comments Active Allergy Reactions Severity Noted Date Codeine Hives, High 03/09/2013 Hallucination s Divalproex Hallucination High 09/06/2019 s Slight SOB, Injection site welts Galcanezumab-Gnlm Itching Low 05/05/2022 Iodinated Contrast- Oral Rash, High 09/10 And Iv Dye Blisters Povidone-Iodine Rash Low 03/09/2013 Seasonal Allergies Low 08/27/2019 Medications End Date Status Medication Sig Dispensed Refills Start Date Active busPIRone (BUSPAR) 10 MG Take 10 mg by 0 08/21 tabletIndications: mouth 3 9 generalized anxiety (three) times disorder a day. Active cyclobenzaprine Take 10 mg by 0 (FLEXERIL) 10 MG tablet mouth 3 (three) times a day. Active DULoxetine (CYMBALTA) 60 Take 60 mg by 0 mg capsule mouth 2 (two) times a day. Active esomeprazole (NEXIUM) 40 Take 40 mg by 0 06/01 MG capsule mouth daily. 9 Active lisinopril-hydrochlorothi Take 1 tablet 0 azide [...] 2 tablet (two) times a day. Active fexofenadine (MARIAN Take 180 mg 0 ALLERGY) 180 MG tablet by mouth daily. Active Lidocaine (LIDODERM) 5 % Place 1 patch 0 patch on the skin every 24 hours. Remove & Discard patch within 12 hours or as directed by Active lidocaine HCl 1 % Lotn Apply 0 topically. Active clonazePAM (KLONOPIN) 0.5 Take 0.5 mg 0 09/30 MG tablet by mouth 3 0 (three) times a day. Active amoxicillin (AMOXIL) 500 0 MG capsule 0 Active traMADoL (ULTRAM) 50 mg Take 50 mg by 0 tablet mouth as 0 needed. Active triazolam (HALCION) 0.25 0 MG tablet 0 Active gabapentin (NEURONTIN) Take 100 mg 0 02 100 MG capsule by mouth 3 1 (three) times a day. Active ibuprofen (ADVIL,MOTRIN) Take 800 mg 0 800 MG tablet by mouth every 6 (six) hours as needed. Active lisinopriL Take 20 mg by 0 (PRINIVIL,ZESTRIL) 20 MG mouth daily. 1 tablet Active multivitamin (THERAGRAN) Take 1 tablet 0 per tablet by mouth daily. Active omeprazole (PRILOSEC) 20 Take 20 mg by 0 MG capsule mouth daily. Active naltrexone (DEPADE) 50 mg Take 25 mg by 0 tablet mouth daily. Active metoprolol succinate Take 100 mg 0 (TOPROL-XL) 100 MG 24 hr by mouth 1 tablet daily. Active cholecalciferol, vitamin Take 50,000 0 10/21 D3, 1,250 mcg (50,000 Units by 1 unit) capsule mouth weekly. Active SUDOGEST 30 mg tablet 0 1 Active EUTHYROX 125 mcg tablet Take 125 mcg 0 by mouth 1 daily. Active QUEtiapine (SEROQUEL) 100 Take 200 mg 0 09/30 MG tablet by mouth 1 nightly. Active amoxicillin-clavulanate amoxicillin 0 (AUGMENTIN) 875-125 mg 875 per tablet mg-potassium clavulanate 125 mg tablet Active mupirocin (BACTROBAN) 2 % 1 application 22 g 3 ointment to affected 1 area Additional Information Patient taking differently: Topical As needed, (No instructions reported), Reported on 01/06/2022 Active ketotifen (ZADITOR) 0.025 Administer 1 0 /0 % (0.035 %) ophthalmic drop to eye 2 solution as needed. Active cholecalciferol, vitamin Take 3,000 0 D3, (VITAMIN D3 ORAL) Units by mouth daily. Active cyclobenzaprine Take 10 mg by 0 (FLEXERIL) 10 MG tablet mouth 3 (three) times a day. Active predniSONE (DELTASONE) 10 30 mg x1 day 9 tablet 0 MG tabletIndications: then 20 mg x2 2 Allergic reaction, days then 10 initial encounter mg x2 days 10/27/2023 Active atogepant (QULIPTA) 60 mg Take 1 tablet 30 tablet 11 tabletIndications: (60 mg total) 2 Migraine without aura and by mouth without status daily. migrainosus, not intractable 10/26/2022 Discontinued (Alternate ther apy) atogepant 30 mg Take 30 mg by 30 tablet 5 08/31/20 2 TabIndications: Migraine mouth daily. 2 without aura and without status migrainosus, not intractable 10/27/2022 Discontinued atogepant (QULIPTA) 60 mg Take 1 tablet 90 tablet 1 tabletIndications: (60 mg total) 2 Migraine without aura and by mouth without status daily. migrainosus, not intractable Active Problems Problem Noted Date Choking sensation 11/17/2021 Nasal crusting 11/17/2021 Dysphagia 11/17/2021 Encounter for preprocedure screening laboratory testi ng for COVID-19 11/17/2021 Bone spur 11/17/2021 Numbness and tingling of left side of face 1 Concussion with no loss of consciousness 11/17/2021 Chronic fatigue 07/28/2021 H/o Lyme disease 07/28/2021 S/P cervical spinal fusion 10/04/2019 Cervical cord compression with myelopathy 09/18/2019 Cervical disc disease with myelopathy 08/27/2019 Overview: Added automatically from request for hetal feliz [id number] Nonintractable headache 03/07/2018 Left wrist sprain, subsequent encounter 01/27/2018 Knee pain, bilateral 03/09/2013 Depression Anxiety Hypertension Arthritis History of methicillin resistant staphy lococcus aureus (MRSA) Eating disorder Vertigo Peptic ulcer Asthma Sleep apnea GERD (gastroesophageal reflux disease) Diabetes mellitus, type 2 Hypothyroid Encounters Care Team Description Date Type Specialty Florecita Wilburn NP Migraine without aura and without status migrainosus, not intractable 10/27/2022 Orders Only Neurology Florecita Wilburn NP Medication Prior Authorization (PRIOR AU TH QULIPTA 60mg ) 10/27/2022 Telephone Neurology Florecita Wilburn NP Migraine without aura and without status migrainosus, not intractable (Primary Dx) 10/26/2022 Orders Only Neurology Florecita Wilburn NP Headache 10/26/2022 Telephone Neurology Florecita Wilburn NP Medication questions 09/02/2022 Telephone Neurology Florecita Wilburn NP Migraine without aura and without status migrainosus, not intractable (Primary Dx) 08/31/2022 Video Visit Neurology Florecita Wilburn NP Medication Prior Authorization 08/31/2022 Telephone Neurology from Last 3 Months Immunizations Name Administration Dates Next Due Influenza QIV (IM) 10/16/2020, 09/04/2020, , 09/19/2019 (), 08/29/2017 Influenza QIV 09/04/2020 (recombinant) IM (egg free) Influenza, Seasonal, 12/08/2012 Injectable Moderna Sars-cov-2 (12+) 03/20/2021, 02/18/2021 Family History Medical History Relation Name Comments [...] Signs Reading Time Taken Comments Vital Sign 128/68 01/06/2022 10:43 AM MERCHANDISING EXECUTION MANAGER Blood Pressure 88 01/06/2022 10:43 AM MERCHANDISING EXECUTION MANAGER Pulse 35.8 C (96.5 F) 12/24/2021 2:36 PM MERCHANDISING EXECUTION MANAGER Temperature 16 09/22/2019 11:14 AM CDT Respiratory Rate 94% 09/22/2019 11:14 AM CDT Oxygen Saturation - - Inhaled Oxygen Concentration 87.5 kg (193 lb) 01/06/2022 10:43 AM MERCHANDISING EXECUTION MANAGER Weight 167.6 cm (5' 6") 01/06/2022 10:43 AM MERCHANDISING EXECUTION MANAGER Height 31.15 01/06/2022 10:43 AM MERCHANDISING EXECUTION MANAGER Body Mass Index Plan of Treatment Care Team Description Date Type Specialty Florecita Wilburn NP [address] [address] 12/02/2022 Video Visit Neurology Daniele Richardson MD [address] [address] 12/07/2022 Office Visit Neurology Health Maintenance Due Date Last Done Comments Colonoscopy 1961 Colorectal Cancer 1961 Screening Diabetes Mellitus 1961 Hemoglobin A1C Diabetes Mellitus 1961 Ophthalmology Exam FIT-DNA 1961 Fecal Occult Blood or FIT 1961 Hepatitis C Screen 1961 Lipid Screening 1961 Medicare Annual Wellness 1961 Sigmoidoscopy 1961 Td/Tdap# 1961 Pneumococcal Vaccine: 1967 Pediatrics (0 to 5 Years) and At-Risk Patients (6 to 64 Years) (1 - PCV) Diabetes Mellitus Foot 1971 Exam Cervical Cancer Screening 1982 via Pap Smear Zoster Vaccine# (1 of 2) 2011 Mammogram Screening 08/26/2019 08/26/2017 Social Determinants of 11/28/2021 Health# COVID-19 Vaccine (5 - 08/23/2022 06/28/2022, Booster for Moderna 10/12/2021, series) 03/20/2021, Additional history exists Influenza Vaccine (#1) 2022 09/14/2021, 10/16/2020, 09/04/2020, Additional history exists Depression Screening 2026 08/27/2019 PHQ-9 # Medical Devices Device Identifier Shelf Expiration Date Model / Serial / L ot Implanted Type Area Manufactur er [id number] / / Implant Herberth 3.5mm X 70cm [id number] Non-Tissue N/A: Spine DEPUY - [id number] Implant Cervical SPINE Implanted: Qty: 2 on 09/18/2019 by Frank Morin MD at [facility] Device Identifier Shelf Expiration Date Model / Serial / L ot Explanted Type Area Manufactur er [id number] / / Implant Screw Ti Cortex Poly Axial Non-Tissue N/A: Spine DEPUY 3.5mm X 30mm [id number] - Implant Cervical SPIN E [id number] Explanted: Qty: 1 on 09/18/2019 by Frank Morin MD at [facility] Results Not on filefrom Last 3 Months Insurance Type Payer Benefit Subscriber ID Effective Phone Address Plan / Dates Group MEDICARE REPLACEMENT PLAN [employer] [id number] 2021-P BOX MEDICARE resent [id number] [place] [id number] Liberty Caballero Personal/F Self [address] [place] [address] Advance Directives For more information, please contact: [phone] Patient Neon Technician Explanation Type Date Recorded Perceptive Content Scan Power of Photography Instructor 09/18/2019 6:13 AM Date Inactivated Comments Code Status Date Activated 09/22/2019 7:51 PM Full Code 09/18/2019 4:30 PM Care Teams Start Date End Date Neon Sign Maker Relationship Specialty 08/13/21 Donnell Ochoa MD PCP - General [address] [phone]
--- OUTSIDE RECORDS SUMMARY | 2022-11-24 06:09 | XMS REPORT | Encounter Summary ---
Author Author [facility] Organization [facility] Address Unknown Phone Unavailable Care Team Providers Care Customer Success Director Name Role Phone Self, Donnell SEE PCP Encounter Details Care Team Description Date Type Department Florecita Wilburn NP [address] [address] Migraine without aura and without status migrainosus, not intractable (Primary Dx) 10/26/2022 Orders Only [facility] Neurol ogy [address] [place] [address] Social History Date Tobacco Use Types Packs/Day [...] Date Type Specialty Florecita Wilburn NP [address] [address] 12/02/2022 Video Visit Neurology Daniele Richardson MD [address] [id number] 12/07/2022 Office Visit Neurology documented as of this encounter Visit Diagnoses Diagnosis Migraine without aura and without statu s migrainosus, not intractable - Primary documented in this encounter Care Teams Start Date End Date Customer Success Director Relationship Specialty 08/13/21 Donnell Ochoa MD PCP - General [address] [phone] documented as of this encounter
--- OUTSIDE RECORDS SUMMARY | 2022-11-24 06:09 | XMS REPORT | Encounter Summary ---
Author Author [facility] Organization [facility] Address Unknown Phone Unavailable Care Team Providers Care Property Assessment Monitor Name Role Phone Self, Donnell SEE PCP Reason for Visit * Reason Onset Date Comments Headache 10/26/2022 Encounter Details Care Team Description Date Type Department Florecita Wilburn NP [address] [id number] Headache 10/26/2022 Telephone [facility] [place] [address] [place] [address] Social History Date Tobacco Use Types Packs/Day [...] encounter Miscellaneous Notes * Telephone Encounter - Suzanne Bonilla MA - 10/26/2022 9:23 AM CST Reports that Quvannesa is not working as she is having a daily headache. She would like to know if you have further recommendation. LV 08/31/22 [place] 12/02/21 Last recommndation : Liberty has a history of high-frequency episodic migraine, cu rrently improved on Aimovig. Unfortunately experiencing several side effects wi th Aimovig so we are going to discontinue. In place of Aimovig, we will try Qulipta 30 mg once daily TION OPERATIONS SPECIALIST documented in this encounter Plan of Treatment Care Team Description Date Type Specialty Florecita Wilburn NP [address] [address] 12/02/2022 Video Visit Neurology Daniele Richardson MD [address] [address] 12/07/2022 Office Visit Neurology documented as of this encounter Visit Diagnoses Not on filedocumented in this encounter Care Teams Start Date End Date Property Assessment Monitor Relationship Specialty 08/13/21 Donnell Ochoa MD PCP - [address] [phone] documented as of this encounter
--- OUTSIDE RECORDS SUMMARY | 2022-11-24 06:09 | XMS REPORT | Clinical Summary ---
Author Author [facility] Organization [facility] Address Unknown Phone Unavailable Care Team Providers Care Lard Renderer Name Role Phone Sanjeev Del Real MD Unavailable Mike Sprague DO PCP Eliud Tao MD Unavailable Lei Lundy MD Unavailable Source Comments Some departments are not documenting in the electronic medical record. If you d o not see the information that you expected, contact Release of Information in [facility] [employer] Information Management department at [phone] for further assistan ce in locating additional records.[facility] Allergies Comments Active Allergy Reactions Severity Noted [...] Tobacco: Never Comments Alcohol Use Standard Drinks/Week Not Asked 0 (1 standard drink = 0.6 o z pure alcohol) Sex Assigned at Date Recorded Not on file Obstetrics History Last Filed Vital Signs Reading Time Taken [...] 1982 BREAST CANCER SCREENING 2001 COLORECTAL CANCER 2006 SCREENING SHINGLES RECOMBINANT 2011 VACCINE (1 of 2) COVID-19 VACCINE (3 - 05/15/2021 03/20/2021, Booster for Moderna 02/18/2021 series) DEPRESSION SCREENING 11/28/2021 INFLUENZA VACCINE (#1) 2022 09/04/2020 Results Not on filefrom Last 3 Months Insurance Type Payer Benefit Subscriber ID Effective Phone Address Plan / Dates Group Medicare MEDICARE MEDICARE [id number] 2005-P [phone] [place] [address] Medicaid [employer] [place] [employer] [id number] 2010- [address] Present [address] [place] [phone] Care Teams Start Date End Date Lard Renderer Relationship Specialty 07/26/16 Mike Sprague DO PCP - General Family [facility] [place] [address] 03/09/13 Sanjeev Del Real MD Surgery, [address] [facility] [facility] [address] [place] [address] 07/26/16 Eliud Tao MD Surgery, [address] [facility] Spine [place], [place] [id number] 03/07/18 Lei Lundy MD Surgery, [address] [facility] [place] [address]
[2022-11-24] MEDS ORDERED: proPOfol 200 MG/20 ML (DIPRIVAN) VIAL IV ONE (06:42)
[2022-11-24] MEDS ORDERED: ONDANSETRON 4 MG/2 ML (SDV) Z0FRAN ONE (06:42)
[2022-11-24] MEDS ORDERED: fentaNYL INJ 100 MCG/2 ML AMP ONE ×2 (06:42→09:34)
[2022-11-24] MEDS ORDERED: LIDOCAINE PF 2% 5 ML (XYLOCAINE) VIAL ONE (06:42)
[2022-11-24] MEDS ORDERED: SEVOFLURANE (ULTANE) 15 ML INHAL SOLN ONE ×2 (06:42→08:48)
[2022-11-24] MEDS ORDERED: ROCURONIUM 10 MG/ML 5 ML SYRINGE IV ONE (06:42)
[2022-11-24] MEDS ORDERED: MIDAZOLAM 2 MG/2 ML (VERSED) VIAL ONE (06:42)
[2022-11-24] MEDS ORDERED: CEFUROXIME 1.5 GM/15 ML (ZINACEF) VIAL ONE (06:50)
[2022-11-24] MEDS ORDERED: LACTATED RINGERS 1,000 ML IV PRN (07:00)
[2022-11-24] MEDS ORDERED: CEFUROXIME INJECTION 1,500 MG in NS (IVPB) 50 ML IV ONE (07:00)
[2022-11-24] MEDS ORDERED: diphenhydrAMINE 50 MG/ML INJ (BENADRYL) IVP PRN (07:30)
[2022-11-24] MEDS ORDERED: morphine PCA 100 MG/100 ML BAG IV PRN (07:30)
[2022-11-24] MEDS ORDERED: oxyCODONE/APAP 5/325MG (PERCOCET 5) TABLET PO PRN (07:30)
[2022-11-24] MEDS ORDERED: ONDANSETRON 4 MG/2 ML (SDV) Z0FRAN IVP PRN ×2 (07:30→09:30)
[2022-11-24] MEDS ORDERED: INTRA-ARTICULAR IU ONE ×5 (07:30)
--- NOTE | 2022-11-24 07:33 | Progress Note-Pre Operative ---
Pre-Operative Progress Note Date of Available H&P: Nov 08, 2022 Date H&P Reviewed: Nov 24, 2022 Time H&P Reviewed: 07:11 Changes from last HP none Pre-Operative Diagnosis: right knee primary osteoarthritis FAN LEZAMA MD Nov 24, 2022 07:33
--- NOTE | 2022-11-24 07:34 | Progress Note-Post Operative ---
Post-Operative Progess Note Surgeon (s)/Drawbridge Operator (s) Surgeon FAN LEZAMA MD Drawbridge Operator: Rivas Murry Pre-Operative Diagnosis right knee primary osteoarthritis Post-Operative Diagnosis right knee primary osteoarthritis Procedure & Operative Findings Date of Procedure 11/24/22 Procedure Performed/Findings right total knee arthroplasty Anesthesia Type GETA Estimated Blood Loss Estimated blood loss (mL): minimal Specimens/Packing Specimens Removed none Packing: none FAN LEZAMA MD Nov 24, 2022 07:34
--- NOTE | 2022-11-24 07:36 | D/C HH Face to Face Order ---
D/C Face to Face Orders Reconcile Patient Problems Problems Reviewed?: Yes Instructions for Patient Via [facility] Round, Patient Instructions/FollowUp: three weeks Physician to follow Patient: three weeks Discharge Diet for Home: Regular Diet Patient Data-Allergies,Ht & Wt Patient Allergies: Coded Allergies: iodine (Verified Allergy, Severe, BLISTERS, 11/24/22) codeine (Verified Adverse Reaction, Unknown, HALLUCINATIONS, 11/24/22) divalproex sodium (Verified Adverse Reaction, Unknown, HALLUCINATIONS, 11/24/22) Height (Feet): 5 Height (Inches): 6.00 Weight (Pounds): 160 Home Health Need/Face to Face Date of Face to Face: Nov 24, 2022 Clinical Findings: Muscle weakness, Pain with ambulation, Unsteady gait I have seen Pt vnkq-ri-obbd: Yes Discharged To: Home Diagnosis/Conditions: right total knee arthroplasty Patient is Homebound due to: Muscle weakness, Pain w/ambulation Homebound Status Due to the above stated illness, injury or surgical procedure (medical condition or diagnosis) and associated clinical findings, the patient is homebound because of his/her inability to leave home except with aid of a supportive device and/or person AND leaving the home requires a considerable and taxing effort or is medically contraindicated. Pt req the following assistanc: [facility] Nursing Orders Home Health Services Order: Physical Therapy-Evaluate & Treat DC right knee efra and apply steri strips 12/08/22 Home Health Infusion Therapy Line Start Date: Nov 24, 2022 Therapy Orders Therapy Orders: Physical Therapy, PT to assess for OT Therapy Specific Orders: Eval assistive deivces, Teach enviro modifications/safety, Gait training, Increase strength/endurance, Provider maintenance therapy, Restore ROM Certify Stmt I certify that this patient is under my care and that I, a nurse practitioner or a physician; a access services assistant working with me, had a face to face encounter that - meets the physician face to face encounter requirements with this patient as dated. FAN LEZAMA MD Nov 24, 2022 07:36
[2022-11-24] MEDS ORDERED: ROPIVACAINE 5MG/ML 30ML VIAL ONE (08:48)
[2022-11-24] MEDS ORDERED: fentaNYL INJ 100 MCG/2 ML AMP IVP ONE (09:30)
[2022-11-24] MEDS ORDERED: MEPERIDINE (DEMEROL) INJ 50 MG/ML IVP ONE (09:30)
--- NOTE | 2022-11-24 09:33 | Diagnostic Imaging Report ---
INDICATION: Postoperative knee replacement TECHNIQUE: 2 post operative radiographs of the knee 9:27 AM CORRELATION STUDY: None FINDINGS: There are postsurgical changes of a total knee arthroplasty. Alignment is anatomic. Installed hardware appearing unremarkable. Overlying soft tissue gas collections and skin efra are present. IMPRESSION: Postsurgical changes of a right total knee replacement. Dictated by: Dictated on workstation # [id number]
[2022-11-24] MEDS ORDERED: NS IV 1000 ML 1,000 ML ONE (10:28)
[2022-11-24] MEDS ORDERED: morphine PCA 100 MG/100 ML BAG IV ONE (10:28)
[2022-11-24] MEDS ORDERED: NALOXONE 0.4 MG/ML 1 ML (NARCAN) VIAL IV PRN (10:30)
[2022-11-24] MEDS: NS IV 1000 ML 1,000 ML IV SCH ×3 (10:54→23:10)
--- NOTE | 2022-11-24 11:10 | Progress Note ---
Standard Progress Note Progress Notes/Assess & Plan Date Seen by a Provider: Nov 24, 2022 Time Seen by a Provider: 09:30 Progress/Assessment & Plan jpost op check no complaints radiographs--HW well positioned without fracture RLE--intact DF and PF of toes and ankle sensation intact to light touch throughtout 2 plus DP pulse with brisck cap refill s/p RTKA mobilize as able FAN LEZAMA MD Nov 24, 2022 11:10
[2022-11-24] MEDS ORDERED: FLU QUADRIvalent (6 months+) 60 mcg/0.5 ml 2022-23 (Fluzone) IM ONE (11:15)
[2022-11-24] MEDS: SENNA W/DOCUSATE (SENOKOT S) TABLET PO SCH ×2 (11:24→20:09)
[2022-11-24] MEDS ORDERED: MULT-1136 PO (11:27)
[2022-11-24] MEDS ORDERED: TRM50T PO (11:28)
[2022-11-24] MEDS ORDERED: DULO60CA59 PO (11:44)
[2022-11-24] MEDS ORDERED: LISI10TA25 PO (11:44)
[2022-11-24] MEDS ORDERED: QUET100T33 PO (11:44)
[2022-11-24] MEDS: oxyCODONE/APAP 10/325MG (PERCOCET 10) TABLET PO PRN ×2 (12:32→20:08)
--- NOTE | 2022-11-24 13:33 | Physical Therapy Evaluation ---
PT Evaluation-General Medical Diagnosis Admission Date Nov 24, 2022 at 06:06 Medical Diagnosis: right TKA Onset Date: Nov 24, 2022 Therapy Diagnosis Therapy Diagnosis: impaired mobility, ROM Height/Weight Height (Feet): 5 Height (Inches): 6.00 Weight (Pounds): 160 Precautions Precautions/Isolations: Fall Prevention, Standard Precautions Weight Bear Status Right Lower Extremity: Right Weight Bearing/Tolerated Left Lower Extremity: Left Full Weight Bearing Referral Physician: Jeanmarie Reason for Referral: Evaluation/Treatment Medical History Additional Medical History PAST MEDICAL HISTORY: Anemia, anxiety, arthritis, asthma, chronic Lyme disease, bladder spasms, hiatal hernia, hypothyroidism, depression, migraines, reflux, hiatal hernia, tachycardia, history of MRSA, fibromyalgia, and sleep apnea. PAST SURGICAL HISTORY: Left ulna, right knee arthroscopy, right shoulder, left rotator cuff, bilateral carpal tunnel releases, cholecystectomy, tubal ligation, and left rotator cuff repair. Reviewed History: Yes Social History Current Living Status: Alone Entry Into Home: Level Entry Prior Prior Level of Function SCALE: Activities may be completed with or without assistive devices. 2-Wneffxhjlb-dicthfs completes the activity by him/herself with no assistance from a helper. 5-Set-up or Clean-up Assistance-helper sets up or cleans up; patient completes activity. Epes assists only prior to or following the activity. 4-Supervision or Touching Assistance-helper provides verbal cues and/or touching/steadying and/or contact guard assistance as patient completes activity. Assistance may be provided throughout the activity or intermittently. 3-Partial/Moderate Assistance-helper does LESS THAN HALF the effort. Epes lifts, holds or supports trunk or limbs, but provides less than half the effort. 2-Substantial/Maximal Assistance-helper does MORE THAN HALF the effort. Epes lifts or holds trunk or limbs and provides more than half the effort. 0-Jhcgbemqk-rxuaar does ALL the effort. Patient does none of the effort to complete the activity. Or, the assistance of 2 or more helpers is required for the patient to complete the activity. If activity was not attempted, code reason: 7-Patient Refused. 9-Not Applicable-not attempted and the patient did not perform the activity bef ore the current illness, exacerbation or injury. 10-Not Attempted due to Environmental Limitations-(lack of equipment, weather r estraints, etc.). 88-Not Attempted due to Medical Conditions or Safety Concerns. Bed Mobility: 6 Transfers (B,C,W/C): 6 Gait: 6 Stairs: 6 Indoor Mobility (Ambulation): Independent Stairs: Independent PT Evaluation-Current Subjective Patient in bed pre tx, agrees to PT, has no pain, states her knee is numb but has sensation in her foot. Pt/Family Goals to be independent at home Objective Patient Orientation: Person, Place, Situation Attachments: IV ROM/Strength ROM Lower Extremities right knee extension +2 degrees, flexion 90 degrees Sensory Hearing: Functional Transfers Roll Left to Right (QC): 4 Sit to Lying (QC): 4 Lying to Sitting/Side of Bed(Q: 4 Sit to Stand (QC): 4 Chair/Vux-ie-Gzwzj Xfer(QC): 4 SBA for rolling and supine <-> sit, CGA for sit to stand, cues for positioning, slight momentary dizziness upon sitting Gait Walk 10 feet (QC): 4 Walk 50 ft with 2 Turns(QC): 4 Distance: 100' Gait Assistive Device: FWW Comments/Gait Description slow but steady ambulation, good step through and heel strike, slight limp, CGA Balance Sitting Static: Normal Sitting Dynamic: Normal Standing Static: Good Standing Dynamic: Good Treatment RLE total knee protocol x10 (AP, QS, HS, SAQ, SLR) Assessment/Needs Patient in bed post tx with nurse call, phone, tray, all needs met. Patient has impaired mobility and ROM but only needed CGA for sit to stand and during ambulation Rehab Potential: Fair PT Care Home Goals Cable Spooler Goals PT Care Home Goals Time Frame: Dec 01, 2022 Roll Left & Right (QC): 6 Sit to Lying (QC): 6 Lying-Sitting on Side/Bed(QC): 6 Sit to Stand (QC): 6 Chair/Hep-ep-Pqite Xfer(QC): 6 Walk 10 feet (QC): 6 Walk 50ft with 2 Turns (QC): 6 Walk 150 ft (QC): 6 PT Plan Problem List Problem List: Activity Tolerance, Functional Strength, Safety, Balance, Gait, Transfer, Bed Mobility, ROM Treatment/Plan Treatment Plan: Continue Plan of Care Treatment Plan: Bed Mobility, Education, Functional Activity Tamara, Functional Strength, Gait, Safety, Therapeutic Exercise, Transfers Treatment Duration: Dec 01, 2022 Frequency: 11 times per week Estimated Hrs Per Day: .25 hour per day Patient and/or Family Agrees t: Yes Safety Risks/Education Patient Education: Gait Training, Transfer Techniques, Correct Positioning, Safety Issues Teaching Recipient: Patient Teaching Methods: Demonstration, Discussion Response to Teaching: Reinforcement Needed Discharge Recommendations Plan Patient will perform bed mobility and transfer training, balance and endurance training, functional strengthening, stair training, gait training, and education, to improve functional mobility and independence at home. Therapy Discharge Recommendati: Home & Family, Post Acute PT Time Time In: 1252 Time Out: 1310 DATE: Nov 24, 2022 Total Billed Treatment Time: 18 Total Billed Treatment 1 visit EVL 18' ARSENIO STUBBS PT Nov 24, 2022 13:33
[2022-11-24] MEDS: busPIRone 10 MG (BUSPAR) TAB PO SCH ×2 (13:37→20:09)
[2022-11-24] MEDS: GABAPENTIN 100 MG (NEURONTIN) CAP PO SCH ×2 (13:37→20:09)
[2022-11-24] MEDS: CYCLOBENZAPRINE 10 MG (FLEXERIL) TAB PO PRN ×2 (13:41→20:16)
[2022-11-24] MEDS: CEFUROXIME INJECTION 750 MG in NS (IVPB) 50 ML IV SCH ×2 (15:17→23:10)
--- NOTE | 2022-11-24 15:19 | Consultation - Hospitalist ---
HPI History of Present Illness: HPI/Chief Complaint Chief complaint: Medical management following right knee replacement by Dr. Rios HPI: This is a 62-year-old female who underwent an uncomplicated right knee replacement by Dr. Rios. She reports minimal pain and all medications were restarted. She denies any nausea. Home meds reviewed. We will monitor patient closely for any postoperative complications. Source: patient Exam Limitations: no limitations Date Seen 11/24/22 Attending Physician Donnell Ochoa MD PCP Admitting Physician: Daniele Rios MD Attending Physician: Daniele Rios MD Referring Physician Date of Admission Nov 24, 2022 at 06:06 Home Medications & Allergies Home Medications Reviewed patient Home Medication Reconciliation performed by pharmacy medication reconciliations gas technician and/or nursing. Patients Allergies have been reviewed. Allergies Allergies Coded Allergies iodine (Verified Allergy, Severe, BLISTERS, 11/24/22) povidone-iodine (Verified Allergy, Unknown, RASH, 11/24/22) galcanezumab-gnlm (Verified AllergyItching, 11/24/22) codeine (Verified Adverse Reaction, Unknown, HALLUCINATIONS, 11/24/22) divalproex sodium (Verified Adverse Reaction, Unknown, HALLUCINATIONS, 11/24/22) Uncoded Allergies IODINATED CONTRAST- ORAL AND IV DYE ( AllergyRash, 11/24/22) Past Nqzlveh-Wslevn-Lramjs Hx Patient Social History Marrital Status: single Employed/Student: unemployed Tobacco Use?: No Smoking Status: Never a Smoker Smokeless Tobacco Frequency: Never a User Use of E-Cig and/or Vaping dev: No Use of E-Cig and/or Vaping Josemanuel: Never a User Substance use?: No Alcohol Use?: No Pt feels they are or have been: No Immunizations Up To Date Date of Influenza Vaccine: Sep 04, 2022 First/Initial COVID19 Vaccinat: 2020 Second COVID19 Vaccination Reece: 2020 Tetanus Booster (TDap): Unknown Hepatitis A: No Hepatitis B: No PED Vaccines UTD: Yes Seasonal Allergies Seasonal Allergies: Yes Current Status status: No status: No Advance Directives: No Advance Directive Location: Unable to obtain copy Communicates: Verbally Primary Language: Greek Preferred Spoken Language: Greek Is interpretation needed?: No Sensory deficits: Vision impairment Implanted or Applied Medical D: Orthopedic hardware Past Medical History Surgeries: Adenoidectomy, Gallbladder, Orthopedic, Tonsillectomy, Tubal Ligation Asthma Currently Using CPAP: No Currently Using BIPAP: No High Cholesterol, Hypertension, Irregular Heartbeat Headaches /Migraines 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 Sexually Transmitted Disease: No Chronic Constipation Arthritis, Fibromyalgia Hypothyroidsim, Diabetes, Non-Insulin dep Anxiety, Depression Blood Disorders: No Review of Systems Constitutional: see HPI EENTM: no symptoms reported Respiratory: no symptoms reported Cardiovascular: no symptoms reported Gastrointestinal: no symptoms reported Genitourinary: no symptoms reported Musculoskeletal: back pain, joint pain Skin: no symptoms reported Psychiatric/Neurological: No Symptoms Reported All Other Systems Reviewed Negative Unless Noted: Yes Physical Exam Physical Exam Vital Signs Vital Signs - First Documented Capillary Refill : Height, Weight, BMI Height: 5'6.00" Weight: 160lbs. oz. [id number]; 34.20 BMI Method:Stated General Appearance: No Apparent Distress, WD/WN, Chronically ill Eyes: Bilateral Eye Normal Inspection, Bilateral Eye PERRL HEENT: PERRL/EOMI, Normal ENT Inspection, Pharynx Normal Neck: Full Range of Motion, Normal Inspection, Non Tender, Supple, Carotid Bruit Respiratory: Chest Non Tender, Lungs Clear, Normal Breath Sounds, No Accessory Muscle Use, No Respiratory Distress Cardiovascular: Regular Rate, Rhythm, No Edema, No Gallop, No JVD, No Murmur, Normal Peripheral Pulses Gastrointestinal: Normal Bowel Sounds, No Organomegaly, No Pulsatile Mass, Non Tender, Soft Back: Normal Inspection, No CVA Tenderness, No Vertebral Tenderness Extremity: Normal Capillary Refill, Normal Inspection, Normal Range of Motion (Except right leg), Non Tender, No Calf Tenderness, No Pedal Edema Neurologic/Psychiatric: Alert, Oriented x3, No Motor/Sensory Deficits, Normal Mood/Affect Skin: Normal Color, Warm/Dry Lymphatic: No Adenopathy Results Results/Procedures Labs Patient resulted labs reviewed. Assessment/Plan Assessment and Plan Assess & Plan/Chief Complaint Assessment: Status post right knee replacement postop day #0 Hypothyroidism Fibromyalgia Depression Plan: Supportive care Monitor closely Home meds Diagnosis/Problems Diagnosis/Problems (1) Osteoarthritis of right knee (2) Anxiety state Status: Acute SHANE PERRIN DO Nov 24, 2022 15:19
--- NOTE | 2022-11-24 17:07 | OPERATIVE REPORT ---
DATE OF SERVICE: 11/24/2022 PREOPERATIVE DIAGNOSIS: Right knee primary osteoarthritis. POSTOPERATIVE DIAGNOSIS: Right knee primary osteoarthritis. PROCEDURE: Right total knee arthroplasty. SURGEON: Daniele Lezama M.D. DISPLAYER: Rivas Murry, who assisted throughout the procedure and closed the incision. ANESTHESIA: General endotracheal by Rivas Coleman CRNA. TOURNIQUET TIME: 70 minutes at 300 mmHg. ESTIMATED BLOOD LOSS: Minimal. DRAINS: None. COMPLICATIONS: None. POSTOPERATIVE PLAN: Routine total knee arthroplasty protocol. The patient was transferred to the recovery room awake and stable condition. MATERIALS: MicroPort cemented size 3 femur, cemented size 3 tibia with 10 mm insert and a cemented size 32 patellar button. STATEMENT OF MEDICAL NECESSITY: The patient is a 62-year-old female with complaints of progressively worsening right knee pain. Radiographs revealed severe medial and patellofemoral arthrosis. She has undergone treatment with multiple procedures in the past with only temporary relief of her symptoms. Due to progressive symptoms and loss of function, the patient elected to proceed with surgical intervention. DESCRIPTION OF PROCEDURE: After risks and benefits of procedure were discussed and questions were answered and informed consent was signed and placed on the chart. The operative site was confirmed. The prep in holding and initialed by surgeon. The patient was then transported to the operating room and after adequate level of general endotracheal anesthetic were obtained, a timeout was called, confirming the operative site. The right lower extremity was prepped and draped in the usual sterile fashion with the leg elevated and the knee flexed, tourniquet was inflated to 300 mmHg. Standard anterior approach was utilized. Her previous incision site was utilized for the incision as well. Then the underlying soft tissues were carefully dissected. A medial parapatellar arthrotomy was performed using the previous arthrotomy site and removing the previous sutures. A subperiosteal release was then carefully performed on the proximal medial tibia, being careful to stay on the bony surface, the ACL was resected. The intramedullary guide was passed into the femoral canal. The distal cutting block was placed and distal cut was made. The femur sized to a size 3. The 3 cutting block was placed parallel to the epicondylar axis and cuts were made from posterior to anterior. The subperiosteal release was then carefully performed on the posterior distal femur, being careful to stay on the bony surface. The intramedullary guide was then passed into the tibia. The cutting block was placed. The drop raj transected the intermalleolar axis and the cut was made. Three baseplate was placed and the drop raj transected. The intermalleolar axis was prepared with a drill and keel punch. The trials were inserted, 10 mm insert was placed. Full extension was easily obtained greater than 120 degrees of flexion with gravity was easily obtained full extension was obtained. There was no anterior/posterior or medial/lateral laxity in flexion or extension. The patella was repaired by resecting 10 mm off the undersurface. The peg guide was placed and the peg holes were drilled. The patella trial was placed. The knee was taken through range of motion. The patella tracked well with similar stability findings noted. The trials were removed. The joint was copiously irrigated with pulse lavage. The periarticular block was placed in the posterior capsule, medial and lateral retinaculum extensor mechanism. Subcutaneous tissues and the bone ends were irrigated and dried. The tibial baseplate was cemented into position. Excessive cement was removed. The superior surface was irrigated and dried, and the polyethylene insert was placed. The distal femur was irrigated and dried and the femoral prosthesis was cemented into position. Excessive cement was removed. The knee was brought out in full extension until cement cured. The undersurface of the patella was irrigated and dried. The patellar button was cemented into position. Excess cement was removed. The knee was held in full extension until cement had cured. Once cement had cured, the knee was taken through range of motion. Full extension was easily obtained 120 degrees of flexion with gravity was easily obtained. The patella tracked well. There was no anterior/posterior or medial/lateral laxity in flexion or extension. The joint was further irrigated with pulse lavage. The arthrotomy was closed with #2 Tevdek in xlhyhr-gq-vedye interrupted fashion. The knee was flexed. Repair was stable. Subcutaneous tissues were irrigated using a total of 6 liters throughout the procedure. 0 Vicryl was used for deep subcutaneous layer, 2-0 Vicryl superficial subcutaneous layer, efra used on the skin. A soft dressing was applied. The tourniquet was deflated. The patient was transferred to recovery room awake and stable condition. Job ID: [id number] DocumentID: [id number] Dictated Date: 11/24/2022 09:20:15 Internal Specialist Date: 11/24/2022 17:05:00 Dictated By: DANIELE LEZAMA MD
[2022-11-24] MEDS: KCL 10 MEQ TAB (MICRO K) PO SCH (20:09)
[2022-11-24] MEDS: PANTOPRAZOLE 40 MG (PROTONIX) TAB PO SCH (20:09)
[2022-11-24] MEDS: MIRTAZAPINE 15 MG (REMERON) TAB PO SCH (20:09)
[2022-11-24] MEDS ORDERED: PATIENT MAY USE OWN MED,SINGLE MED PO SCH (20:45)
[2022-11-24] MEDS ORDERED: NON-FORMULARY MEDICATION 1 EA EA (Esomeprazole Magnesium 40 MG) PO SCH (21:00)
[2022-11-24] MEDS ORDERED: ATOGEPANT 60 MG PO SCH (21:00)
[2022-11-25 04:19] VITALS: BP 122/55
[2022-11-25] MEDS: oxyCODONE/APAP 10/325MG (PERCOCET 10) TABLET PO PRN ×3 (06:33→15:40)
[2022-11-25 06:54] LABS: HEMOGLOBIN 9.9 g/dL (11.5-16.0)
[2022-11-25] MEDS ORDERED: MULTIVIT W/MINERALS TAB (THERAGRAN M) PO SCH (07:00)
[2022-11-25 07:30] VITALS: BP 100/55
--- NOTE | 2022-11-25 07:44 | Anesthesia-General Post-Op ---
General Patient Condition Mental Status/LOC: Same as Preop Cardiovascular: Satisfactory Nausea/Vomiting: Absent Respiratory: Satisfactory Pain: Controlled Complications: Absent Post Op Complications Complications None Follow Up Care/Instructions Patient Instructions None needed. Anesthesia/Patient Condition Patient Condition Patient is doing well, no complaints, stable vital signs, no apparent adverse anesthesia problems. No complications reported per nursing. EARLENE RAMIRES CRNA Nov 25, 2022 07:44
--- NOTE | 2022-11-25 08:06 | Progress Note ---
Standard Progress Note Progress Notes/Assess & Plan Date Seen by a Provider: Nov 25, 2022 Time Seen by a Provider: 08:05 Progress/Assessment & Plan jpost op check no complaints radiographs--HW well positioned without fracture RLE--intact DF and PF of toes and ankle sensation intact to light touch throughtout 2 plus DP pulse with brisck cap refill s/p RTKA mobilize as able Final Diagnosis no complaints Vital Signs Date Time Temp Pulse Resp B/P (MAP) Pulse Ox O2 Delivery O2 Flow Rate FiO2 11/25/22 07:30 36.7 91 18 100/55 (70) 95 Room Air 11/25/22 06:33 36.4 11/25/22 06:27 20 11/25/22 04:19 36.4 84 20 122/55 (77) 97 Room Air 11/24/22 23:11 37.1 85 18 122/61 (81) 95 Room Air 11/24/22 21:36 Room Air 11/24/22 20:38 36.7 11/24/22 20:08 36.7 11/24/22 20:04 36.7 91 16 121/57 (78) 96 Room Air 11/24/22 20:00 Room Air 11/24/22 17:24 Room Air 11/24/22 16:18 36.9 87 16 117/55 (75) 95 Room Air 11/24/22 12:32 36.2 11/24/22 11:19 36.2 78 18 118/57 (77) 96 Room Air 11/24/22 10:53 36.3 88 18 127/60 (82) 96 Room Air 11/24/22 10:34 97 Room Air 11/24/22 10:15 Room Air 11/24/22 10:10 36.2 16 126/63 (84) 97 Room Air 11/24/22 10:00 18 128/69 (88) 97 Room Air 11/24/22 10:00 Room Air 11/24/22 09:50 14 123/80 (94) 100 OxyMask 2.00 11/24/22 09:45 OxyMask 2.00 11/24/22 09:40 14 120/75 (90) 99 OxyMask 2.00 11/24/22 09:30 OxyMask 4.00 11/24/22 09:30 16 120/69 (86) 98 OxyMask 4.00 11/24/22 09:20 17 141/73 (95) 100 OxyMask 6.00 11/24/22 09:15 OxyMask 8.00 11/24/22 09:15 36.2 16 124/69 (87) 99 OxyMask 8.00 I & O 11/25/22 07:00 Intake Total 2960 ml Output Total 1100 ml Balance 1860 ml Laboratory Tests Test 11/25/22 05:22 Range/Units Hemoglobin 9.9 L 11.5-16.0 g/dL Hematocrit 31 L 35-52 % RLE--dressing intact NVI distally no calf tenderness s/p RTKA PT/OT FAN CAM MD Nov 25, 2022 08:06
[2022-11-25] MEDS: metFORMIN 500 MG (GLUCOPHAGE) TAB PO SCH (08:47)
[2022-11-25] MEDS: ENOXAPARIN INJECTION 30 MG/0.3 ML SYR SC SCH ×2 (08:47→20:42)
[2022-11-25] MEDS: SENNA W/DOCUSATE (SENOKOT S) TABLET PO SCH ×2 (08:49→20:43)
[2022-11-25] MEDS: KCL 10 MEQ TAB (MICRO K) PO SCH ×2 (08:49→20:42)
[2022-11-25] MEDS: GABAPENTIN 100 MG (NEURONTIN) CAP PO SCH ×3 (08:49→20:42)
[2022-11-25] MEDS: PANTOPRAZOLE 40 MG (PROTONIX) TAB PO SCH ×2 (08:49→20:42)
[2022-11-25] MEDS: AtorvaSTATin TABLET 10 MG TABLET PO SCH (08:49)
[2022-11-25] MEDS: VITAMIN D3 25 MCG (1,000 UNITS) TABLET PO SCH (08:49)
[2022-11-25] MEDS: MONTELUKAST 10 MG (SINGULAIR) TAB PO SCH (08:49)
[2022-11-25] MEDS: busPIRone 10 MG (BUSPAR) TAB PO SCH ×3 (08:49→20:43)
[2022-11-25] MEDS: LORATADINE (CLARITIN) 10 MG TAB PO SCH (08:49)
[2022-11-25] MEDS: ASPIRIN E.C. 81 MG (ECOTRIN) TAB PO SCH (08:50)
[2022-11-25] MEDS: MULTIVIT W/MINERALS TAB (THERAGRAN M) PO SCH (08:50)
[2022-11-25] MEDS ORDERED: LEVOTHYROXINE 125 MCG (LEVOTHROID) TABLET PO SCH (09:00)
[2022-11-25] MEDS ORDERED: NON-FORMULARY MEDICATION 1 EA EA (Fexofenadine HCl (Allegra Allergy) 180 MG) PO SCH (09:00)
[2022-11-25] MEDS ORDERED: NON-FORMULARY MEDICATION 1 EA EA (Simvastatin 20 MG) PO SCH (09:00)
[2022-11-25] MEDS: CYCLOBENZAPRINE 10 MG (FLEXERIL) TAB PO PRN (09:07)
[2022-11-25] MEDS: meTOproloL SUCCINATE 50 MG (TOPROL XL) TAB PO SCH (09:42)
--- NOTE | 2022-11-25 09:53 | Physical Therapy Daily Note ---
PT Daily Note-Current Subjective Patient agrees to PT. Pain Numeric Pain Scale: 5-Moderate Pain Location: Right Location Body Site: Knee Pain Description: Acute Section J - Health Conditions 1. Rarely or not at all 2. Occasionally 3. Frequently 4. Almost constantly 8. Unable to answer Pain Effect on Sleep: 1 Pain Interference with Therapy: 1 Pain Interference w/Day-to-Day: 1 Mental Status Patient Orientation: Normal For Age Attachments: Polar Pack, IV Transfers SCALE: Activities may be completed with or without assistive devices. 5-Obyacnuuxk-edgmtfr completes the activity by him/herself with no assistance from a helper. 5-Set-up or Clean-up Assistance-helper sets up or cleans up; patient completes activity. [place] assists only prior to or following the activity. 4-Supervision or Touching Assistance-helper provides verbal cues and/or touching/steadying and/or contact guard assistance as patient completes activity. Assistance may be provided throughout the activity or intermittently. 3-Partial/Moderate Assistance-helper does LESS THAN HALF the effort. [place] lifts, holds or supports trunk or limbs, but provides less than half the effort. 2-Substantial/Maximal Assistance-helper does MORE THAN HALF the effort. [place] lifts or holds trunk or limbs and provides more than half the effort. 3-Feuqmbucn-wixaiu does ALL the effort. Patient does none of the effort to complete the activity. Or, the assistance of 2 or more helpers is required for the patient to complete the activity. If activity was not attempted, code reason: 7-Patient Refused. 9-Not Applicable-not attempted and the patient did not perform the activity before the current illness, exacerbation or injury. 10-Not Attempted due to Environmental Limitations-(lack of equipment, weather restraints, etc.). 88-Not Attempted due to Medical Conditions or Safety Concerns. Roll Left & Right (QC): 6 Lying to Sitting/Side of Bed(Q: 6 Sit to Stand (QC): 4 Chair/Lhy-qc-Uzsnv Xfer(QC): 4 Weight Bearing Right Lower Extremity: Right Weight Bearing/Tolerated Left Lower Extremity: Left Full Weight Bearing Gait Training Distance: 275' Walk 10 feet (QC): 4 Walk 50 ft with 2 Turns(QC): 4 Walk 150 ft (QC): 4 Gait Assistive Device: FWW steady, reciprocal pattern Exercises Supine Ex: Ankle pumps, Quad Set, Heel Slides, Straight leg raise Supine Reps: 15 Seated Therapy Exercises: Long arc quads Seated Reps: 15 Assessment Patient AROM right knee flexion is 85 degrees in supine. Patient progressing with treatment plan and is currently SBA to modified independent with all functional mobility. PT Longterm Goals Longterm Goals PT Campaign Developer Goals Time Frame: Dec 01, 2022 Roll Left & Right (QC): 6 Sit to Lying (QC): 6 Lying-Sitting on Side/Bed(QC): 6 Sit to Stand (QC): 6 Chair/Qpt-er-Ztbrm Xfer(QC): 6 Walk 10 feet (QC): 6 Walk 50ft with 2 Turns (QC): 6 Walk 150 ft (QC): 6 PT Plan Treatment/Plan Treatment Plan: Continue Plan of Care Treatment Plan: Bed Mobility, Education, Functional Activity Tamara, Functional Strength, Gait, Safety, Therapeutic Exercise, Transfers Treatment Duration: Dec 01, 2022 Frequency: 11 times per week Estimated Hrs Per Day: .25 hour per day Patient and/or Family Agrees t: Yes Time Time In: 800 Time Out: 824 DATE: Nov 25, 2022 Total Billed Treatment Time: 24 Total Billed Treatment 1 visit EX 14 min GT 10 min YOLA MCMILLAN PT Nov 25, 2022 09:53
--- NOTE | 2022-11-25 10:48 | Occupational Therapy Eval ---
OT Evaluation-General/PLF Medical Diagnosis Admission Date Nov 24, 2022 at 06:06 Medical Diagnosis: right TKA Onset Date: Nov 24, 2022 Therapy Diagnosis Therapy Diagnosis: reduced adl status Height/Weight Height (Feet): 5 Height (Inches): 6.00 Weight (Pounds): 160 Precautions Precautions/Isolations: Fall Prevention, Standard Precautions Referral Physician: Jeanmarie Referral Reason: Evaluation/Treatment Medical History Pertinent Medical History: Arthritis Additional Medical History fibromyalgia Current History s/p R TKA, post op day 1 Per patient, she lives alone in a [place] apartment. She was indep with adls and iadls prior to surgery. She does own a cane but was not using prior. Pt states that she has a tub, the shower head is "broken" She does have a shower chair. Reviewed History: Yes Social History Home: Apartment Current Living Status: Alone Entry Into Home: Level Entry ADL-Prior Level of Function SCALE: Activities may be completed with or without assistive devices. 1-Wnxqrmccay-uoufzqt completes the activity by him/herself with no assistance from a helper. 5-Set-up or Clean-up Assistance-helper sets up or cleans up; patient completes activity. [place] assists only prior to or following the activity. 4-Supervision or Touching Assistance-helper provides verbal cues and/or touching/steadying and/or contact guard assistance as patient completes activity. Assistance may be provided throughout the activity or intermittently. 3-Partial/Moderate Assistance-helper does LESS THAN HALF the effort. [place] lifts, holds or supports trunk or limbs, but provides less than half the effort. 2-Substantial/Maximal Assistance-helper does MORE THAN HALF the effort. [place] lifts or holds trunk or limbs and provides more than half the effort. 0-Peftwmtpj-keypxt does ALL the effort. Patient does none of the effort to complete the activity. Or, the assistance of 2 or more helpers is required for the patient to complete the activity. If activity was not attempted, code reason: 7-Patient Refused. 9-Not Applicable-not attempted and the patient did not perform the activity before the current illness, exacerbation or injury. 10-Not Attempted due to Environmental Limitations-(lack of equipment, weather restraints, etc.). 88-Not Attempted due to Medical Conditions or Safety Concerns. Self Care: Independent Functional Cognition: Independent DME/Equipment: Bath Chair, Tub/Shower Drive Self: Yes OT Current Status Subjective Pt reports R knee pain as 5/10. "I really can't go home by myself." Appearance Pt returned to supine in bed, all needs within reach at OT departure. Mental Status/Objective Patient Orientation: Person, Place, Situation Attachments: IV, Polar Pack, SCD's Current Glasses/Contacts: Yes Hearing Aids: No Dentures/Partials: No Hand Dominance: Right ADL-Treatment Eating (QC): 6 Lower Body Dressing (QC): 5 On/Off Footwear (QC): 6 Toileting Hygiene (QC): 6 Supine<>sit: SBA. Pt able to bend at waist to don bilateral socks without difficulty. She stood independently and ambulated in/out of bathroom with walker and SBA for management of IV pole. Pt able to complete all steps of toileting without assist. Pt can benefit from short term OT to address tub transfers, endurance, and homemaking/iadls. Pt does verbalize that she lived with her daughter for a short time while she had neck surgery but is unable to stay this time as he daughter now owns dogs. Education OT Patient Education: Correct positioning, Energy conservation, Modified ADL techniques, Purpose of tx/functional activities, Reviewed precautions Teaching Recipient: Patient Teaching Methods: Discussion Response to Teaching: Verbalize Understanding, Return Demonstration OT Business Test Analyst Goals Half-Way Goals Time Frame: Nov 29, 2022 Oral Hygiene (QC): 6 Shower/Bathe Self (QC): 5 Upper Body Dressing (QC): 6 Lower Body Dressing (QC): 6 Additional Goals: 1-Demonstrate ADL Tasks, 2-Verbalize Understanding, 3- ImproveStrength/Tamara 1=Demonstrate adherence to instructed precautions during ADL tasks. 2=Patient will verbalize/demonstrate understanding of assistive devices/jane fications for ADL. 3=Patient will improve strength/tolerance for activity to enable patient to perform ADL's. OT Education/Plan Problem List/Assessment Assessment: Decreased Activ Tolerance, Impaired Funct Balance, Impaired I ADL's Discharge Recommendations Plan/Recommendations: Continue POC Therapy Discharge Recommendati: Home & Family Treatment Plan/Plan of Care Treatment,Training & Education: Yes Patient would benefit from OT for education, treatment and training to promote independence in ADL's, mobility, safety and/or upper extremity function for ADL's. Plan of Care: ADL Retraining, Functional Mobility, UE Funct Exercise/Act Treatment Duration: Nov 29, 2022 Frequency: 5 times per week Estimated Hrs Per Day: .25 hour per day Rehab Potential: Good Time Start Time: 10:20 Stop Time: 10:40 DATE: Nov 25, 2022 Total Time Billed (hr/min): 20 Billed Treatment Time 1 visit Kristen Ayers OT Nov 25, 2022 10:48
[2022-11-25 11:30] VITALS: BP 114/57
[2022-11-25] MEDS: NS IV 1000 ML 1,000 ML IV SCH (12:47)
--- NOTE | 2022-11-25 13:57 | Physical Therapy Daily Note ---
PT Daily Note-Current Subjective Patient agrees to PT. C/o right hip pain 5/10. Pain Numeric Pain Scale: 5-Moderate Pain Location: Right Location Body Site: Hip Pain Description: Chronic Section J - Health Conditions 1. Rarely or not at all 2. Occasionally 3. Frequently 4. Almost constantly 8. Unable to answer Pain Effect on Sleep: 1 Pain Interference with Therapy: 1 Pain Interference w/Day-to-Day: 1 Mental Status Patient Orientation: Normal For Age Attachments: Polar Pack, IV Transfers SCALE: Activities may be completed with or without assistive devices. 6-Ubihejdydn-utvbclr completes the activity by him/herself with no assistance from a helper. 5-Set-up or Clean-up Assistance-helper sets up or cleans up; patient completes activity. [place] assists only prior to or following the activity. 4-Supervision or Touching Assistance-helper provides verbal cues and/or touching/steadying and/or contact guard assistance as patient completes activity. Assistance may be provided throughout the activity or intermittently. 3-Partial/Moderate Assistance-helper does LESS THAN HALF the effort. [place] lifts, holds or supports trunk or limbs, but provides less than half the effort. 2-Substantial/Maximal Assistance-helper does MORE THAN HALF the effort. [place] lifts or holds trunk or limbs and provides more than half the effort. 0-Mioweiivr-qkttfd does ALL the effort. Patient does none of the effort to complete the activity. Or, the assistance of 2 or more helpers is required for the patient to complete the activity. If activity was not attempted, code reason: 7-Patient Refused. 9-Not Applicable-not attempted and the patient did not perform the activity before the current illness, exacerbation or injury. 10-Not Attempted due to Environmental Limitations-(lack of equipment, weather restraints, etc.). 88-Not Attempted due to Medical Conditions or Safety Concerns. Roll Left & Right (QC): 6 Lying to Sitting/Side of Bed(Q: 6 Sit to Stand (QC): 5 Chair/Byc-lr-Elaqg Xfer(QC): 5 Weight Bearing Right Lower Extremity: Right Weight Bearing/Tolerated Left Lower Extremity: Left Full Weight Bearing Gait Training Distance: 275' Walk 10 feet (QC): 5 Walk 50 ft with 2 Turns(QC): 5 Walk 150 ft (QC): 5 Gait Assistive Device: FWW slow, reciprocal pattern with VC's for body placement in FWW Exercises Supine Ex: Ankle pumps, Quad Set, Heel Slides, Straight leg raise Supine Reps: 15 Seated Therapy Exercises: Long arc quads Seated Reps: 15 Assessment Patient progressing with noted increase c/o pain this a.m. with pain pills and [employer] utilized. Patient up in recliner with needs met. PT Retirement Goals Frame Gate Mortiser Operator Goals PT Frame Gate Mortiser Operator Goals Time Frame: Dec 01, 2022 Roll Left & Right (QC): 6 Sit to Lying (QC): 6 Lying-Sitting on Side/Bed(QC): 6 Sit to Stand (QC): 6 Chair/Kmq-jw-Xpvqi Xfer(QC): 6 Walk 10 feet (QC): 6 Walk 50ft with 2 Turns (QC): 6 Walk 150 ft (QC): 6 PT Plan Treatment/Plan Treatment Plan: Continue Plan of Care Treatment Plan: Bed Mobility, Education, Functional Activity Tamara, Functional Strength, Gait, Safety, Therapeutic Exercise, Transfers Treatment Duration: Dec 01, 2022 Frequency: 11 times per week Estimated Hrs Per Day: .25 hour per day Patient and/or Family Agrees t: Yes Time Time In: 1324 Time Out: 1347 DATE: Nov 25, 2022 Total Billed Treatment Time: 23 Total Billed Treatment 1 visit EX 13 min GT 10 min YOLA MCMILLAN PT Nov 25, 2022 13:57
--- NOTE | 2022-11-25 14:04 | Progress Note - Hospitalist ---
CELIO CONTRERAS 11/25/22 1404: Subjective HPI/CC On Admission Date Seen by Provider: Nov 25, 2022 Time Seen by Provider: 10:10 Chief complaint: Medical management following right knee replacement by Dr. Rios HPI: This is a 62-year-old female who underwent an uncomplicated right knee replacement by Dr. Rios. She reports minimal pain and all medications were restarted. She denies any nausea. Home meds reviewed. We will monitor patient closely for any postoperative complications. Subjective/Events-last exam Pt was seen laying in bed, she appeared healthy and denied n/v/d, chills, fever, dizziness. Said that her leg hurts but the pain meds help regulate it. She was feeling a little depressed and sad about her health, and is anxious about finding somewhere to help her rehabilitate. She hasnt had a bowel movement since the surgery. Review of Systems General: No Chills, No Night Sweats, No Malaise HEENT: No Head Aches, No Visual Changes, No Eye Pain, No Ear Pain, No Dysphasia, No Sinus Congestion, No Post Nasal Drip, No Sore Throat Pulmonary: No Dyspnea, No Cough, No Pleuritic Chest Pain, No Other Cardiovascular: No: Chest Pain, Orthopnea, Edema, Lt Headedness Gastrointestinal: Constipation; No: Nausea, Vomiting, Abdominal Pain Genitourinary: No Dysuria, No Frequency, No Incontinence Musculoskeletal: neck pain, leg pain Neurological: Numbness Objective Exam Vital Signs Vital Signs Date Time Temp Pulse Resp B/P (MAP) Pulse Ox O2 Delivery O2 Flow Rate FiO2 11/25/22 11:30 36.0 89 18 114/57 (76) 97 Room Air 11/24/22 09:50 2.00 Capillary Refill : General Appearance: No Apparent Distress, WD/WN HEENT: PERRL/EOMI, TMs Normal, Normal ENT Inspection, Pharynx Normal Neck: Full Range of Motion, Normal Inspection, Non Tender, Supple Respiratory: Chest Non Tender, Lungs Clear, Normal Breath Sounds, No Accessory Muscle Use, No Respiratory Distress Cardiovascular: Regular Rate, Rhythm, No Edema, No Gallop, No JVD, No Murmur, Normal Peripheral Pulses Gastrointestinal: Normal Bowel Sounds, No Organomegaly, No Pulsatile Mass, Non Tender, Soft Back: Normal Inspection, No CVA Tenderness, No Vertebral Tenderness Extremity: Normal Capillary Refill, Normal Inspection; No Normal Range of Motion; No Pedal Edema Neurologic/Psychiatric: Alert, Oriented x3, No Motor/Sensory Deficits, Normal Mood/Affect, content assistant II-XII Norm as Tested Skin: Normal Color, Warm/Dry Lymphatic: No Adenopathy Results/Procedures Lab Laboratory Tests 11/25/22 05:22 Patient resulted labs reviewed. Assessment/Plan Assessment and Plan Assess & Plan/Chief Complaint Assessment: Status post right knee replacement postop day #1 Hypothyroidism Fibromyalgia Depression Chronic Lymes disease hypotension DM T2 Anemia Plan: Supportive care Monitor closely Home meds OT/PT ADALGISA PERRIN DO 11/26/22 0451: Supervisory-Addendum Brief Verification & Attestation Participated in pt care: history, MDM, physical Personally performed: exam, history, MDM, supervision of care Care discussed with: Medical Student Procedures: n/a Results interpretation: Verified all documentation Verification and Attestation of Medical Student E/M Service A medical student performed and documented this service in my presence. I reviewed and verified all information documented by the medical student and made modifications to such information, when appropriate. I personally performed the physical exam and medical decision making. Adalgisa Perrin Nov 26, 2022,04:51 CELIO CONTRERAS Nov 25, 2022 14:04 ADALGISA PERRIN DO Nov 26, 2022 04:51
[2022-11-25 15:31] VITALS: BP 118/67
[2022-11-25] MEDS: CYCLOBENZAPRINE 10 MG (FLEXERIL) TAB PO SCH ×2 (15:40→20:44)
[2022-11-25 19:18] VITALS: BP 157/79
[2022-11-25] MEDS: MIRTAZAPINE 15 MG (REMERON) TAB PO SCH (20:42)
[2022-11-25] MEDS: LIDOCAINE 4% (SALONPAS) PATCH TOP SCH (20:42)
[2022-11-25 23:34] VITALS: BP 130/72
[2022-11-26] VITALS (7 sets, daily range): BP systolic 110–131; BP diastolic 57–82
[2022-11-26] MEDS: NS IV 1000 ML 1,000 ML IV SCH (01:31)
[2022-11-26] MEDS: CYCLOBENZAPRINE 10 MG (FLEXERIL) TAB PO SCH ×3 (05:38→20:11)
[2022-11-26] MEDS: LEVOTHYROXINE 125 MCG (LEVOTHROID) TABLET PO SCH (05:38)
[2022-11-26 06:01] LABS: BASOPHILS % (AUTO) 1 % (0-10); EOSINOPHILS # (AUTO) 0.2 10^3/uL (0.0-0.3); EOSINOPHILS % (AUTO) 3 % (0-10); HEMATOCRIT 29 % (35-52); HEMOGLOBIN 9.7 g/dL (11.5-16.0); LYMPHOCYTES % (AUTO) 23 % (12-44); MEAN CORPUSCULAR HEMOGLOBIN 30 pg (25-34); MEAN CORPUSCULAR HGB CONC 33 g/dL (32-36); MEAN CORPUSCULAR VOLUME 91 fL (80-99); MEAN PLATELET VOLUME 9.7 fL (9.0-12.2); MONOCYTES % (AUTO) 12 % (0-12); NEUTROPHILS # (AUTO) 5.3 10^3/uL (1.8-7.8); NEUTROPHILS % (AUTO) 62 % (42-75); PLATELET COUNT 223 10^3/uL (130-400); WHITE BLOOD COUNT 8.5 10^3/uL (4.3-11.0)
[2022-11-26 06:17] LABS: ALBUMIN 3.7 GM/DL (3.2-4.5); POTASSIUM 3.7 MMOL/L (3.6-5.0)
[2022-11-26 06:18] LABS: CALCIUM 8.4 MG/DL (8.5-10.1)
[2022-11-26 06:19] LABS: TOTAL PROTEIN 6.1 GM/DL (6.4-8.2)
[2022-11-26 06:21] LABS: BILIRUBIN,TOTAL 0.6 MG/DL (0.1-1.0)
[2022-11-26 06:23] LABS: CREATININE SERUM 0.81 MG/DL (0.60-1.30)
--- NOTE | 2022-11-26 06:57 | Progress Note ---
Standard Progress Note Progress Notes/Assess & Plan Date Seen by a Provider: Nov 26, 2022 Time Seen by a Provider: 06:56 Progress/Assessment & Plan jpost op check no complaints radiographs--HW well positioned without fracture RLE--intact DF and PF of toes and ankle sensation intact to light touch throughtout 2 plus DP pulse with brisck cap refill s/p RTKA mobilize as able Final Diagnosis c/o hip pain Laboratory Tests Test 11/26/22 05:25 Range/Units White Blood Count 8.5 4.3-11.0 10^3/uL Red Blood Count 3.20 L 3.80-5.11 10^6/uL Hemoglobin 9.7 L 11.5-16.0 g/dL Hematocrit 29 L 35-52 % Mean Corpuscular Volume 91 80-99 fL Mean Corpuscular Hemoglobin 30 25-34 pg Mean Corpuscular Hemoglobin Concent 33 32-36 g/dL Red Cell Distribution Width 12.5 10.0-14.5 % Platelet Count 223 130-400 10^3/uL Mean Platelet Volume 9.7 9.0-12.2 fL Immature Granulocyte % (Auto) 0 % Neutrophils (%) (Auto) 62 42-75 % Lymphocytes (%) (Auto) 23 12-44 % Monocytes (%) (Auto) 12 0-12 % Eosinophils (%) (Auto) 3 0-10 % Basophils (%) (Auto) 1 0-10 % Neutrophils # (Auto) 5.3 1.8-7.8 10^3/uL Lymphocytes # (Auto) 2.0 1.0-4.0 10^3/uL Monocytes # (Auto) 1.0 0.0-1.0 10^3/uL Eosinophils # (Auto) 0.2 0.0-0.3 10^3/uL Basophils # (Auto) 0.0 0.0-0.1 10^3/uL Immature Granulocyte # (Auto) 0.0 0.0-0.1 10^3/uL Sodium Level 138 135-145 MMOL/L Potassium Level 3.7 3.6-5.0 MMOL/L Chloride Level 104 98-107 MMOL/L Carbon Dioxide Level 25 21-32 MMOL/L Anion Gap 9 5-14 MMOL/L Blood Urea Nitrogen 9 7-18 MG/DL Creatinine 0.81 0.60-1.30 MG/DL Estimat Glomerular Filtration Rate 83 BUN/Creatinine Ratio 11 Glucose Level 133 H 70-105 MG/DL Calcium Level 8.4 L 8.5-10.1 MG/DL Corrected Calcium 8.6 8.5-10.1 MG/DL Total Bilirubin 0.6 0.1-1.0 MG/DL Aspartate Amino Transf (AST/SGOT) 27 5-34 U/L Alanine Aminotransferase (ALT/SGPT) 33 0-55 U/L Alkaline Phosphatase 58 40-136 U/L Total Protein 6.1 L 6.4-8.2 GM/DL Albumin 3.7 3.2-4.5 GM/DL Vital Signs Date Time Temp Pulse Resp B/P (MAP) Pulse Ox O2 Delivery O2 Flow Rate FiO2 11/26/22 05:43 18 11/26/22 03:33 36.7 106 19 131/78 (95) 96 Room Air 11/25/22 23:34 36.7 103 19 130/72 (91) 95 Room Air 11/25/22 20:44 Room Air 11/25/22 19:18 37.9 104 19 157/79 (105) 95 Room Air 11/25/22 17:57 20 11/25/22 15:31 37.1 99 20 118/67 (84) 99 Room Air 11/25/22 11:30 36.0 89 18 114/57 (76) 97 Room Air 11/25/22 08:00 95 Room Air 11/25/22 07:30 36.7 91 18 100/55 (70) 95 Room Air I & O 11/26/22 07:00 Intake Total 3200 ml Output Total 3350 ml Balance -150 ml RLE--incision clean and dry no calf tenderness neg Ry's s/p RTKA PT/OT await placement FAN LEZAMA MD Nov 26, 2022 06:57
[2022-11-26] MEDS ORDERED: morphine INJ 4 MG/ML 1 ML (VIAL/SYRINGE) IVP PRN (07:00)
[2022-11-26] MEDS: oxyCODONE/APAP 10/325MG (PERCOCET 10) TABLET PO PRN ×4 (08:23→23:58)
[2022-11-26] MEDS: AtorvaSTATin TABLET 10 MG TABLET PO SCH (08:23)
[2022-11-26] MEDS: LORATADINE (CLARITIN) 10 MG TAB PO SCH (08:23)
[2022-11-26] MEDS: ASPIRIN E.C. 81 MG (ECOTRIN) TAB PO SCH (08:23)
[2022-11-26] MEDS: ENOXAPARIN INJECTION 30 MG/0.3 ML SYR SC SCH ×2 (08:23→20:10)
[2022-11-26] MEDS: MONTELUKAST 10 MG (SINGULAIR) TAB PO SCH (08:23)
[2022-11-26] MEDS: GABAPENTIN 100 MG (NEURONTIN) CAP PO SCH ×3 (08:23→20:10)
[2022-11-26] MEDS: MULTIVIT W/MINERALS TAB (THERAGRAN M) PO SCH (08:24)
[2022-11-26] MEDS: KCL 10 MEQ TAB (MICRO K) PO SCH ×2 (08:24→20:10)
[2022-11-26] MEDS: busPIRone 10 MG (BUSPAR) TAB PO SCH ×3 (08:24→20:10)
[2022-11-26] MEDS: LIDOCAINE 4% (SALONPAS) PATCH TOP SCH (08:24)
[2022-11-26] MEDS: PANTOPRAZOLE 40 MG (PROTONIX) TAB PO SCH ×2 (08:24→20:10)
[2022-11-26] MEDS: metFORMIN 500 MG (GLUCOPHAGE) TAB PO SCH (08:24)
[2022-11-26] MEDS: SENNA W/DOCUSATE (SENOKOT S) TABLET PO SCH ×2 (08:25→20:11)
[2022-11-26] MEDS: meTOproloL SUCCINATE 50 MG (TOPROL XL) TAB PO SCH (08:25)
[2022-11-26] MEDS: VITAMIN D3 25 MCG (1,000 UNITS) TABLET PO SCH (08:26)
[2022-11-26] MEDS ORDERED: LIDOCAINE 4% (SALONPAS) PATCH TOP SCH (09:00)
--- NOTE | 2022-11-26 10:09 | Physical Therapy Daily Note ---
PT Daily Note-Current Subjective Patient is tearful due to right knee pain. Pain Numeric Pain Scale: 10-Worst Possible Pain Location: Right Location Body Site: Knee Pain Description: Acute Section J - Health Conditions 1. Rarely or not at all 2. Occasionally 3. Frequently 4. Almost constantly 8. Unable to answer Pain Effect on Sleep: 2 Pain Interference with Therapy: 2 Pain Interference w/Day-to-Day: 2 Mental Status Patient Orientation: Normal For Age Attachments: Polar Pack Transfers SCALE: Activities may be completed with or without assistive devices. 5-Pbeinvybss-nltdbld completes the activity by him/herself with no assistance from a helper. 5-Set-up or Clean-up Assistance-helper sets up or cleans up; patient completes activity. [place] assists only prior to or following the activity. 4-Supervision or Touching Assistance-helper provides verbal cues and/or touching/steadying and/or contact guard assistance as patient completes activity. Assistance may be provided throughout the activity or intermittently. 3-Partial/Moderate Assistance-helper does LESS THAN HALF the effort. [place] lifts, holds or supports trunk or limbs, but provides less than half the effort. 2-Substantial/Maximal Assistance-helper does MORE THAN HALF the effort. [place] lifts or holds trunk or limbs and provides more than half the effort. 5-Gjzsskcqb-rjwnah does ALL the effort. Patient does none of the effort to complete the activity. Or, the assistance of 2 or more helpers is required for the patient to complete the activity. If activity was not attempted, code reason: 7-Patient Refused. 9-Not Applicable-not attempted and the patient did not perform the activity before the current illness, exacerbation or injury. 10-Not Attempted due to Environmental Limitations-(lack of equipment, weather restraints, etc.). 88-Not Attempted due to Medical Conditions or Safety Concerns. Lying to Sitting/Side of Bed(Q: 6 Sit to Stand (QC): 5 Chair/Pfx-rb-Pmcwy Xfer(QC): 5 Weight Bearing Right Lower Extremity: Right Weight Bearing/Tolerated Left Lower Extremity: Left Full Weight Bearing Gait Training Distance: 275' Walk 10 feet (QC): 5 Walk 50 ft with 2 Turns(QC): 5 Walk 150 ft (QC): 5 Gait Assistive Device: FWW slow, antalgic with patient applying minimal weight through right LE due to pain/VC's for body placement and weight bearing, however, patient appeared to not comply. Exercises Supine Ex: Ankle pumps, Quad Set, Heel Slides, Straight leg raise Supine Reps: 15 Seated Therapy Exercises: Long arc quads Seated Reps: 15 Assessment Patient has 20 degrees of extension and ~ 60 degrees flexion. Patient is very resistive with all AAROM and is tearful during session. Pain medication issued per RN. PT encouraged patient to perform exercises PRN to improve ROM. Patient voices understanding. Patient in recliner with polar pack right knee. PT Mcfp Goals Tree Killer Goals PT Tree Killer Goals Time Frame: Dec 01, 2022 Roll Left & Right (QC): 6 Sit to Lying (QC): 6 Lying-Sitting on Side/Bed(QC): 6 Sit to Stand (QC): 6 Chair/Jcs-yl-Jdmdl Xfer(QC): 6 Walk 10 feet (QC): 6 Walk 50ft with 2 Turns (QC): 6 Walk 150 ft (QC): 6 PT Plan Treatment/Plan Treatment Plan: Continue Plan of Care Treatment Plan: Bed Mobility, Education, Functional Activity Tamara, Functional Strength, Gait, Safety, Therapeutic Exercise, Transfers Treatment Duration: Dec 01, 2022 Frequency: 11 times per week Estimated Hrs Per Day: .25 hour per day Patient and/or Family Agrees t: Yes Time Time In: 755 Time Out: 823 DATE: Nov 26, 2022 Total Billed Treatment Time: 28 Total Billed Treatment 1 visit EX 15 min GT 13 min YOLA MCMILLAN PT Nov 26, 2022 10:09
--- NOTE | 2022-11-26 10:47 | Progress Note - Hospitalist ---
Subjective HPI/CC On Admission Date Seen by Provider: Nov 26, 2022 Time Seen by Provider: 11:00 Chief complaint: Medical management following right knee replacement by Dr. Rios HPI: This is a 62-year-old female who underwent an uncomplicated right knee replacement by Dr. Rios. She reports minimal pain and all medications were restarted. She denies any nausea. Home meds reviewed. We will monitor patient closely for any postoperative complications. Subjective/Events-last exam Patient doing well Awaiting mcc placement Walking around pretty well Check meds and labs Review of Systems Musculoskeletal: leg pain Objective Exam Vital Signs Vital Signs Date Time Temp Pulse Resp B/P (MAP) Pulse Ox O2 Delivery O2 Flow Rate FiO2 11/26/22 19:37 36.2 95 16 121/75 (90) 98 Room Air 11/26/22 15:55 0.00 Capillary Refill : General Appearance: No Apparent Distress, WD/WN, Chronically ill Respiratory: Lungs Clear, Normal Breath Sounds Cardiovascular: Regular Rate, Rhythm Neurologic/Psychiatric: Alert, Oriented x3, No Motor/Sensory Deficits, Normal Mood/Affect Results/Procedures Lab Laboratory Tests 11/26/22 05:25 Patient resulted labs reviewed. Assessment/Plan Assessment and Plan Assess & Plan/Chief Complaint Assessment: Status post right knee replacement postop day #0 Hypothyroidism Fibromyalgia Depression Plan: Supportive care Monitor closely Home meds Diagnosis/Problems Diagnosis/Problems (1) Osteoarthritis of right knee (2) Anxiety state Status: Acute SHANE PERRIN DO Nov 26, 2022 10:47
--- NOTE | 2022-11-26 11:45 | Occupational Ther Daily Note ---
OT Current Status-Daily Note Subjective Pt in bathroom sitting on toilet. Pt reported that while ambulating without FWW to get to bathroom and began to void and slipped, she caught herself and made it to the toilet. She also stated that she just tweaked her knee but did not fall. MOTT reminded pt to wait for staff, pt stated she tried but she had to go to the bathroom. MOTT reported this to nrs. Pt declined polar pack on knee. Mental Status/Objective Patient Orientation: Person, Place, Time, Situation ADL-Treatment Pt able to complete own clothing manipulation and hygiene for toileting then ambulated to sink with FWW to wash hands. Pt ambulated using FWW to bed and completed bed mobility independently. Declined donning briefs. After session, pt lying in bed with call light/phone in reach. All needs met in room. Therapy Code Descriptions/Definitions Functional [place] Measure: 0=Not Assessed/NA 4=Minimal Assistance 1=Total Assistance 5=Supervision or Setup 2=Maximal Assistance 6=Modified [place] 3=Moderate Assistance 7=Complete IndependenceSCALE: Activities may be completed with or without assistive devices. 2-Utkcxibtaw-ttsaiul completes the activity by him/herself with no assistance from a helper. 5-Set-up or Clean-up Assistance-helper sets up or cleans up; patient completes activity. [place] assists only prior to or following the activity. 4-Supervision or Touching Assistance-helper provides verbal cues and/or touching/steadying and/or contact guard assistance as patient completes activity. Assistance may be provided throughout the activity or intermittently. 3-Partial/Moderate Assistance-helper does LESS THAN HALF the effort. [place] lifts, holds or supports trunk or limbs, but provides less than half the effort. 2-Substantial/Maximal Assistance-helper does MORE THAN HALF the effort. [place] lifts or holds trunk or limbs and provides more than half the effort. 9-Mqqcfhpdn-hwbgoy does ALL the effort. Patient does none of the effort to complete the activity. Or, the assistance of 2 or more helpers is required for the patient to complete the activity. If activity was not attempted, code reason: 7-Patient Refused. 9-Not Applicable-not attempted and the patient did not perform the activity before the current illness, exacerbation or injury. 10-Not Attempted due to Environmental Limitations-(lack of equipment, weather restraints, etc.). 88-Not Attempted due to Medical Conditions or Safety Concerns. OT Longterm Goals Sander Portable Machine Goals Time Frame: Nov 29, 2022 Oral Hygiene (QC): 6 Shower/Bathe Self (QC): 5 Upper Body Dressing (QC): 6 Lower Body Dressing (QC): 6 Additional Goals: 1-Demonstrate ADL Tasks, 2-Verbalize Understanding, 3-ImproveStrength/Tamara 1=Demonstrate adherence to instructed precautions during ADL tasks. 2=Patient will verbalize/demonstrate understanding of assistive devices/modifications for ADL. 3=Patient will improve strength/tolerance for activity to enable patient to perform ADL's. OT Education/Plan Discharge Recommendations Plan/Recommendations: Continue POC Treatment Plan/Plan of Care Patient would benefit from OT for education, treatment and training to promote independence in ADL's, mobility, safety and/or upper extremity function for ADL's. Plan of Care: ADL Retraining, Functional Mobility, UE Funct Exercise/Act Treatment Duration: Nov 29, 2022 Frequency: 5 times per week Estimated Hrs Per Day: .25 hour per day Rehab Potential: Good Time Start Time: 11:20 Stop Time: 11:31 DATE: Nov 26, 2022 Total Time Billed (hr/min): 11 Billed Treatment Time 1 visit-ADL 1 (11 min) RICARDO HERNANDEZ Nov 26, 2022 11:45
--- NOTE | 2022-11-26 14:08 | Physical Therapy Daily Note ---
PT Daily Note-Current Subjective Patient agrees to PT. Pain Numeric Pain Scale: 8 Location: Right Location Body Site: Knee Pain Description: Acute Comment: pain meds issued Section J - Health Conditions 1. Rarely or not at all 2. Occasionally 3. Frequently 4. Almost constantly 8. Unable to answer Pain Effect on Sleep: 2 Pain Interference with Therapy: 2 Pain Interference w/Day-to-Day: 2 Mental Status Patient Orientation: Normal For Age Transfers SCALE: Activities may be completed with or without assistive devices. 9-Rnhpmoebxd-vhvpjyl completes the activity by him/herself with no assistance from a helper. 5-Set-up or Clean-up Assistance-helper sets up or cleans up; patient completes activity. [place] assists only prior to or following the activity. 4-Supervision or Touching Assistance-helper provides verbal cues and/or t ouching/steadying and/or contact guard assistance as patient completes activity. Assistance may be provided throughout the activity or intermittently. 3-Partial/Moderate Assistance-helper does LESS THAN HALF the effort. [place] lifts, holds or supports trunk or limbs, but provides less than half the effort. 2-Substantial/Maximal Assistance-helper does MORE THAN HALF the effort. [place] lifts or holds trunk or limbs and provides more than half the effort. 9-Aenqmwufy-unxbgv does ALL the effort. Patient does none of the effort to complete the activity. Or, the assistance of 2 or more helpers is required for the patient to complete the activity. If activity was not attempted, code reason: 7-Patient Refused. 9-Not Applicable-not attempted and the patient did not perform the activity before the current illness, exacerbation or injury. 10-Not Attempted due to Environmental Limitations-(lack of equipment, weather restraints, etc.). 88-Not Attempted due to Medical Conditions or Safety Concerns. Lying to Sitting/Side of Bed(Q: 6 Sit to Stand (QC): 5 Chair/Mrt-cq-Vzwvk Xfer(QC): 5 Toilet Transfer (QC): 5 Weight Bearing Right Lower Extremity: Right Weight Bearing/Tolerated Left Lower Extremity: Left Full Weight Bearing Gait Training Distance: 275' Walk 10 feet (QC): 5 Walk 50 ft with 2 Turns(QC): 5 Walk 150 ft (QC): 5 Gait Assistive Device: FWW improved gait sequence with more weight bearing right LE Exercises Supine Ex: Ankle pumps, Quad Set, Heel Slides, Straight leg raise Supine Reps: 15 Seated Therapy Exercises: Long arc quads Seated Reps: 15 Assessment Patient tolerated treatment well and is up in recliner after toileting. Patient progressing with treatment plan. PT Alterations Workroom Clerk Goals Senior Care Goals PT Alterations Workroom Clerk Goals Time Frame: Dec 01, 2022 Roll Left & Right (QC): 6 Sit to Lying (QC): 6 Lying-Sitting on Side/Bed(QC): 6 Sit to Stand (QC): 6 Chair/Vsu-uu-Hbinn Xfer(QC): 6 Walk 10 feet (QC): 6 Walk 50ft with 2 Turns (QC): 6 Walk 150 ft (QC): 6 PT Plan Treatment/Plan Treatment Plan: Continue Plan of Care Treatment Plan: Bed Mobility, Education, Functional Activity Tamara, Functional Strength, Gait, Safety, Therapeutic Exercise, Transfers Treatment Duration: Dec 01, 2022 Frequency: 11 times per week Estimated Hrs Per Day: .25 hour per day Patient and/or Family Agrees t: Yes Time Time In: 1250 Time Out: 1320 DATE: Nov 26, 2022 Total Billed Treatment Time: 30 Total Billed Treatment 1 visit EX 15 min GT 15 min YOLA MCMILLAN PT Nov 26, 2022 14:08
[2022-11-26] MEDS: MIRTAZAPINE 15 MG (REMERON) TAB PO SCH (20:10)
[2022-11-26] MEDS ORDERED: LIDOCAINE PATCH REMOVAL TP SCH (20:59)
[2022-11-27 03:33] VITALS: BP 117/74
--- NOTE | 2022-11-27 05:28 | Progress Note - Hospitalist ---
Subjective HPI/CC On Admission Date Seen by Provider: Nov 27, 2022 Time Seen by Provider: 05:30 Chief complaint: Medical management following right knee replacement by Dr. Rios HPI: This is a 62-year-old female who underwent an uncomplicated right knee replacement by Dr. Rios. She reports minimal pain and all medications were restarted. She denies any nausea. Home meds reviewed. We will monitor patient closely for any postoperative complications. Subjective/Events-last exam No major events Still very slow recovery Checked meds and labs Objective Exam Vital Signs Vital Signs Date Time Temp Pulse Resp B/P (MAP) Pulse Ox O2 Delivery O2 Flow Rate FiO2 11/27/22 07:29 36.6 110 20 124/72 (89) 95 Room Air 11/26/22 15:55 0.00 Capillary Refill : General Appearance: No Apparent Distress, WD/WN Respiratory: Lungs Clear, Normal Breath Sounds Results/Procedures Lab Laboratory Tests 11/27/22 05:18 Patient resulted labs reviewed. Assessment/Plan Assessment and Plan Assess & Plan/Chief Complaint Assessment: Status post right knee replacement postop day #2 Hypothyroidism Fibromyalgia Depression Plan: Supportive care Monitor closely Home meds Slow recovery Diagnosis/Problems Diagnosis/Problems (1) Osteoarthritis of right knee (2) Anxiety state Status: Acute SHANE PERRIN DO Nov 27, 2022 05:28
[2022-11-27] MEDS: LEVOTHYROXINE 125 MCG (LEVOTHROID) TABLET PO SCH (05:54)
[2022-11-27] MEDS: CYCLOBENZAPRINE 10 MG (FLEXERIL) TAB PO SCH (05:54)
[2022-11-27 06:00] LABS: BASOPHILS # (AUTO) 0.1 10^3/uL (0.0-0.1); BASOPHILS % (AUTO) 1 % (0-10); EOSINOPHILS # (AUTO) 0.2 10^3/uL (0.0-0.3); EOSINOPHILS % (AUTO) 2 % (0-10); HEMATOCRIT 31 % (35-52); LYMPHOCYTES # (AUTO) 2.5 10^3/uL (1.0-4.0); LYMPHOCYTES % (AUTO) 25 % (12-44); MEAN CORPUSCULAR HEMOGLOBIN 30 pg (25-34); MEAN CORPUSCULAR HGB CONC 33 g/dL (32-36); MEAN CORPUSCULAR VOLUME 93 fL (80-99); MEAN PLATELET VOLUME 9.5 fL (9.0-12.2); MONOCYTES % (AUTO) 10 % (0-12); NEUTROPHILS # (AUTO) 6.3 10^3/uL (1.8-7.8); NEUTROPHILS % (AUTO) 62 % (42-75); PLATELET COUNT 246 10^3/uL (130-400); WHITE BLOOD COUNT 10.1 10^3/uL (4.3-11.0)
[2022-11-27 06:04] LABS: ALBUMIN 3.7 GM/DL (3.2-4.5)
[2022-11-27 06:05] LABS: POTASSIUM 3.9 MMOL/L (3.6-5.0)
[2022-11-27 06:07] LABS: TOTAL PROTEIN 6.4 GM/DL (6.4-8.2)
[2022-11-27 06:09] LABS: BILIRUBIN,TOTAL 0.9 MG/DL (0.1-1.0)
[2022-11-27 06:11] LABS: CREATININE SERUM 0.72 MG/DL (0.60-1.30)
--- NOTE | 2022-11-27 06:43 | Progress Note ---
Standard Progress Note Progress Notes/Assess & Plan Date Seen by a Provider: Nov 27, 2022 Time Seen by a Provider: 06:42 Progress/Assessment & Plan jpost op check no complaints radiographs--HW well positioned without fracture RLE--intact DF and PF of toes and ankle sensation intact to light touch throughtout 2 plus DP pulse with brisck cap refill s/p RTKA mobilize as able Final Diagnosis no new complaints Vital Signs Date Time Temp Pulse Resp B/P (MAP) Pulse Ox O2 Delivery O2 Flow Rate FiO2 11/27/22 03:33 37.1 98 16 117/74 (88) 97 Room Air 11/26/22 23:58 37.1 108 16 110/76 (87) 96 Room Air 11/26/22 20:15 Room Air 11/26/22 19:37 36.2 95 16 121/75 (90) 98 Room Air 11/26/22 15:55 Room Air 0.00 11/26/22 15:28 36.6 74 21 127/72 (90) 92 Room Air 11/26/22 11:19 37.2 89 18 114/57 (76) 95 Room Air 11/26/22 09:42 36.7 105 19 128/81 (97) 93 Room Air 11/26/22 08:34 37.5 118 20 125/82 (96) 96 Room Air 11/26/22 08:00 96 Room Air 11/26/22 07:28 18 I & O 11/27/22 06:59 Intake Total 1852 ml Balance 1852 ml Laboratory Tests Test 11/27/22 05:18 Range/Units White Blood Count 10.1 4.3-11.0 10^3/uL Red Blood Count 3.29 L 3.80-5.11 10^6/uL Hemoglobin 10.0 L 11.5-16.0 g/dL Hematocrit 31 L 35-52 % Mean Corpuscular Volume 93 80-99 fL Mean Corpuscular Hemoglobin 30 25-34 pg Mean Corpuscular Hemoglobin Concent 33 32-36 g/dL Red Cell Distribution Width 12.8 10.0-14.5 % Platelet Count 246 130-400 10^3/uL Mean Platelet Volume 9.5 9.0-12.2 fL Immature Granulocyte % (Auto) 0 % Neutrophils (%) (Auto) 62 42-75 % Lymphocytes (%) (Auto) 25 12-44 % Monocytes (%) (Auto) 10 0-12 % Eosinophils (%) (Auto) 2 0-10 % Basophils (%) (Auto) 1 0-10 % Neutrophils # (Auto) 6.3 1.8-7.8 10^3/uL Lymphocytes # (Auto) 2.5 1.0-4.0 10^3/uL Monocytes # (Auto) 1.0 0.0-1.0 10^3/uL Eosinophils # (Auto) 0.2 0.0-0.3 10^3/uL Basophils # (Auto) 0.1 0.0-0.1 10^3/uL Immature Granulocyte # (Auto) 0.0 0.0-0.1 10^3/uL Sodium Level 137 135-145 MMOL/L Potassium Level 3.9 3.6-5.0 MMOL/L Chloride Level 106 98-107 MMOL/L Carbon Dioxide Level 21 21-32 MMOL/L Anion Gap 10 5-14 MMOL/L Blood Urea Nitrogen 8 7-18 MG/DL Creatinine 0.72 0.60-1.30 MG/DL Estimat Glomerular Filtration Rate 95 BUN/Creatinine Ratio 11 Glucose Level 136 H 70-105 MG/DL Calcium Level 9.0 8.5-10.1 MG/DL Corrected Calcium 9.2 8.5-10.1 MG/DL Total Bilirubin 0.9 0.1-1.0 MG/DL Aspartate Amino Transf (AST/SGOT) 23 5-34 U/L Alanine Aminotransferase (ALT/SGPT) 30 0-55 U/L Alkaline Phosphatase 70 40-136 U/L Total Protein 6.4 6.4-8.2 GM/DL Albumin 3.7 3.2-4.5 GM/DL RLE--able to maintain SLR NVI distally no laxity in any plane R knee s/p RTKA DC home after PT today FAN LEZAMA MD Nov 27, 2022 06:43
[2022-11-27] MEDS ORDERED: OXYC1TAB16 PO (06:45)
[2022-11-27 07:29] VITALS: BP 124/72
[2022-11-27] MEDS: LIDOCAINE 4% (SALONPAS) PATCH TOP SCH (08:14)
[2022-11-27] MEDS: ASPIRIN E.C. 81 MG (ECOTRIN) TAB PO SCH (08:17)
[2022-11-27] MEDS: oxyCODONE/APAP 10/325MG (PERCOCET 10) TABLET PO PRN (08:17)
[2022-11-27] MEDS: ENOXAPARIN INJECTION 30 MG/0.3 ML SYR SC SCH (08:17)
[2022-11-27] MEDS: busPIRone 10 MG (BUSPAR) TAB PO SCH (08:17)
[2022-11-27] MEDS: VITAMIN D3 25 MCG (1,000 UNITS) TABLET PO SCH (08:18)
[2022-11-27] MEDS: metFORMIN 500 MG (GLUCOPHAGE) TAB PO SCH (08:18)
[2022-11-27] MEDS: GABAPENTIN 100 MG (NEURONTIN) CAP PO SCH (08:18)
[2022-11-27] MEDS: meTOproloL SUCCINATE 50 MG (TOPROL XL) TAB PO SCH (08:18)
[2022-11-27] MEDS: LORATADINE (CLARITIN) 10 MG TAB PO SCH (08:19)
[2022-11-27] MEDS: MONTELUKAST 10 MG (SINGULAIR) TAB PO SCH (08:19)
[2022-11-27] MEDS: SENNA W/DOCUSATE (SENOKOT S) TABLET PO SCH (08:19)
[2022-11-27] MEDS: KCL 10 MEQ TAB (MICRO K) PO SCH (08:19)
[2022-11-27] MEDS: MULTIVIT W/MINERALS TAB (THERAGRAN M) PO SCH (08:20)
[2022-11-27] MEDS: PANTOPRAZOLE 40 MG (PROTONIX) TAB PO SCH (08:20)
[2022-11-27] MEDS: AtorvaSTATin TABLET 10 MG TABLET PO SCH (08:20)
[2022-11-27 11:13] VITALS: BP 106/70
[2022-11-27 11:34] VITALS: BP 106/70
--- NOTE | 2022-11-27 11:50 | DISCHARGE SUMMARY ---
DATE OF SERVICE: 11/27/2022 DIAGNOSES: 1. Right knee primary osteoarthritis. 2. Anemia. 3. Anxiety. 4. Arthritis. 5. Asthma. 6. Chronic Lyme disease. 7. Hiatal hernia. 8. Hypothyroidism. 9. Depression. 10. Fibromyalgia. 11. Tachycardia. 12. Sleep apnea. PROCEDURE: Right total knee arthroplasty. SUMMARY: The patient is a 62-year-old female who underwent a right total knee arthroplasty on day of admission. Postoperatively, she progressed well. At time of discharge, her wound was clean and dry. She had no calf tenderness. Negative Homans sign. She was tolerating diet well and tolerating pain with oral pain medication. CONDITION AT DISCHARGE: Good. DISCHARGE DIET: Regular. Followup is in 3 weeks. Home physical therapy will be arranged. DISCHARGE MEDICATIONS: Home medications plus Percocet as needed for pain and 1 aspirin per day for 30 days. Job ID: [id number] DocumentID: [id number] Dictated Date: 11/27/2022 06:48:37 General Office Clerk Date: 11/27/2022 11:48:00 Dictated By: FAN LEZAMA MD
--- NOTE | 2022-11-27 12:26 | Physical Therapy Daily Note ---
PT Daily Note-Current Subjective Pt in bed, disgruntled about discharge. "I thought I was going to get to go to rehab. Now I have to go to my daughter's and she has 2 dogs that jump all over people". Pt reporting "I'm overheating, I'm going to pass out" when walking. Pt also kept stating, "I was doing well until I slipped yesterday". Pt dismissive o f PT cues and direction to normalize gait. Attempted step training but Pt reported "I just can't do it". Pain Numeric Pain Scale: 6 Location: Right Location Body Site: Knee Pain Description: Ache Section J - Health Conditions 1. Rarely or not at all 2. Occasionally 3. Frequently 4. Almost constantly 8. Unable to answer Pain Effect on Sleep: 2 Pain Interference with Therapy: 2 Pain Interference w/Day-to-Day: 2 Mental Status Patient Orientation: Person, Place, Time, Situation Transfers SCALE: Activities may be completed with or without assistive devices. 7-Genurpgcwv-gnxjwhs completes the activity by him/herself with no assistance fr om a helper. 5-Set-up or Clean-up Assistance-helper sets up or cleans up; patient completes activity. [place] assists only prior to or following the activity. 4-Supervision or Touching Assistance-helper provides verbal cues and/or touching/steadying and/or contact guard assistance as patient completes activity. Assistance may be provided throughout the activity or intermittently. 3-Partial/Moderate Assistance-helper does LESS THAN HALF the effort. [place] lifts, holds or supports trunk or limbs, but provides less than half the effort. 2-Substantial/Maximal Assistance-helper does MORE THAN HALF the effort. [place] lifts or holds trunk or limbs and provides more than half the effort. 6-Boaschlfl-bylnff does ALL the effort. Patient does none of the effort to complete the activity. Or, the assistance of 2 or more helpers is required for the patient to complete the activity. If activity was not attempted, code reason: 7-Patient Refused. 9-Not Applicable-not attempted and the patient did not perform the activity before the current illness, exacerbation or injury. 10-Not Attempted due to Environmental Limitations-(lack of equipment, weather restraints, etc.). 88-Not Attempted due to Medical Conditions or Safety Concerns. Roll Left & Right (QC): 6 Sit to Lying (QC): 6 Lying to Sitting/Side of Bed(Q: 6 Sit to Stand (QC): 4 (supervision for safety) Toilet Transfer (QC): 4 (supervision) Weight Bearing Right Lower Extremity: Right Weight Bearing/Tolerated Left Lower Extremity: Left Full Weight Bearing Gait Training Does the Patient Walk?: Yes Distance: 75 Walk 10 feet (QC): 4 Walk 50 ft with 2 Turns(QC): 4 Gait Persons Needed: 1 (supervision) Gait Assistive Device: FWW Pt ambulating on toes, no heel strike without TKE on (R). No change despite cues and education. When attempting step, Pt maximally ER (R) hip despite cues to properly sequence. Pt unwilling to attempt step stating she was unable. Wheelchair Training Does the Pt Use a Wheelchair?: No Type of Wheelchair: N/A Treatments Gait training with FWW, transfer training, attempted steps. Pt returned to bed with needs met. Assessment Current Status: Fair Progress Pt self limiting this date. Gait antalgic but no improvement with cues. PT Educational Consultant Goals Care Home Goals PT Care Home Goals Time Frame: Dec 01, 2022 Roll Left & Right (QC): 6 Sit to Lying (QC): 6 Lying-Sitting on Side/Bed(QC): 6 Sit to Stand (QC): 6 Chair/Vgx-pk-Podpm Xfer(QC): 6 Walk 10 feet (QC): 6 Walk 50ft with 2 Turns (QC): 6 Walk 150 ft (QC): 6 PT Plan Problem List Problem List: Activity Tolerance, Functional Strength, Safety, Balance, Gait, Transfer, Bed Mobility, ROM Treatment/Plan Treatment Plan: Continue Plan of Care Treatment Plan: Bed Mobility, Education, Functional Activity Tamara, Functional Strength, Gait, Safety, Therapeutic Exercise, Transfers Treatment Duration: Dec 01, 2022 Frequency: 11 times per week Estimated Hrs Per Day: .25 hour per day Patient and/or Family Agrees t: Yes Safety Risks/Education Patient Education: Correct Positioning Teaching Recipient: Patient Teaching Methods: Discussion Response to Teaching: Reinforcement Needed Time Time In: 842 Time Out: 927 DATE: Nov 27, 2022 Total Billed Treatment Time: 45 Total Billed Treatment 1, GT x 2, FA ROMEO RAMIREZ DPT Nov 27, 2022 12:26
== END 2022-11-27 11:56 | disposition home health service (06) | DRG 470 ==
LOC: 4TH 06:06 → SURG 06:07 → 4TH 10:24
PROVIDERS: ADMIT Orthopaedic Surgery; ATTEND Orthopaedic Surgery
PROC: 0SRC0J9 Replacement of Right Knee Joint with Synthetic Substitute, Cemented, Open Approach (ICD-10-PCS; principal; 2022-11-24 07:32)
DX: M17.11 Unilateral primary osteoarthritis, right knee (principal); A69.20 Lyme disease, unspecified; Z88.5 Allergy status to narcotic agent; Z91.041 Radiographic dye allergy status; E78.00 Pure hypercholesterolemia, unspecified; I10 Essential (primary) hypertension; G43.909 Migraine, unspecified, not intractable, without status migrainosus; E03.9 Hypothyroidism, unspecified; E11.9 Type 2 diabetes mellitus without complications; F41.9 Anxiety disorder, unspecified; F32.A Depression, unspecified; M79.7 Fibromyalgia; D64.9 Anemia, unspecified; R00.0 Tachycardia, unspecified; G47.30 Sleep apnea, unspecified
CPT/HCPCS: 36415; 73560; 80053; 85014; 85018; 85025; 86850; 86900; 86901; 90686; 94664

== ENCOUNTER 2023-03-09 14:36 | Emergency (ER) | payer MEDICARE, MEDICAID ==
[~2023-03-09] VITALS: Ht 167 cm; Wt 93.7 kg
[~2023-03-09 14:36] MED LIST changes: +DULO60CA59 PO; +LISI10TA25 PO; +OXYC1TAB16 PO; +QUET100T33 PO; +TRM50T PO
[2023-03-09] MEDS ORDERED: NS IV 1000 ML 1,000 ML IV STA (14:45)
[2023-03-09] MEDS ORDERED: ASPIRIN 81 MG CHEW (CHILDREN'S ASA) PO ONE (14:45)
[2023-03-09 14:56] LABS: WHITE BLOOD COUNT 9.1 10^3/uL (4.3-11.0)
[2023-03-09 14:57] LABS: BASOPHILS % (AUTO) 0 % (0-10); EOSINOPHILS % (AUTO) 3 % (0-10); HEMATOCRIT 39 % (35-52); HEMOGLOBIN 13.1 g/dL (11.5-16.0); LYMPHOCYTES % (AUTO) 34 % (12-44); MEAN CORPUSCULAR HEMOGLOBIN 30 pg (25-34); MEAN CORPUSCULAR HGB CONC 34 g/dL (32-36); MEAN CORPUSCULAR VOLUME 88 fL (80-99); MEAN PLATELET VOLUME 9.3 fL (9.0-12.2); MONOCYTES % (AUTO) 6 % (0-12); NEUTROPHILS % (AUTO) 56 % (42-75); PLATELET COUNT 338 10^3/uL (130-400)
[2023-03-09 14:58] LABS: EOSINOPHILS # (AUTO) 0.2 10^3/uL (0.0-0.3); LYMPHOCYTES # (AUTO) 3.1 X 10^3 (1.0-4.0); MONOCYTES # (AUTO) 0.6 X 10^3 (0.0-1.0); NEUTROPHILS # (AUTO) 5.1 X 10^3 (1.8-7.8)
--- NOTE | 2023-03-09 14:59 | Diagnostic Imaging Report ---
INDICATION: Chest pressure. COMPARISON: Exam compared to 06/18/2021. FINDINGS: Heart and lungs appeared normal. No failure, effusion, or pneumothorax. IMPRESSION: Negative. Dictated by: Dictated on workstation # [id number]
--- NOTE | 2023-03-09 15:03 | ED Chest Pain ---
General Chief Complaint: Chest Pain Stated Complaint: CHEST PAIN Nursing Triage Note: PT REPORTS SHE STARTED HAVING SOME CHEST PRESSURE THIS AM. REPORTS SHE TOOK 2 NITRO AT HOME BUT HAS NOT RELIEVED THE PRESSURE. Source: patient History of Present Illness Date Seen by Provider: Mar 09, 2023 Time Seen by Provider: 14:35 Initial Comments 62-year-old female presenting with complaints of chest pressure that is been present since early to mid morning. She states it has been constant since it started. She was just in her bed watching TV when the pressure started. She denies having any nausea, vomiting, increased cough, fever, chills, radiation of the pressure, anything making the pressure better or worse. She did take nitroglycerin because it was prescribed by Dr. Ochoa when she last saw him because she was having pressure in her chest at times then. He prescribed the nitroglycerin for her and advised her to check back with Dr. Kirby for Cardiology. Timing/Duration: 4-6 hours Severity/Quality: severe, pressure Radiation: no radiation Activities at Onset: rest Prior CP/Workup: non-cardiac, echocardiography, stress test Modifying Factors: improves with other (she denies any thing making the pressure in chest better or worse. she did take nitroglycerin without improvement) ASA po WORSHIP DIRECTOR: No NTG SL WORSHIP DIRECTOR: Yes Associated Symptoms: No abdominal pain, No back pain, No diaphoresis, No dizziness, No edema, No fatigue, No fever/chills, No headache, No heartburn, No nausea/vomiting, No rash; shortness of breath; No swelling/lump in chest, No syncope, No weakness Allergies and Home Medications Allergies Coded Allergies: iodine (Verified Allergy, Severe, BLISTERS, 11/24/22) povidone-iodine (Verified Allergy, Unknown, RASH, 11/24/22) galcanezumab-gnlm (Verified Allergy, Itching, 11/24/22) codeine (Verified Adverse Reaction, Unknown, HALLUCINATIONS, 11/24/22) divalproex sodium (Verified Adverse Reaction, Unknown, HALLUCINATIONS, 11/24/22) Uncoded Allergies: IODINATED CONTRAST- ORAL AND IV DYE (Allergy, Rash, 11/24/22) Patient Home Medication List Home Medication List Reviewed: Yes Atogepant (Qulipta) 60 Mg Tablet, 60 MG PO HS, (Reported) Entered as Reported by: CHAU WATSON on 11/12/22 1046 Buspirone HCl (Buspirone HCl) 10 Mg Tablet, 10 MG PO TID, (Reported) Entered as Reported by: TIFFANIE KUMAR on 02/10/211612 Cholecalciferol (Vitamin D3) (Vitamin D3) 25 Mcg (1000 Unit) Tablet, 25 MCG PO DAILY, (Reported) Entered as Reported by: CHAU WATSON on 06/04/22919 Cyclobenzaprine HCl (Cyclobenzaprine HCl) 10 Mg Tablet, 0.5-1 TAB PO TID PRN for PAIN-MILD (1-4), (Reported) Entered as Reported by: TIFFANIE KUMAR on 02/10/211612 Duloxetine HCl (Duloxetine HCl) 60 Mg Capsule.dr, 60 MG PO BID, (Reported) Entered as Reported by: Mary Ann Pacheco on 11/24/22 114 Esomeprazole Magnesium (Esomeprazole Magnesium) 40 Mg Capsule.dr, 40 MG PO BID, (Reported) Entered as Reported by: TIFFANIE KUMAR on 02/10/211612 Fexofenadine HCl (Shahrzad Allergy) 180 Mg Tablet, 180 MG PO DAILY, (Reported) Entered as Reported by: CHAU WATSON on 06/04/22919 Gabapentin (Gabapentin) 100 Mg Capsule, 100 MG PO TID, (Reported) Entered as Reported by: CHAU WATSON on 06/04/22919 Ibuprofen (Ibuprofen) 800 Mg Tablet, 800 MG PO Q8H PRN for PAIN-MILD, (Reported) Entered as Reported by: CHAU WATSON on 06/04/22919 Levothyroxine Sodium (Euthyrox) 125 Mcg Tablet, 125 MCG PO DAILY, (Reported) Entered as Reported by: CHAU WATSON on 11/12/22 104 Lisinopril (Lisinopril) 10 Mg Tablet, 10 MG PO DAILY, (Reported) Entered as Reported by: Mary Ann Pacheco on 11/24/22 114 Metformin HCl (Metformin HCl) 500 Mg Tablet, 500 MG PO DAILY, (Reported) Entered as Reported by: TIFFANIE KUMAR on 02/10/21 161 Metoprolol Succinate (Metoprolol Succinate) 100 Mg Tab.er.24h, 150 MG PO DAILY, (Reported) Entered as Reported by: CHAU WATSON on 06/04/22 0920 Mirtazapine (Remeron) 30 Mg Tab.rapdis, 30 MG PO HS, (Reported) Entered as Reported by: CHAU WATSON on 11/12/22 1046 Montelukast Sodium (Montelukast Sodium) 10 Mg Tablet, 10 MG PO DAILY, (Reported) Entered as Reported by: TIFFANIE KUMAR on 02/10/21 1613 Mv-Mn/Folic Acid/Calcium/Vit K (Women's 50 Plus Multivit Tab) 400 Mcg-500 Mg Calcium-20 Mcg Tablet, 1 EACH PO DAILY, (Reported) Entered as Reported by: CHAU WATSON on 11/12/22 1046 Oxycodone HCl/Acetaminophen (Percocet 7.5-325 mg Tablet) 1 Each Tablet, 1 TAB PO Q6H PRN for PAIN-MODERATE Prescribed by: FAN LEZAMA on 11/27/22 0646 Potassium Chloride (K-Tab ER) 10 Meq Tablet.er, 20 MEQ PO BID, (Reported) Entered as Reported by: TIFFANIE KUMAR on 02/10/21 1613 Quetiapine Fumarate (Quetiapine Fumarate) 100 Mg Tablet, 2-3 TAB PO HS, (Reported) Entered as Reported by: Mary Ann Pacheco on 11/24/22 1144 Simvastatin (Simvastatin) 20 Mg Tablet, 20 MG PO DAILY, (Reported) Entered as Reported by: TIFFANIE KUMAR on 02/10/21 1613 Tramadol HCl (Tramadol HCl) 50 Mg Tablet, 50 MG PO Q4H PRN for PAIN- BREAKTHROUGH, (Reported) Entered as Reported by: Mary Ann Pacheco on 11/24/22 1128 Review of Systems Review of Systems Constitutional: No chills, No dizziness, No fever EENTM: No Symptoms Reported Respiratory: See HPI Cardiovascular: See HPI Gastrointestinal: Denies Nausea, Denies Vomiting Genitourinary: No Symptoms Reported Musculoskeletal: no symptoms reported Skin: No change in color Psychiatric/Neurological: Anxiety Endocrine: No Symptoms Reported Hematologic/Lymphatic: No Symptoms Reported Past Jmcxdei-Zelnfc-Hrwdxo Hx Patient Social History Tobacco Use?: No Use of E-Cig and/or Vaping dev: No Substance use?: No Alcohol Use?: No Pt feels they are or have been: No Immunizations Up To Date Tetanus Booster (TDap): Unknown PED Vaccines UTD: Yes First/Initial COVID19 Vaccinat: 2020 Second COVID19 Vaccination Reece: 2020 Third COVID19 Vaccination Date: 2021 Seasonal Allergies Seasonal Allergies: Yes Past Medical History Surgery/Hospitalization HX: Carpal Tunnel Release Left Ulna Surgery Right Shoulder Surgery Left rotator cuff surgery [facility] Tubal ligation Cervical Fusion Surgeries: Yes (C1-C6 FUSED. 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 oz. 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 Norm as Tested Skin: Normal Color, Warm/Dry Progress/Results/Core Measures Results/Orders Lab Results Laboratory Tests Test 03/09/23 14:40 Range/Units White Blood Count 9.1 4.3-11.0 10^3/uL Red Blood Count 4.38 3.80-5.11 10^6/uL Hemoglobin 13.1 11.5-16.0 g/dL Hematocrit 39 35-52 % Mean Corpuscular Volume 88 80-99 fL Mean Corpuscular Hemoglobin 30 25-34 pg Mean Corpuscular Hemoglobin Concent 34 32-36 g/dL Red Cell Distribution Width 13.2 10.0-14.5 % Platelet Count 338 130-400 10^3/uL Mean Platelet Volume 9.3 9.0-12.2 fL Neutrophils (%) (Auto) 56 42-75 % Lymphocytes (%) (Auto) 34 12-44 % Monocytes (%) (Auto) 6 0-12 % Eosinophils (%) (Auto) 3 0-10 % Basophils (%) (Auto) 0 0-10 % Neutrophils # (Auto) 5.1 1.8-7.8 X 10^3 Lymphocytes # (Auto) 3.1 1.0-4.0 X 10^3 Monocytes # (Auto) 0.6 0.0-1.0 X 10^3 Eosinophils # (Auto) 0.2 0.0-0.3 10^3/uL Basophils # (Auto) 0.0 0.0-0.1 10^3/uL Prothrombin Time 12.7 12.2-14.7 SEC INR Comment 0.9 0.8-1.4 Activated Partial Thromboplast Time 26 24-35 SEC Sodium Level 139 135-145 MMOL/L Potassium Level 4.0 3.6-5.0 MMOL/L Chloride Level 103 98-107 MMOL/L Carbon Dioxide Level 24 21-32 MMOL/L Anion Gap 12 5-14 MMOL/L Blood Urea Nitrogen 15 7-18 MG/DL Creatinine 0.69 0.60-1.30 MG/DL Estimat Glomerular Filtration Rate 99 BUN/Creatinine Ratio 22 Glucose Level 190 H 70-105 MG/DL Calcium Level 9.3 8.5-10.1 MG/DL Corrected Calcium 9.1 8.5-10.1 MG/DL Magnesium Level 1.7 1.6-2.4 MG/DL Total Bilirubin 0.2 0.1-1.0 MG/DL Aspartate Amino Transf (AST/SGOT) 14 5-34 U/L Alanine Aminotransferase (ALT/SGPT) 16 0-55 U/L Alkaline Phosphatase 116 40-136 U/L Troponin I < 0.30 <0.30 NG/ML Pro-B-Type Natriuretic Peptide 64.6 <125.0 PG/ML Total Protein 7.2 6.4-8.2 GM/DL Albumin 4.3 3.2-4.5 GM/DL Lipase 29 8-78 U/L My Orders Orders - MARICRUZ BUSTILLOS MD Cbc With Automated Diff (03/09/23 14:45) Magnesium (03/09/23 14:45) Chest 1 View Ap/Pa Only (03/09/23 14:45) Ekg Tracing (03/09/23 14:45) Comprehensive Metabolic Panel (03/09/23 14:45) Protime With Inr (03/09/23 14:45) Partial Thromboplastin Time (03/09/23 14:45) O2 (03/09/23 14:45) Monitor-Rhythm Ecg Trace Only (03/09/23 14:45) Aspirin Chewable Tablet (Baby Aspirin Ch (03/09/23 14:45) Ed Iv/Invasive Line Start (03/09/23 14:45) Lipase (03/09/23 14:45) Troponin I Fs (03/09/23 14:45) Probnp Fs (03/09/23 14:45) Ns Iv 1000 Ml (Sodium Chloride 0.9%) (03/09/23 14:45) Metoprolol Tartrate Injection (Lopressor (03/09/23 15:20) Medications Given in ED Current Medications Medications Dose Ordered Sig/Erika Route Start Time Stop Time Status Last Admin Dose Admin Aspirin 324 mg ONCE ONCE PO 03/09/23 14:45 03/09/23 14:47 DC 03/09/23 14:54 324 MG Vital Signs/I&O 03/09/23 03/09/23 03/09/23 14:36 14:48 16:02 Temp 36.6 36.6 Pulse 120 91 Resp 16 16 B/P (MAP) 147/77 (100) 120/60 Pulse Ox 97 99 O2 Delivery Room Air Room Air Room Air Blood Pressure Mean: 100 Progress Progress Note #1: Progress Note Potential diagnosis of anxiety, atypical chest pain, myocardial infarction, pneumonia, pleural effusion, lung mass, GERD. Obtain electrocardiogram to look at patient's heart rate and rhythm as well as placed on cardiac telemetry monitoring. On my initial interpretation of her cardiac telemetry monitoring she is showing a sinus tachycardia with heart rate in the 110s. Obtain peripheral IV access and send labs for complete blood count, comprehensive metabolic panel, troponin I, proBNP, Magnesium, Coagulation factors, Lipase. Chest xray to look for structural changes to account for her symptoms. Administer aspirin 324 mg po while other tests are pending. Review electronic medical record for cardiac stress testing and echocardiograms from Dr. Kirby with Cardiology. Progress Note #2: Time: 14:51 Progress Note On my personal interpretation and review of her 1 view chest x-ray she had no acute infiltrate or effusions. Appeared stable from prior chest x-ray images. 1517 I have reviewed the radiologist report on the chest x-ray and they agree that there is no acute process. Complete blood count shows a hemoglobin of 13.1 so she is not anemic. Her white blood cell count is not elevated at 9.1. Her coagulation factors were not elevated to show a coagulopathy. I reviewed cardiology notes from Dr. Kirby where patient had an echocardiogram on and nuclear stress test on. She had no acute ischemic findings or concerns with the stress test and her echocardiogram had not shown heart failure or pulmonary hypertension. Progress Note #3: Time: 15:48 Progress Note On my personal review and interpretation of the comprehensive metabolic panel she had no acute significant abnormality with her electrolytes other than elevated glucose to 190. Her magnesium was slightly low at 1.7. Her troponin after more than 6 hours chest pressure was still negative at less than 0.3. Her proBNP was not elevated at 65. Lipase was normal at 24 to help rule out pancreatitis. Patient was given metoprolol 5 mg IV x1 as her heart rate was showing slight tachycardia just over 100 bpm and she was complaining of chest pressure. After the metoprolol 5 mg IV and a 1 L normal saline IV fluid bolus for hydration she had a heart rate down to 90 bpm. Blood pressure was stable at 127/67 and oxygen saturation remained 98 to 100% on room air. We will reassure patient and encourage follow-up with Dr. Kirby as had already been suggested when she saw Dr. OCHOA at the beginning of February. Advised to take magnesium oxide twice a day for 1 week and see if that helps her symptoms in addition to follow up with cardiology. Initial ECG Impression Date: Mar 09, 2023 Initial ECG Impression Time: 14:43 Initial ECG Rate: 110 Initial ECG Comparisson: Unchanged (06/18/2021) Comment On my personal interpretation and review the electrocardiogram shows sinus tachycardia with occasional PVCs with a heart rate of 110 bpm. NV interval 140 ms. QT interval 304 ms with a QTc interval 369 ms. There is no acute ST elevation. Overall appears similar to tracing from June 18, 2021. Diagnostic Imaging Diagonstic Imaging: Xray Plain Films/CT/US/NM/MRI: chest Comments NAME: DELL LYLES [facility] REC#: [id number] PT STATUS: REG ER : 1960 PHYSICIAN: MARICRUZ BUSTILLOS MD ADMIT DATE: 03/09/23/ER FS Draft Date of Exam:03/09/23 CHEST 1 VIEW AP/PA ONLY INDICATION: Chest pressure. COMPARISON: Exam compared to 06/18/2021. FINDINGS: Heart and lungs appeared normal. No failure, effusion, or pneumothorax. IMPRESSION: Negative. Dictated on workstation # [id number] Dict: 03/09/23 1455 Trans: 03/09/23 1459 [id number] [id number] Interpreted by: NANETTE JACOBSON Electronically signed by: Reviewed: Reviewed by Me Departure Impression Primary Impression: Chest pressure Additional Impression: Hypomagnesemia Disposition: 01 HOME, SELF-CARE Condition: Stable Departure-Patient Inst. Decision time for Depature: 15:55 Referrals: DWAINE OCHOA MD (PCP/Family) Primary Care Physician Patient Instructions: Chest Pain, Adult ED, Low Magnesium Level (DC) Add. Discharge Instructions: Your heart tests today are not showing heart damage or a heart attack. Your chest xray is not showing fluid build up or infection Your Magnesium was just below a normal level at 1.7 today. This could contribute to having a faster heart beat or extra heartbeats. Take over the counter magnesium supplement such as Magnesium Oxide twice a day for the next week. Call and set up appointment with Dr. Kirby for follow up on your recurrent episodes of chest pressure. All discharge instructions reviewed with patient and/or family. Voiced understanding. MARICRUZ BUSTILLOS MD Mar 09, 2023 15:03
[2023-03-09 15:04] LABS: INR 0.9 (0.8-1.4); PROTHROMBIN TIME PATIENT 12.7 SEC (12.2-14.7)
[2023-03-09] MEDS ORDERED: meTOprolol 5 MG/5 ML (LOPRESSOR) VIAL IV STA (15:20)
[2023-03-09 15:25] LABS: ALBUMIN 4.3 GM/DL (3.2-4.5); BILIRUBIN,TOTAL 0.2 MG/DL (0.1-1.0); CALCIUM 9.3 MG/DL (8.5-10.1); CREATININE SERUM 0.69 MG/DL (0.60-1.30); MAGNESIUM 1.7 MG/DL (1.6-2.4); TOTAL PROTEIN 7.2 GM/DL (6.4-8.2)
[2023-03-09 16:02] VITALS: BP 120/60
== END 2023-03-09 16:08 | disposition home or self-care (01) ==
LOC: EDUNIT# 14:36 → ER FS 14:37
DX: R07.89 Other chest pain (principal); E83.42 Hypomagnesemia; R00.0 Tachycardia, unspecified; I10 Essential (primary) hypertension; E11.9 Type 2 diabetes mellitus without complications
CPT/HCPCS: 36415; 71045; 80053; 83690; 83735; 83880; 84484; 85025; 85610; 85730; 93005; 93041

== ENCOUNTER → 2023-05-02 | Outpatient (CLI) | payer MEDICARE, MEDICAID | LOC: CARD 09:17 | PROVIDERS: ATTEND Internal Medicine Cardiovascular Disease | DX: I07.1 Rheumatic tricuspid insufficiency (principal); I11.9 Hypertensive heart disease without heart failure | CPT/HCPCS: 93306 ==

== ENCOUNTER 2023-08-02 21:43 | Emergency (ER) | payer MEDICARE, MEDICAID ==
[~2023-08-02] VITALS: Ht 167.7 cm; Wt 82.2 kg
[~2023-08-02 21:43] MED LIST changes: +MIRT-120 PO; -MRTZ30T1 PO; +POTA-185 PO; -POTA10TA PO
[2023-08-02] MEDS ORDERED: KETOROLAC INJ 15 MG/ML VIAL IVP STA (21:52)
[2023-08-02] MEDS ORDERED: NS IV 1000 ML 1,000 ML IV STA ×2 (21:52→23:43)
[2023-08-02 21:57] LABS: BASOPHILS # (AUTO) 0.1 10^3/uL (0.0-0.1); BASOPHILS % (AUTO) 1 % (0-10); EOSINOPHILS # (AUTO) 0.2 10^3/uL (0.0-0.3); EOSINOPHILS % (AUTO) 3 % (0-10); HEMATOCRIT 38 % (35-52); HEMOGLOBIN 12.7 g/dL (11.5-16.0); LYMPHOCYTES # (AUTO) 2.8 10^3/uL (1.0-4.0); LYMPHOCYTES % (AUTO) 36 % (12-44); MEAN CORPUSCULAR HEMOGLOBIN 31 pg (25-34); MEAN CORPUSCULAR HGB CONC 33 g/dL (32-36); MEAN CORPUSCULAR VOLUME 92 fL (80-99); MEAN PLATELET VOLUME 8.9 fL (9.0-12.2); MONOCYTES # (AUTO) 0.6 10^3/uL (0.0-1.0); MONOCYTES % (AUTO) 7 % (0-12); NEUTROPHILS # (AUTO) 4.1 10^3/uL (1.8-7.8); NEUTROPHILS % (AUTO) 53 % (42-75); PLATELET COUNT 290 10^3/uL (130-400); WHITE BLOOD COUNT 7.7 10^3/uL (4.3-11.0)
--- NOTE | 2023-08-02 22:01 | ED Headache ---
General Chief Complaint: Head/Cervical Problems Stated Complaint: HEADACHE Source: patient, EMS History of Present Illness Date Seen by Provider: Aug 02, 2023 Time Seen by Provider: 21:44 Initial Comments 62-year-old female presenting by EMS from home with complaints of left-sided headache. She is laughing and joking with the EMS staff on arrival to the ED. She states that the pain started around 1600. She feels like she has tingling to the left side of her face and like her eye is "weird". She denies having any nausea or vomiting. She has had headaches on the left side previously but states usually it feels like an ice pick and then goes away quickly. She denies any fall or trauma today to trigger her headache. She has not tried taking any medication specifically for the headache and pain. She states that her daughter insisted that she come be evaluated in the emergency department so she called 911. Timing/Duration: 4-6 hours (Onset around 1600 tonight) Severity/Quality: moderate, throbbing Location: parietal (Left side) Prior Headaches/Recent Trauma: no recent headache/trauma Associated Symptoms: No confusion, No fatigue, No facial pain, No fever/chills, No flushing, No loss of consciousness, No nausea/vomiting, No nasal congestion, No nasal drainage, No numbness in legs/feet, No rash, No seizures, No sinus infection, No stiff neck, No vision changes, No weakness Allergies and Home Medications Allergies Coded Allergies: iodine (Verified Allergy, Severe, BLISTERS, 11/24/22) povidone-iodine (Verified Allergy, Unknown, RASH, 11/24/22) galcanezumab-gnlm (Verified Allergy, Itching, 11/24/22) codeine (Verified Adverse Reaction, Unknown, HALLUCINATIONS, 11/24/22) divalproex sodium (Verified Adverse Reaction, Unknown, HALLUCINATIONS, 11/24/22) Uncoded Allergies: IODINATED CONTRAST- ORAL AND IV DYE (Allergy, Rash, 11/24/22) Patient Home Medication List Home Medication List Reviewed: Yes Atogepant (Qulipta) 60 Mg Tablet, 60 MG PO HS, (Reported) Entered as Reported by: CHAU WATSON on 11/12/22 1046 Buspirone HCl (Buspirone HCl) 10 Mg Tablet, 10 MG PO TID, (Reported) Entered as Reported by: TIFFANIE KUMAR on 02/10/211612 Cholecalciferol (Vitamin D3) (Vitamin D3) 25 Mcg (1000 Unit) Tablet, 25 MCG PO DAILY, (Reported) Entered as Reported by: CHAU WATSON on 06/04/22919 Cyclobenzaprine HCl (Cyclobenzaprine HCl) 10 Mg Tablet, 0.5-1 TAB PO TID PRN for PAIN-MILD (1-4), (Reported) Entered as Reported by: TIFFANIE KUMAR on 02/10/211612 Duloxetine HCl (Duloxetine HCl) 60 Mg Capsule.dr, 60 MG PO BID, (Reported) Entered as Reported by: Mary Ann Pacheco on 11/24/22 1144 Esomeprazole Magnesium (Esomeprazole Magnesium) 40 Mg Capsule.dr, 40 MG PO BID, (Reported) Entered as Reported by: TIFFANIE KUMAR on 02/10/211612 Fexofenadine HCl (Shahrzad Allergy) 180 Mg Tablet, 180 MG PO DAILY, (Reported) Entered as Reported by: CHAU WATSON on 06/04/22 09 Gabapentin (Gabapentin) 100 Mg Capsule, 100 MG PO TID, (Reported) Entered as Reported by: CHAU WATSON on 06/04/22 09 Ibuprofen (Ibuprofen) 800 Mg Tablet, 800 MG PO Q8H PRN for PAIN-MILD, (Reported) Entered as Reported by: CHAU WATSON on 06/04/22919 Levothyroxine Sodium (Euthyrox) 125 Mcg Tablet, 125 MCG PO DAILY, (Reported) Entered as Reported by: CHAU WATSON on 11/12/22 1046 Lisinopril (Lisinopril) 10 Mg Tablet, 10 MG PO DAILY, (Reported) Entered as Reported by: Mary Ann Pacheco on 11/24/22 114 Metformin HCl (Metformin HCl) 500 Mg Tablet, 500 MG PO DAILY, (Reported) Entered as Reported by: TIFFANIE KUMAR on 02/10/211612 Metoprolol Succinate (Metoprolol Succinate) 100 Mg Tab.er.24h, 150 MG PO DAILY, (Reported) Entered as Reported by: CHAU WATSON on 06/04/22 09 Mirtazapine (Remeron) 30 Mg Tab.rapdis, 30 MG PO HS, (Reported) Entered as Reported by: CHAU WATSON on 11/12/22 1046 Montelukast Sodium (Montelukast Sodium) 10 Mg Tablet, 10 MG PO DAILY, (Reported) Entered as Reported by: TIFFANIE KUMAR on 02/10/21 1613 Mv-Mn/Folic Acid/Calcium/Vit K (Women's 50 Plus Multivit Tab) 400 Mcg-500 Mg Calcium-20 Mcg Tablet, 1 EACH PO DAILY, (Reported) Entered as Reported by: CHAU WATSON on 11/12/22 1046 Oxycodone HCl/Acetaminophen (Percocet 7.5-325 mg Tablet) 1 Each Tablet, 1 TAB PO Q6H PRN for PAIN-MODERATE Prescribed by: FAN LEZAMA on 11/27/22 0646 Potassium Chloride (K-Tab ER) 10 Meq Tablet.er, 20 MEQ PO BID, (Reported) Entered as Reported by: TIFFANIE KUMAR on 02/10/21 1613 Quetiapine Fumarate (Quetiapine Fumarate) 100 Mg Tablet, 2-3 TAB PO HS, (Reported) Entered as Reported by: Mary Ann Pacheco on 11/24/22 1144 Simvastatin (Simvastatin) 20 Mg Tablet, 20 MG PO DAILY, (Reported) Entered as Reported by: TIFFANIE KUMAR on 02/10/21 1613 Tramadol HCl (Tramadol HCl) 50 Mg Tablet, 50 MG PO Q4H PRN for PAIN- BREAKTHROUGH, (Reported) Entered as Reported by: Mary Ann Pacheco on 11/24/22 1128 Review of Systems Review of Systems Constitutional: No chills, No dizziness, No fever Eyes: Denies Blurred Vision, Denies Photophobia, Denies Vision Changes; Other (Reports that her left eye feels "weird") Ears, Nose, Mouth, Throat: denies ear pain, denies ear discharge, denies nose pain, denies nose discharge, denies epistaxis Respiratory: no symptoms reported Cardiovascular: no symptoms reported Gastrointestinal: no symptoms reported Genitourinary: no symptoms reported Musculoskeletal: no symptoms reported Skin: no symptoms reported Psychiatric/Neurological: See HPI Past Wppstby-Uhzhgx-Dofefl Hx Immunizations Up To Date Tetanus Booster (TDap): Unknown PED Vaccines UTD: Yes First/Initial COVID19 Vaccinat: 2020 Second COVID19 Vaccination Reece: 2020 Third COVID19 Vaccination Date: 2021 Seasonal Allergies Seasonal Allergies: Yes Past Medical History Surgery/Hospitalization HX: Carpal Tunnel Release Left Ulna Surgery Right Shoulder Surgery Left rotator cuff surgery [facility] Tubal ligation Cervical Fusion Surgeries: Yes (C1-C6 FUSED. 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 oz. 72.472522og; 33.00 BMI Method:Stated General Appearance: WD/WN, no apparent distress HEENT: PERRL/EOMI, pharynx normal Neck: non-tender, full range of motion, supple, normal inspection Cardiovascular: normal peripheral pulses, regular rate, rhythm Respiratory: chest non-tender, lungs clear, normal breath sounds Gastrointestinal: normal bowel sounds, non tender, soft, no pulsatile mass Back: no CVA tenderness Extremities: normal range of motion, non-tender, normal capillary refill Psychiatric: alert, oriented x 3 Crainal Nerves: normal hearing, normal speech, PERRL Coordination/Gait: normal gait Motor/Sensory: no motor deficit, no sensory deficit (Sensation intact to light touch. She states that the left side of her face is tingling) Skin: normal color, warm/dry Progress/Results/Core Measures Results/Orders Lab Results Laboratory Tests Test 08/02/23 21:50 Range/Units White Blood Count 7.7 4.3-11.0 10^3/uL Red Blood Count 4.16 3.80-5.11 10^6/uL Hemoglobin 12.7 11.5-16.0 g/dL Hematocrit 38 35-52 % Mean Corpuscular Volume 92 80-99 fL Mean Corpuscular Hemoglobin 31 25-34 pg Mean Corpuscular Hemoglobin Concent 33 32-36 g/dL Red Cell Distribution Width 12.3 10.0-14.5 % Platelet Count 290 130-400 10^3/uL Mean Platelet Volume 8.9 L 9.0-12.2 fL Immature Granulocyte % (Auto) 0 % Neutrophils (%) (Auto) 53 42-75 % Lymphocytes (%) (Auto) 36 12-44 % Monocytes (%) (Auto) 7 0-12 % Eosinophils (%) (Auto) 3 0-10 % Basophils (%) (Auto) 1 0-10 % Neutrophils # (Auto) 4.1 1.8-7.8 10^3/uL Lymphocytes # (Auto) 2.8 1.0-4.0 10^3/uL Monocytes # (Auto) 0.6 0.0-1.0 10^3/uL Eosinophils # (Auto) 0.2 0.0-0.3 10^3/uL Basophils # (Auto) 0.1 0.0-0.1 10^3/uL Immature Granulocyte # (Auto) 0.0 0.0-0.1 10^3/uL Prothrombin Time 12.5 12.2-14.7 SEC INR Comment 0.9 0.8-1.4 Activated Partial Thromboplast Time 28 24-35 SEC Sodium Level 144 135-145 MMOL/L Potassium Level 4.2 3.6-5.0 MMOL/L Chloride Level 105 98-107 MMOL/L Carbon Dioxide Level 27 21-32 MMOL/L Anion Gap 12 5-14 MMOL/L Blood Urea Nitrogen 14 7-18 MG/DL Creatinine 0.87 0.60-1.30 MG/DL Estimat Glomerular Filtration Rate 76 BUN/Creatinine Ratio 16 Glucose Level 114 H 70-105 MG/DL Calcium Level 10.0 8.5-10.1 MG/DL Corrected Calcium 9.7 8.5-10.1 MG/DL Magnesium Level 1.8 1.6-2.4 MG/DL Total Bilirubin 0.2 0.1-1.0 MG/DL Aspartate Amino Transf (AST/SGOT) 19 5-34 U/L Alanine Aminotransferase (ALT/SGPT) 22 0-55 U/L Alkaline Phosphatase 98 40-136 U/L Total Protein 6.9 6.4-8.2 GM/DL Albumin 4.4 3.2-4.5 GM/DL My Orders Orders - MARICRUZ BUSTILLOS MD Cbc With Automated Diff (08/02/23 21:50) Magnesium (08/02/23 21:50) Comprehensive Metabolic Panel (08/02/23 21:50) Protime With Inr (08/02/23 21:50) Partial Thromboplastin Time (08/02/23 21:50) O2 (08/02/23 21:50) Ed Iv/Invasive Line Start (08/02/23:50) Ua Culture If Indicated (08/02/23 21:50) Ct Head Wo (08/02/23 21:50) Ns Iv 1000 Ml (Ns Iv 1000 Ml) (08/02/23:52) Ketorolac Injection (Ketorolac Injection (08/02/23:52) Morphine Injection (Morphine Injection (08/02/23 23:43) Ns Iv 1000 Ml (Ns Iv 1000 Ml) (08/02/23 23:43) Ondansetron Injection (Ondansetron Inj (08/02/23 23:43) Vital Signs/I&O 08/03/23 00:30 Pulse 84 Resp 16 B/P (MAP) 125/55 Pulse Ox 96 O2 Delivery Room Air Progress Progress Note #1: Progress Note Differential diagnosis includes atypical migraine, headache, intracranial hemorrhage, mass, stroke. Establish peripheral IV access and send labs for complete blood count, comprehensive metabolic profile, coagulation factors, urinalysis. CT scan of the head without IV contrast to look for acute abnormality that could be contributing to her pain. Administer normal saline 1 L IV fluid bolus for hydration at Toradol 15 mg IV for pain. Patient denies any nausea or vomiting. Progress Note #2: Time: 23:00 Progress Note Her complete blood count does not show any acute abnormalities to contribute to headache. Her comprehensive metabolic profile did not show any acute significant electrolyte abnormalities. On my personal review of the CT head without IV contrast I did not appreciate any acute hemorrhage, mass, fracture. Patient did tell the nurse that she felt like her headache was no better after medication here in the ED. She does take a shot for migraine headaches every night and has not had that prior to coming to the emergency department. Progress Note #3: Time: 23:[address] scan of the head does not show any acute process. No signs of stroke or bleeding or mass. Reassured patient she was given morphine 2 mg IV in addition to Zofran 4 mg IV for preventing nausea and vomiting after the morphine. Liter IV fluid was ordered and would help with hydration. Will have patient go home and rest in a cool dark room but reassured her that we are not seeing evidence of acute stroke or bleeding or mass. She does take a medicine every night to help with chronic headaches so encouraged her to take that when she gets home. Continue to push fluids and rest. If having continued pain or worsening symptoms she could return or check with primary care as they may need to refer her to a neurologist or get an MRI Diagnostic Imaging Diagonstic Imaging: CT Plain Films/CT/US/NM/MRI: head Comments CT head without IV contrast Impression: Normal head/brain CT. Read by radiologist Dr. Mir Lopez MD at 1344 and faxed at [phone] Reviewed: Reviewed [place] Hawk Study, Reviewed by Me Departure Impression Primary Impression: Left-sided headache Disposition: 01 HOME, SELF-CARE Condition: Stable Departure-Patient Inst. Decision time for Depature: 00:04 Referrals: SELFDWAINE MD (PCP/Family) Primary Care Physician Patient Instructions: Home Headache Remedies, Headache, Adult ED Add. Discharge Instructions: Try to rest in a cool dark room. Take your evening medicines when you get home. If you are still having pain or worsening symptoms you may need to get MRI or follow up with Neurology for testing beyond what is available in the Emergency department. All discharge instructions reviewed with patient and/or family. Voiced understanding. MARICRUZ BUSTILLOS MD Aug 02, 2023 22:01
[2023-08-02 22:16] LABS: INR 0.9 (0.8-1.4); PROTHROMBIN TIME PATIENT 12.5 SEC (12.2-14.7)
[2023-08-02 22:23] LABS: CREATININE SERUM 0.87 MG/DL (0.60-1.30); MAGNESIUM 1.8 MG/DL (1.6-2.4); POTASSIUM 4.2 MMOL/L (3.6-5.0)
[2023-08-02 22:24] LABS: ALBUMIN 4.4 GM/DL (3.2-4.5); BILIRUBIN,TOTAL 0.2 MG/DL (0.1-1.0); TOTAL PROTEIN 6.9 GM/DL (6.4-8.2)
[2023-08-02] MEDS ORDERED: ONDANSETRON INJECTION 4 MG/2 ML (SDV) IVP STA (23:43)
[2023-08-02] MEDS ORDERED: morphine INJ 10 MG/ML 1ML (SYR OR VIAL) IVP STA (23:43)
[2023-08-03 00:30] VITALS: BP 125/55
--- NOTE | 2023-08-03 07:11 | Diagnostic Imaging Report ---
PROCEDURE: CT head without contrast. TECHNIQUE: Multiple contiguous axial images were obtained through the brain without the use of intravenous contrast. Auto Exposure Controls were utilized during the CT exam to meet ALARA standards for radiation dose reduction. INDICATION: Left-sided head pain, tingling to left side of face. COMPARISON: 07/22/2021 FINDINGS: No intracranial hemorrhage. No intracranial mass, mass effect, midline shift, herniation, hydrocephalus, or extra-axial collection. No definite CT evidence of an acute ischemic infarction. The orbits are unremarkable. Postsurgical changes are partially visualized within the cervical spine. The paranasal sinuses are clear. The calvarium and extra calvarial soft tissues are unremarkable. IMPRESSION: No acute intracranial abnormality. Agree with preliminary interpretation. Dictated by: Dictated on workstation # [id number]
== END 2023-08-03 00:30 | disposition home or self-care (01) ==
LOC: EDUNIT# 21:43 → ER FS 21:44
DX: R51.9 Headache, unspecified (principal); Z86.69 Personal history of other diseases of the nervous system and sense organs
CPT/HCPCS: 36415; 70450; 80053; 83735; 85025; 85610; 85730; 96361; 96374; 96375

== ENCOUNTER 2023-08-12 10:34 | Emergency (ER) | payer MEDICARE, MEDICAID ==
[~2023-08-12] VITALS: Ht 165 cm; Wt 82.2 kg
[2023-08-12] MEDS ORDERED: KETOROLAC INJ 15 MG/ML VIAL IVP ONE (11:15)
[2023-08-12] MEDS ORDERED: NS IV 1000 ML 1,000 ML IV SCH (11:15)
[2023-08-12] MEDS ORDERED: METOCLOPRAMIDE INJ 10 MG/2 ML IVP ONE (11:15)
[2023-08-12] MEDS ORDERED: diphenhydrAMINE INJ 50 MG/ML VIAL IVP ONE (11:15)
--- NOTE | 2023-08-12 11:15 | ED Headache ---
General Chief Complaint: Head/Cervical Problems Stated Complaint: MIGRAINE Nursing Triage Note: PT TO RM 6 PT CO OF MIGRAINE, STATES WAS SEEN IN [facility] ED LAST WEEK. PT THIS RUBY STARTED ON TUESDAY NIGHT. PT STATES HAS CT SCAN OF HEAD LAST WEEK. PT RATES RUBY 08/07 Source: patient Exam Limitations: no limitations History of Present Illness Date Seen by Provider: Aug 12, 2023 Time Seen by Provider: 11:00 Initial Comments 62-year-old female presents to the ER with complaint of severe headache. She states that it started last week on Tuesday, she was seen at [facility] at that time. She states that the pain has been there since last Tuesday, but the pain became worse last night. Patient has a history of migraines, she goes to a headache clinic at [facility]. She called them today, they told her to take Flexeril, ibuprofen, Benadryl, and Phenergan. She states she took everything around 8 AM except for the Phenergan because she did not have any. She states that this migraine is similar to the migraine she had last week, states it is actually not as bad as it was last week. She reports some nausea, no vomiting. Denies fever, cough, chest pain, shortness of air, abdominal pain. Allergies and Home Medications Allergies Coded Allergies: iodine (Verified Allergy, Severe, BLISTERS, 11/24/22) povidone-iodine (Verified Allergy, Unknown, RASH, 11/24/22) galcanezumab-gnlm (Verified Allergy, Itching, 11/24/22) codeine (Verified Adverse Reaction, Unknown, HALLUCINATIONS, 11/24/22) divalproex sodium (Verified Adverse Reaction, Unknown, HALLUCINATIONS, 11/24/22) Uncoded Allergies: IODINATED CONTRAST- ORAL AND IV DYE (Allergy, Rash, 11/24/22) Patient Home Medication List Home Medication List Reviewed: Yes Atogepant (Qulipta) 60 Mg Tablet, 60 MG PO HS, (Reported) Entered as Reported by: CHAU WATSON on 11/12/22 1046 Buspirone HCl (Buspirone HCl) 10 Mg Tablet, 10 MG PO TID, (Reported) Entered as Reported by: TIFFANIE KUMAR on 02/10/21 1613 Cholecalciferol (Vitamin D3) (Vitamin D3) 25 Mcg (1000 Unit) Tablet, 25 MCG PO DAILY, (Reported) Entered as Reported by: CHAU WATSON on 06/04/22919 Cyclobenzaprine HCl (Cyclobenzaprine HCl) 10 Mg Tablet, 0.5-1 TAB PO TID PRN for PAIN-MILD (1-4), (Reported) Entered as Reported by: TIFFANIE KUMAR on 02/10/21 161 Duloxetine HCl (Duloxetine HCl) 60 Mg Capsule.dr, 60 MG PO BID, (Reported) Entered as Reported by: Mary Ann Pacheco on 11/24/22 114 Esomeprazole Magnesium (Esomeprazole Magnesium) 40 Mg Capsule.dr, 40 MG PO BID, (Reported) Entered as Reported by: TIFFANIE KUMAR on 02/10/211612 Fexofenadine HCl (Shahrzad Allergy) 180 Mg Tablet, 180 MG PO DAILY, (Reported) Entered as Reported by: CHAU WATSON on 06/04/22919 Gabapentin (Gabapentin) 100 Mg Capsule, 100 MG PO TID, (Reported) Entered as Reported by: CHAU WATSON on 06/04/22919 Ibuprofen (Ibuprofen) 800 Mg Tablet, 800 MG PO Q8H PRN for PAIN-MILD, (Reported) Entered as Reported by: CHAU WATSON on 06/04/22919 Levothyroxine Sodium (Euthyrox) 125 Mcg Tablet, 125 MCG PO DAILY, (Reported) Entered as Reported by: CHAU WATSON on 11/12/22 104 Lisinopril (Lisinopril) 10 Mg Tablet, 10 MG PO DAILY, (Reported) Entered as Reported by: Mary Ann Pacheco on 11/24/22 114 Metformin HCl (Metformin HCl) 500 Mg Tablet, 500 MG PO DAILY, (Reported) Entered as Reported by: TIFFANIE KUMAR on 02/10/21 161 Metoprolol Succinate (Metoprolol Succinate) 100 Mg Tab.er.24h, 150 MG PO DAILY, (Reported) Entered as Reported by: CHAU WATSON on 06/04/22 09 Mirtazapine (Remeron) 30 Mg Tab.rapdis, 30 MG PO HS, (Reported) Entered as Reported by: CHAU WATSON on 11/12/22 104 Montelukast Sodium (Montelukast Sodium) 10 Mg Tablet, 10 MG PO DAILY, (Reported) Entered as Reported by: TIFFANIE KUMAR on 02/10/21 1613 Mv-Mn/Folic Acid/Calcium/Vit K (Women's 50 Plus Multivit Tab) 400 Mcg-500 Mg Calcium-20 Mcg Tablet, 1 EACH PO DAILY, (Reported) Entered as Reported by: CHAU WATSON on 11/12/22 1046 Oxycodone HCl/Acetaminophen (Percocet 7.5-325 mg Tablet) 1 Each Tablet, 1 TAB PO Q6H PRN for PAIN-MODERATE Prescribed by: FAN LEZAMA on 11/27/22 0646 Potassium Chloride (K-Tab ER) 10 Meq Tablet.er, 20 MEQ PO BID, (Reported) Entered as Reported by: TIFFANIE KUMAR on 02/10/21 161 Quetiapine Fumarate (Quetiapine Fumarate) 100 Mg Tablet, 2-3 TAB PO HS, (Reported) Entered as Reported by: Mary Ann Pacheco on 11/24/22 1144 Simvastatin (Simvastatin) 20 Mg Tablet, 20 MG PO DAILY, (Reported) Entered as Reported by: TIFFANIE KUMAR on 02/10/21 161 Tramadol HCl (Tramadol HCl) 50 Mg Tablet, 50 MG PO Q4H PRN for PAIN- BREAKTHROUGH, (Reported) Entered as Reported by: Mary Ann Pacheco on 11/24/22 1128 Review of Systems Review of Systems Constitutional: see HPI Past Quksonz-Poigug-Ljniie Hx Patient Social History Tobacco Use?: No Substance use?: No Alcohol Use?: No Pt feels they are or have been: No Immunizations Up To Date Tetanus Booster (TDap): Unknown PED Vaccines UTD: Yes First/Initial COVID19 Vaccinat: date unknown Second COVID19 Vaccination Reece: date unknown Third COVID19 Vaccination Date: date unknown Seasonal Allergies Seasonal Allergies: Yes Past Medical History Surgery/Hospitalization HX: L shoulder rotator cuff, R TKR, L ulna, Cholecystectomy, Tubal ligation, R shoulder surgery, Cervical neck surgery, DM Type II, HTN, Migraines Surgeries: Yes (C1-C6 FUSED. 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 oz. 72.530902zq; 30.00 BMI Method:Stated General Appearance: WD/WN, no apparent distress HEENT: PERRL/EOMI, TMs normal Neck: supple, normal inspection Cardiovascular: regular rate, rhythm Respiratory: lungs clear, normal breath sounds, no respiratory distress, no accessory muscle use Extremities: normal range of motion, normal inspection Psychiatric: alert Crainal Nerves: normal hearing, normal speech, PERRL Motor/Sensory: no motor deficit, no sensory deficit Skin: normal color, warm/dry Progress/Results/Core Measures Results/Orders My Orders Orders - DEREK WOODRUFF APRN Ketorolac Injection (Ketorolac Injection (08/12/23 11:15) Diphenhydramine Injection (Diphenhydram (08/12/23 11:15) Metoclopramide Injection (Metoclopramide (08/12/23 11:15) Ed Iv/Invasive Line Start (08/12/23 11:09) Ns Iv 1000 Ml (Ns Iv 1000 Ml) (08/12/23 11:15) Morphine Injection (Morphine Injection (08/12/23 12:14) Medications Given in ED Current Medications Medications Dose Ordered Sig/Erika Route Start Time Stop Time Status Last Admin Dose Admin Diphenhydramine HCl 25 mg ONCE ONCE IVP 08/12/23 11:15 08/12/23 11:16 DC 08/12/23 11:29 25 MG Ketorolac Tromethamine 15 mg ONCE ONCE IVP 08/12/23 11:15 08/12/23 11:16 DC 08/12/23 11:28 15 MG Metoclopramide HCl 10 mg ONCE ONCE IVP 08/12/23 11:15 08/12/23 11:16 DC 08/12/23 11:28 10 MG Vital Signs/I&O 08/12/23 08/12/23 10:50 13:05 Temp 36.6 36.6 Pulse 71 71 Resp 18 18 B/P (MAP) 118/69 (85) 118/69 Pulse Ox 99 99 Blood Pressure Mean: 85 Progress Progress Note : Progress Note Patient seen and evaluated, resting in bed with the lights off and sunglasses on, mild distress. Based on exam and symptoms, will treat headache with a migraine cocktail including IV fluids, Toradol, Benadryl, Reglan. Patient's headache is less severe than last week, she received a CT last week, will not repeat the CT today, although this was considered. Patient scheduled for an MRI of her brain next Tuesday. 1215 patient reevaluated, states that her headache is still present. Patient states that when she was seen at [facility], they gave her morphine which helped. I discussed the chance of rebound headache due to opioid pain medicat ion. Patient states that she would still like to try the morphine. This has been ordered. 1257 patient reports some improvement in her headache. Will proceed with discharge at this time. The headache clinic at [facility] prescribed her Phenergan. Patient instructed to follow-up with them and to keep her appointment for her MRI next Tuesday. Discharge instructions and return p recautions provided. Departure Impression Primary Impression: Migraine Disposition: 01 HOME, SELF-CARE Condition: Stable Departure-Patient Inst. Decision time for Depature: 12:57 Referrals: DWAINE HOFF MD (PCP/Family) Primary Care Physician Patient Instructions: Migraines (DC) Add. Discharge Instructions: Follow-up with the headache clinic and your primary care provider. Complete your MRI next Tuesday as scheduled. Get plenty of rest, drink plenty of water today. Return for difficulty with normal activities, abnormal behavior, difficulty walking, numbness, weakness, or any other new, concerning, or worsening symptoms. All discharge instructions reviewed with patient and/or family. Voiced understanding. Copy Copies To 1: DWAINE HOFF MD, BRITTANY R APRN Sep 15, 2023 11:15
[2023-08-12] MEDS ORDERED: morphine INJ 10 MG/ML 1ML (SYR OR VIAL) IVP STA (12:14)
[2023-08-12 13:05] VITALS: BP 118/69
== END 2023-08-12 13:05 | disposition home or self-care (01) ==
LOC: EDUNIT# 10:34 → ER 10:35
DX: G43.909 Migraine, unspecified, not intractable, without status migrainosus (principal)

== ENCOUNTER 2023-09-07 05:55 | Outpatient (CLI) | payer MEDICARE, MEDICAID ==
[~2023-09-07] VITALS: Ht 165.1 cm; Wt 84.8 kg
[2023-09-07] MEDS ORDERED: MAGN200T PO (13:31)
[2023-09-07] MEDS ORDERED: DILT120C71 PO (13:31)
[2023-09-07] MEDS ORDERED: MIRT-68 PO (13:31)
[2023-09-07] MEDS ORDERED: LEVO100T7 PO (13:31)
== END 2023-09-07 13:33 | disposition home or self-care (01) ==
LOC: PREOP 05:55
PROVIDERS: ATTEND Surgery
DX: Z01.818 Encounter for other preprocedural examination (principal)

== ENCOUNTER 2023-09-12 08:08 | Day surgery (SDC) | payer MEDICARE, MEDICAID ==
[~2023-09-12] VITALS: Ht 165.1 cm; Wt 84.8 kg
[~2023-09-12 08:08] MED LIST changes: +DILT120C71 PO; +LEVO100T7 PO; +MAGN200T PO; +MIRT-68 PO
[2023-09-12] MEDS ORDERED: LACTATED RINGERS 1,000 ML 1,000 ML IV STA (08:11)
[2023-09-12 08:36] VITALS: BP 127/72
--- NOTE | 2023-09-12 08:39 | Progress Note-Pre Operative ---
Pre-Operative Progress Note Date of Available H&P: Sep 01, 2023 Date H&P Reviewed: Sep 12, 2023 Time H&P Reviewed: 08:36 History & Physical: H&P Reviewed, Patient Examed, No changes noted Pre-Operative Diagnosis: Screening AUBREY VALENTINO DO Sep 12, 2023 08:39
[2023-09-12] MEDS ORDERED: MIDAZOLAM INJ 2 MG/2 ML VIAL ONE (09:57)
--- NOTE | 2023-09-12 10:24 | Progress Note-Post Operative ---
Post-Operative Progess Note Surgeon (s)/Application Assistant (s) Surgeon AUBREY VALENTINO DO Application Assistant: GREGG MejiaII Pre-Operative Diagnosis Screening Post-Operative Diagnosis Diverticula Melanosis Coli Int hemorrhoids Procedure & Operative Findings Date of Procedure 09/12/23 Procedure Performed/Findings Colonoscopy PROCEDURE NOTE: After informed consent was obtained, the patient was brought to the endoscopy suite, placed in bed in left lateral decubitus position. She was administered IV sedation by the GRIPPER MACHINE OPERATOR who then monitored her vitals the entire time, heart rate, blood pressure and pulse ox and the scope was inserted, pushed all the way to about 150 cm and pushed into the cecum, took a picture of appendiceal orifice and noted the ileocecal valve. Then slowly withdrew the scope insufflating to look circumferentially at the suarez starting in the cecum, up the ascending colon to the hepatic flexure, then down the transverse colon, splenic flexure, into the descending colon down in the sigmoid and then into the rectal vault and retroflexed the scope. Took picture of the internal hemorrhoids. I had also taken a picture of diverticula and some melanosis coli during the procedure. The patient tolerated the procedure. She was recovered in endoscopy suite. Recommended for repeat colonoscopy in 10 years. Anesthesia Type IV sedation by Anesthesia Estimated Blood Loss Estimated blood loss (mL): none Specimens/Packing Specimens Removed none AUBREY VALENTINO DO Sep 12, 2023 10:24
[2023-09-12 10:25] VITALS: BP 126/60
--- NOTE | 2023-09-12 10:25 | Endoscopy Discharge Instruct ---
Endo Procedure/Findings Findings 1.: Diverticulosis 2.: Internal Hemorrhoids 3.: Other Findings (Melanosis coli) Discharge Instructions - Activity: You might feel a little sleepy until tomorrow. This is due to the medicine you received to relax you. Until tomorrow, you should: NOT drive a car, operate machinery or power tools. NOT drink any alcoholic beverages. NOT make any important decisions or sign importortant papers. Do not return to work until tomorrow, unless otherwise instructed. Resume previous activities tomorrow. Diet: Start by taking liquids. If you tolerate liquids, advance to solid food. 1.: Colonscopy in 10 years Notify Physician - If you experience excessive bleeding, unusual abdominal pain, fever, or chest pain, contact your doctor immediately. Follow-Up: Other Follow up in my office in one week AUBREY VALENTINO DO Sep 12, 2023 10:25
[2023-09-12 10:30] VITALS: BP 126/64
[2023-09-12 11:00] VITALS: BP 128/68
[2023-09-12 11:40] VITALS: BP 128/68
--- NOTE | 2023-09-12 14:59 | Anesthesia-General Post-Op ---
MAC Patient Condition Mental Status/LOC: Same as Preop Cardiovascular: Satisfactory Nausea/Vomiting: Absent Respiratory: Satisfactory Pain: Controlled Complications: Absent Post Op Complications Complications None Follow Up Care/Instructions Patient Instructions None needed. Anesthesiology Discharge Order Discharge Order Patient was doing well after the procedure with no complaints, stable vital signs, no apparent adverse anesthesia problems. No complications reported per nursing. ULYSSES LINN DO Sep 12, 2023 14:59
== END 2023-09-12 11:40 | disposition home or self-care (01) ==
LOC: ENDO 08:08
PROVIDERS: ATTEND Surgery
DX: Z12.11 Encounter for screening for malignant neoplasm of colon (principal); K57.30 Diverticulosis of large intestine without perforation or abscess without bleeding; K64.8 Other hemorrhoids; K63.89 Other specified diseases of intestine; K21.9 Gastro-esophageal reflux disease without esophagitis; E66.9 Obesity, unspecified; Z79.899 Other long term (current) drug therapy; Z68.31 Body mass index [BMI] 31.0-31.9, adult; Z80.0 Family history of malignant neoplasm of digestive organs